=== PATIENT | female | born 1935 | race Caucasian/White ===

== ENCOUNTER → 2019-01-26 | Outpatient (CLI) | payer MEDICARE ==
[~2019-01-26] MED LIST: AMOX-355 PO; CALC-656 PO; CYAN10007 PO; DOCU100T7 PO; FLUT16SP22 NS; HYDR1TAB PO; LOSA50TA6 PO; MULT-608 PO; OMEG1CAP51 PO; PRD20T PO
--- NOTE | 2019-01-26 11:19 | Diagnostic Imaging Report ---
KNEE 3 VIEW RIGHT COMPARISON: None available. INDICATION: Acute right knee pain. No known injury. TECHNIQUE: Non-weight bearing AP, oblique, and lateral views of the right knee. FINDINGS: No fracture or traumatic malalignment. Minimal tricompartmental joint space narrowing and marginal ossified formation. No knee joint effusion. IMPRESSION: No acute osseous abnormality. Dictated by: Dictated on workstation # [id number]
== END ==
LOC: RAD FS 10:17
PROVIDERS: ATTEND Nurse Practitioner Family
DX: M25.561 Pain in right knee (principal)
CPT/HCPCS: 73562

== ENCOUNTER 2019-11-12 06:08 | Inpatient (IN) | payer MEDICARE ==
[2019-11-12] VITALS (16 sets, daily range): BP systolic 81–127; BP diastolic 39–81
[~2019-11-12] VITALS: Ht 165.1 cm; Wt 73.8 kg
[2019-11-12] MEDS ORDERED: HEParin 1000 UNIT/ML (10ML VIAL) FOR BOLUS ONE ×2 (06:26→06:44)
[2019-11-12] MEDS ORDERED: ONDANSETRON 4 MG/2 ML (SDV) Z0FRAN IVP ONE (06:30)
[2019-11-12] MEDS ORDERED: HEParin 1000 UNIT/ML (10ML VIAL) FOR BOLUS IV SCH (06:30)
--- NOTE | 2019-11-12 06:35 | NUR ---
IVF INFUSING AT TIME OF DEPARTURE TO [facility].
[2019-11-12 06:38] LABS: BASOPHILS % (AUTO) 1 % (0-10); EOSINOPHILS # (AUTO) 0.1 10^3/uL (0.0-0.3); EOSINOPHILS % (AUTO) 2 % (0-10); HEMATOCRIT 35 % (35-52); HEMOGLOBIN 11.4 G/DL (11.5-16.0); LYMPHOCYTES # (AUTO) 1.7 X 10^3 (1.0-4.0); LYMPHOCYTES % (AUTO) 29 % (12-44); MEAN CORPUSCULAR HEMOGLOBIN 31 PG (25-34); MEAN CORPUSCULAR HGB CONC 33 G/DL (32-36); MEAN CORPUSCULAR VOLUME 93 FL (80-99); MEAN PLATELET VOLUME 8.8 FL (7.4-10.4); MONOCYTES # (AUTO) 0.5 X 10^3 (0.0-1.0); MONOCYTES % (AUTO) 8 % (0-12); NEUTROPHILS # (AUTO) 3.7 X 10^3 (1.8-7.8); NEUTROPHILS % (AUTO) 61 % (42-75); PLATELET COUNT 220 10^3/uL (130-400); RED CELL DISTRIBUTION WIDTH 12.8 % (10.0-14.5)
--- NOTE | 2019-11-12 06:39 | Cardiology History & Physical ---
HPI-Cardiology Cardiology Consultation Date of Consultation 11/12/19 Date of Admission Time Seen by Provider: 06:36 Indication: chest pain HPI 84 years old lady with no significant past history started to have back pain for the past 2 days, had chest pain with her back pain this morning, called ambulance and noted to have ST elevation NC in the inferior wall, given aspirin and morphine, feeling better but still having active chest pain PMH-Cardiology Immunizations Up To Date Date of Influenza Vaccine: Jul 13, 2011 Reproductive System Hx Reproductive Disorders: No Other PMHx no significant past history Social History Patient Social History Employed/Student: retired Alcohol Use: Denies Use Smoking: Never smoker Recent Foreign Travel: No Contact w/other who traveled: No Family Hx Other noncontributory ROS-Cardiology Review of Systems General: No Chills, No Night Sweats, No Fatigue, No Malaise, No Appetite HEENT: No Head Aches, No Visual Changes, No Eye Pain, No Ear Pain, No Dysphasia, No Sinus Congestion, No Post Nasal Drip, No Sore Throat Pulmonary: No Dyspnea, No Cough, No Pleuritic Chest Pain Cardiovascular: Chest Pain; No: Palpitations, Orthopnea, Paroxysmal Noc. Dyspnea, Edema, Lt Headedness Gastrointestinal: No: Nausea, Vomiting, Abdominal Pain, Diarrhea, Constipation, Melena, Hematochezia Genitourinary: No Dysuria, No Frequency, No Incontinence, No Hematuria, No Retention Musculoskeletal: back pain; No: neck pain, shoulder pain, arm pain, hand pain, leg pain, foot pain Neurological: No: Weakness, Numbness, Incoordination, Change in speech, Confu mira, Seizures Home Medications & Allergies Allergies: Coded Allergies: No Known Drug Allergies (Unverified , 12/02/11) Home Medication List Reviewed: Yes Exam-Cardiology Exam General Appearance: Alert, Oriented X3, Cooperative, No Acute Distress HEENT: Atraumatic, PERRLA Respiratory: Clear to Auscultation, Normal Air Movement Cardiovascular: Regular Rate, Normal S1, Normal S2, No Murmurs Abdominal: Normal Bowel Sounds, Soft, No Tenderness, No Hepatosplenomegaly, No Masses Extremities: No Clubbing, No Cyanosis, No Edema, Normal Pulses, No Ten derness/Swelling Skin: No Rashes, No Breakdown, No Significant Lesion Neuro: Normal Gait, Normal Speech, Strength at 5/5 X4 Ext, Normal Tone, Sensation Intact Psych/Mental Status: Mental Status NL, Mood NL Results Labs Labs Laboratory Tests 11/12/19 06:30: A/P-Cardiology Admission Diagnosis acute ST elevation myocardial infarction Coronary artery disease Hypertension Admission Status: Inpatient Order (span 2 midnights) Reason for Inpatient Admission: AMI Assessment/Plan Acute ST elevation myocardial infarction in the inferior wall, chest pain is bet ter but still having ST elevation, planning to proceed with cardiac catheterization Coronary artery disease, planning for cardiac catheterization Hypertension, monitor blood pressure Hyperlipidemia I will start statin ZULLY CRANE MD Nov 12, 2019 06:39
--- NOTE | 2019-11-12 06:40 | Cardiac Procedure Note-CS/ASA ---
Pre-Procedure Note Pre-Op Procedure Note H&P Reviewed The H&P was reviewed, patient examined and no changes noted. Date H&P Reviewed: Nov 12, 2019 Time H&P Reviewed: 06:39 Conscious Sedation Pre-Proced Time 06:39 ASA Score 3 For ASA 3 and 4: Consider anesthesia and medical clearance. Also, for patients with a history of failed moderate sedation consider anesthesia. Airway Lungs Heart ASA score ASA 1: a normal healthy patient ASA 2: a patient with a mild systemic disease (mid diabetes, controlled hypertension, obesity x ASA 3: a patient with a severe systemic disease that limits activity (angina, COPD, prior Myocardial infarction) ASA 4: a patient with an incapacitating disease that is a constant threat to life (CHF, renal failure) ASA 5: a moribund patient not expected to survive 24 hrs. (ruptured aneurysm) ASA 6: a declared brain- patient whose organs are being harvested. For emergent operations, add the letter E after the classification Mallampati Classification Grade 3 Sedation Plan Analgesia, Amnesia, Plan communicated to team members, Discussed options with patient/fam, Discussed risks with patient/fam The patient is an appropriate candidate to undergo the planned procedure, sedation, and anesthesia. The patient immediately re-assessed prior to indication. ZULLY CRANE MD Nov 12, 2019 06:39
--- NOTE | 2019-11-12 06:42 | ED Chest Pain ---
General Stated Complaint: STEMI Source: patient Exam Limitations: no limitations History of Present Illness Date Seen by Provider: Nov 12, 2019 Time Seen by Provider: 06:19 Initial Comments Here with report of chest pain that initially started yesterday and Cleared overnight but noted again this morning at 4:30 when she woke up. She tried to go to the gym to see if that would help. She mentioned that she had the pain started as back pain and then to the chest centrally. Associated with nausea. At the gym, she noticed worsening pain. She has no significant medical problems and is not on any medicines except for supplements. EMS was summoned to the gym and brought her here. They were able to initiate STEMI activation from the field at about 0604 when they're able to get cell service. Music Manager team activated. They did give aspirin 324 mg by mouth as well as 2 mg of morphine IV and she is currently pain-free but nauseated. Timing/Duration: 24 hours, getting worse, intermittent Severity/Quality: moderate, severe Location: central, back Radiation: back Activities at Onset: none Prior CP/Workup: no prior chest pain, no prior cardiac workup ASA po MEDICAID SPECIALIST: Yes NTG SL MEDICAID SPECIALIST: No Associated Symptoms: No abdominal pain; back pain; No diaphoresis; fatigue; No fever/chills; nausea/vomiting; No shortness of breath; weakness Allergies and Home Medications Allergies Coded Allergies: No Known Drug Allergies (Unverified , 12/02/11) Home Medications Amoxicillin/Clavulanate K 1 Each Tablet, 1 EACH PO BID, (Reported) Calcium Carbonate/Vitamin D3 1 Each Tablet, 1 EACH PO BID, (Reported) Docusate Sodium 100 Mg Tablet, 100 MG PO BID, (Reported) Fluticasone Propionate 16 Gm Naspr, 16 GM NS DAILY, (Reported) Hydrocodone Bit/Acetaminophen 1 Each Tablet, 1-2 EACH PO Q4HR PRN, (Reported) Losartan Potassium 50 Mg Tablet, 50 MG PO BID, (Reported) Multivitamins 1 Tab Tablet, 1 TAB PO DAILY, (Reported) [place]-3 Fatty Acids/Fish Oil 1 Each Capsule, 1 EACH PO TID, (Reported) Prednisone 20 Mg Tab, 20 MG PO DAILY, (Reported) , Fri, Prednisone 20 Mg Tab, 40 MG PO DAILY, (Reported) Friday, Friday, Friday Patient Home Medication List Home Medication List Reviewed: Yes Review of Systems Review of Systems Constitutional: see HPI; No chills, No fever EENTM: No Symptoms Reported Respiratory: No Symptoms Reported Cardiovascular: Chest Pain; Denies Edema Gastrointestinal: No Symptoms Reported Genitourinary: No Symptoms Reported Musculoskeletal: no symptoms reported All Other Systems Reviewed Negative Unless Noted: Yes Past Nunqiwb-Hrzdhs-Wanpla Hx Past Med/Social Hx: Reviewed Nursing Past Med/Soc Hx Patient Social History Recreational Drug Use: No Smoking Status: Never a Smoker Recent Foreign Travel: No Contact w/Someone Who Travel: No Immunizations Up To Date Date of Influenza Vaccine: Jul 13, 2011 Past Medical History Surgeries: Yes (sinus) Respiratory: No Cardiac: No Neurological: No : No Reproductive Disorders: No Family Medical History Reviewed Nursing Family Hx No Pertinent Family Hx Physical Exam Vital Signs Capillary Refill : Height, Weight, BMI Height: '" Weight: lbs. oz. kg; BMI Method: General Appearance: No Apparent Distress, WD/WN HEENT: PERRL/EOMI, Pharynx Normal Neck: Non Tender, Supple Respiratory: Lungs Clear, Normal Breath Sounds Cardiovascular: Regular Rate, Rhythm, No Murmur Gastrointestinal: Non Tender, Soft Extremity: Normal Range of Motion, Non Tender Neurologic/Psychiatric: Alert, Oriented x3 Skin: Normal Color, Warm/Dry Progress/Results/Core Measures Results/Orders Lab Results Laboratory Tests Test 11/12/19 06:30 Range/Units My Orders Orders - BRYCE JAIN MD Cbc With Automated Diff (11/12/19 06:19) Magnesium (11/12/19 06:19) Chest 1 View, Ap/Pa Only (11/12/19 06:19) Ekg Tracing (11/12/19 06:19) Comprehensive Metabolic Panel (11/12/19 06:19) Myoglobin Serum (11/12/19 06:19) Protime With Inr (11/12/19 06:19) Partial Thromboplastin Time (11/12/19 06:19) O2 (11/12/19 06:19) Monitor-Rhythm Ecg Trace Only (11/12/19 06:19) Lipid Panel (11/13/19 06:00) Ed Iv/Invasive Line Start (11/12/19 06:19) Troponin I (11/12/19 06:19) Ondansetron Injection (Zofran Injectio (11/12/19 06:30) Heparin (Bolus Per Protocol) (Heparin (B (11/12/19 06:26) Progress Progress Note : Progress Note Seen and evaluated. IV and aspirin by EMS. Labs, chest x-ray and EKG ordered. I did activate the Music Manager team and did discuss the case with Dr. Wilson at 0605. EKG does indicate acute MS inferior wall. 0635: Dr. Wilson has seen the patient and Music Manager team is here. Patient is going to catheter lab. Heparin 5000 units IV ordered for Dr. Wilson request. This was given. Patient also received Zofran 4 mg IV. Chest x-ray not done prior to patient going to catheter lab. Initial ECG Impression Date: Nov 12, 2019 Initial ECG Impression Time: 06:21 Initial ECG Rate: 64 Initial ECG Rhythm: S.Tach Initial ECG Comparisson: Changed Comment Sinus tachycardia with ST elevation in leads 2, 3 and aVF with reciprocal changes in V1 and V2 as well as aVL. Consistent with inferior and posterior wall MS. Departure Communication (Admissions) Time/Spoke to Admitting Phy: 06:05 Impression Primary Impression: ST elevation MS (STEMI) Qualified Codes: I21.3 - ST elevation (STEMI) myocardial infarction of unspecified site Disposition: ADMITTED INPATIENT Condition: Critical Admissions Decision to Admit Reason: Admit from ER (General) Decision to Admit/Date: Nov 12, 2019 Time/Decision to Admit Time: 06:19 Departure-Patient Inst. Referrals: [facility] (PCP) Primary Care Physician EMERALD CONTRERAS APRN (Family) Primary Care Physician BRYCE JAIN MD Nov 12, 2019 06:42
[2019-11-12] MEDS ORDERED: fentaNYL INJECTION 100 MCG/2 ML AMP ONE (06:44)
[2019-11-12] MEDS ORDERED: NS (IVPB) 250 ML ONE (06:44)
[2019-11-12] MEDS ORDERED: HEParin (CATH LAB) 2,000 ML IV ONE (06:44)
[2019-11-12] MEDS ORDERED: niCARdipine 25 MG/10 ML (CARDENE) AMP IV ONE (06:44)
[2019-11-12] MEDS ORDERED: NITRO DRIP 25000 MCG/D5W 250 ML IV ONE (06:44)
[2019-11-12] MEDS ORDERED: MIDAZOLAM 5 MG/5 ML (VERSED) VIAL ONE (06:44)
[2019-11-12] MEDS ORDERED: LIDOCAINE 1% INJ 20 ML 20 ML VIAL ONE (06:44)
[2019-11-12] MEDS ORDERED: NS IV 1000 ML 1,000 ML ONE ×2 (06:44→07:37)
[2019-11-12] MEDS ORDERED: EPTIFIBATIDE BOLUS 20 ML IV ONE (06:45)
[2019-11-12] MEDS ORDERED: ATROPINE INJECTION 1 MG/10 ML SYR (ABBOTT) ONE (06:45)
[2019-11-12 06:51] LABS: PROTHROMBIN TIME PATIENT 14.1 SEC (12.2-14.7)
[2019-11-12] MEDS: NS IV 1000 ML 1,000 ML IV SCH ×2 (07:00→18:16)
[2019-11-12] MEDS ORDERED: DOPamine DRIP 250 ML IV ONE (07:02)
[2019-11-12 07:14] LABS: ALANINE AMINOTRANSFERASE 13 U/L (0-55); ALBUMIN 3.6 GM/DL (3.2-4.5); ALKALINE PHOSPHATASE 72 U/L (40-136); BILIRUBIN,TOTAL 0.2 MG/DL (0.1-1.0); BUN/CREATININE RATIO 20; CALCIUM 8.3 MG/DL (8.5-10.1); CARBON DIOXIDE 22 MMOL/L (21-32); CHLORIDE 109 MMOL/L (98-107); CREATININE SERUM 0.74 MG/DL (0.60-1.30); GFR ESTIMATED > 60; GLUCOSE 125 MG/DL (70-105); MAGNESIUM 1.7 MG/DL (1.6-2.4); POTASSIUM 3.7 MMOL/L (3.6-5.0); SODIUM 140 MMOL/L (135-145); TOTAL PROTEIN 6.4 GM/DL (6.4-8.2)
[2019-11-12] MEDS ORDERED: morphine INJ 10 MG/ML 1ML (SYR OR VIAL) ONE (07:24)
[2019-11-12] MEDS ORDERED: CLOPIDOGREL 300 MG (PLAVIX) TABLET PO ONE (07:25)
[2019-11-12] MEDS ORDERED: PATIENT MAY USE OWN MEDS, ALL PO SCH (07:45)
[2019-11-12] MEDS ORDERED: NS IV 1000 ML 1,000 ML IV SCH (08:00)
--- NOTE | 2019-11-12 10:14 | Cardiac Cath Report ---
Cardiac Cath Report Physician (s)/Cow Buyer (s) Physician ZULLY CRANE MD Pre-Procedure Diagnosis Pre-Procedure Diagnosis: acute myocardial infarction Post-Procedure Note Procedure Start Date: Nov 12, 2019 Name of Procedure: left heart catheterization Stent to the right coronary artery Left ventriculogram Aortic root angiogram Aortic arch angiogram Findings/Procedure Note PROCEDURE NOTE: 84-year-old lady admitted with acute ST elevation myocardial infarctions inferior wall, started to have chest pain this morning, has been having back pain for few days. Brought for emergency cardiac catheterization. After explaining the procedure to the patient, all pros and cons were explained, all questions were answered. The patient signed the consent and then she was placed on the cardiac catheterization laboratory. Groin was prepped SL fashion local anesthesia was used. Sheath placed in the right femoral artery, I used JL4 0.5 Taxus the left coronary system, angiogram was done then advanced FR guide to the right coronary artery that was totally occluded, patient received 5000 units of heparin in the emergency room, double bolus Integrilin and aspirin and Plavix. BMW wire was advanced then using 3 x 20 balloon predilated, had some establishment of flow, door to balloon time was 34 minutes, there was severe stenosis in the midright coronary artery that was resistant to multiple inflation, finally I was able to break it (under 20 tae pressure, proceeded with balloon to the mid and distal right coronary artery then stent deployment using Annie 3.5 x 23 followed by 3.5 x 12 Annie overlapping stents expanded to 4 mm using a noncompliant balloon, angiogram showed excellent results. Pigtail catheter advanced to the left ventricular cavity and left ventricular gram was done then aortic root angiogram was done and aortic arch angiogram was done. At the end of the procedure the sheath was removed. Closure device was used FINDINGS: Hemodynamics LV 101/23, end-diastolic pressure 23 Aorta 123/64 mean of 73 ANATOMY: Left Main has mild disease Left Anterior Descending has severe stenosis at the midportion, tortuous artery Left Circumflex has moderate disease Right Coronory Artery is large dominant artery, totally occluded with heavy thrombus, complex intervention with multiple balloons then deployment of 2 overlapping Annie stent 3.5 x 23 followed by 3.5 x 12 mm expanded to 4 mm with excellent results LV Gram showed mild hypokinesia at the inferior wall, ejection fraction 50 percent Aorta evaluation done with aortic root angiogram which showed dilated ascending aorta and aortic root measuring 3.6 cm. Aortic arch angiogram showed dilated aortic arch and descending thoracic aortic aneurysm measuring 4 cm, calcified right innominate, left subclavian and left carotid arteries. CONCLUSION: 1. Acute ST elevation myocardial infarction with occlusion of the right coronary artery, door to balloon time 34 minutes. 2. Balloon angioplasty and stenting to the right coronary artery using 2 overlapping stents Annie 3.5 x 23 and 3.5 x 12 mm expanded to 4 mm with good results 3. Severe stenosis in the mid LAD, will need intervention at a later point 4. Moderate disease in the circumflex artery 5. Normal left ventricle size with hypokinesia at the inferior wall and some ejection fraction 50 percent 6. Thoracic aortic aneurysm, ascending aorta measuring 3.6 cm and ascending aorta measuring 4 cm DISCUSSION AND RECOMMENDATION: Maximize medical therapy, possible intervention on the LAD in the future Anesthesia Type: Conscious Sedation Estimated blood loss (mL): 50 ml Contrast Amount: 199 ml Total Radiation Dose: 855 mGy Post-Procedure Diagnosis Post-operative diagnosis: Acute ST elevation myocardial infarction Coronary artery disease Hypertension Thoracic aortic aneurysm ZULLY CRANE MD Nov 12, 2019 10:14
[2019-11-12] MEDS ORDERED: MULT-436 PO (13:17)
[2019-11-12] MEDS ORDERED: ZINC50TA51 PO (13:17)
[2019-11-12] MEDS ORDERED: VITA400C60 PO (13:17)
[2019-11-12] MEDS ORDERED: OMG1KC PO (13:17)
[2019-11-12] MEDS ORDERED: LORA10TA76 PO (13:17)
[2019-11-12] MEDS ORDERED: DOCU100C37 PO (13:17)
--- NOTE | 2019-11-12 13:18 | NUR ---
PATIENT STATES SHE DOES NOT TAKE ANY PRESCRIPTION MEDICATION. SHE TAKES THE FOLLOWING OTC: ONE A DAY VITAMIN DAILY FISH OIL BID VITAMIN E DAILY CLARITIN (SOME EQUATE VERSION) DAILY ZINC DAILY STOOL SOFTENER BID SHE WISHES TO USE [facility] [facility] IN [place] FOR ANY NEW PRESCRIPTION NEEDS.
--- NOTE | 2019-11-12 13:26 | Consultation - Hospitalist ---
HPI History of Present Illness: HPI/Chief Complaint 84-year-old male with no known medical history who presented to the emergency department due to chest pain. She reports that her symptoms started roughly 1 week ago with back pain. This continued to worsen and became very severe yesterday. She kept thinking that this would get better when she went to work out this morning she was unable to exercise at her normal level. She decided to drive home instead and became very diaphoretic. She went home and was nauseous and felt as if she needed to have a bowel movement. After this she laid down on her bed and called her landlord who recommended calling 911. When EMS got there EKG was done which revealed a STEMI and she was brought to the emergency room and taken emergently to catheter lab. She had an RCA stent and has residual severe disease in LAD. She was also found to have ascending and descending aortic aneurysms. She was admitted to Dr. Wilson and I'm consultation for medical management. Source: patient Exam Limitations: no limitations Date Seen 11/12/19 Attending Physician Tiffanie Wilson MD [facility] Referring Physician Dr Wilson Date of Admission Home Medications & Allergies Home Medications Reviewed patient Home Medication Reconciliation performed by pharmacy medication reconciliations automotive maintenance technician and/or nursing. Patients Allergies have been reviewed. Allergies Allergies Coded Allergies No Known Drug Allergies (Unverified12/02/11) Past Yqpyrlb-Eiktlq-Isfdtp Hx Past Med/Social Hx: Reviewed Nursing Past Med/Soc Hx Patient Social History Employed/Student: retired Alcohol Use: Denies Use Recreational Drug Use: No Smoking Status: Never a Smoker Recent Foreign Travel: No Contact w/other who traveled: No Recent Infectious Disease Expo: No Immunizations Up To Date Date of Influenza Vaccine: Jul 13, 2011 Past Medical History : No Reproductive: No Family History Reviewed Nursing Family Hx No Pertinent Family Hx Review of Systems Constitutional: see HPI, diaphoresis EENTM: no symptoms reported Respiratory: no symptoms reported Cardiovascular: see HPI Gastrointestinal: see HPI Genitourinary: no symptoms reported Musculoskeletal: no symptoms reported Skin: no symptoms reported Psychiatric/Neurological: No Symptoms Reported Physical Exam Physical Exam Vital Signs Vital Signs - First Documented 11/12/19 11/12/19 06:20 06:50 Temp 35.7 Pulse 63 Resp 16 B/P (MAP) 181/83 (115) Pulse Ox 98 O2 Delivery Nasal Cannula O2 Flow Rate 2.00 FiO2 98 Capillary Refill : Less Than 3 Seconds Height, Weight, BMI Height: '" Weight: lbs. oz. kg; 24.10 BMI Method: General Appearance: No Apparent Distress, WD/WN HEENT: Pharynx Normal; No Scleral Icterus (L), No Scleral Icterus (R) Neck: Supple; No Thyromegaly Respiratory: Lungs Clear, No Accessory Muscle Use, No Respiratory Distress Cardiovascular: Regular Rate, Rhythm, No JVD, No Murmur Gastrointestinal: Normal Bowel Sounds, Non Tender, Soft Extremity: No Calf Tenderness, No Pedal Edema Neurologic/Psychiatric: Alert, Oriented x3, Normal Mood/Affect Skin: Normal Color, Warm/Dry Results Results/Procedures Labs Laboratory Tests 11/12/19 06:30 Patient resulted labs reviewed. 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
[2019-11-12] MEDS: meTOprolol TARTRATE 25 MG (LOPRESSOR) TABLET PO SCH ×2 (15:59→20:11)
[2019-11-12] MEDS: ASPIRIN E.C. 81 MG (ECOTRIN) TAB PO SCH (15:59)
[2019-11-12] MEDS: CLOPIDOGREL 75 MG (PLAVIX) TABLET PO SCH (15:59)
[2019-11-13] VITALS (23 sets, daily range): BP systolic 68–135; BP diastolic 41–87
[2019-11-13 03:40] LABS: HEMOGLOBIN 9.3 G/DL (11.5-16.0); MEAN PLATELET VOLUME 9.1 FL (7.4-10.4); RED CELL DISTRIBUTION WIDTH 12.8 % (10.0-14.5); WHITE BLOOD COUNT 5.9 10^3/uL (4.3-11.0)
[2019-11-13] MEDS: NS IV 1000 ML 1,000 ML IV SCH ×2 (03:42→14:22)
[2019-11-13 04:03] LABS: BUN/CREATININE RATIO 18; CALCIUM 7.8 MG/DL (8.5-10.1); CARBON DIOXIDE 19 MMOL/L (21-32); CHLORIDE 108 MMOL/L (98-107); CHOLESTEROL 134 MG/DL (< 200); CREATININE SERUM 0.73 MG/DL (0.60-1.30); GFR ESTIMATED > 60; GLUCOSE 93 MG/DL (70-105); HDL CHOLESTEROL 42 MG/DL (40-60); POTASSIUM 3.8 MMOL/L (3.6-5.0); SODIUM 135 MMOL/L (135-145); TRIGLYCERIDES 43 MG/DL (<150); VLDL CHOLESTEROL 9 MG/DL (5-40)
--- NOTE | 2019-11-13 07:54 | Cardiology Progress Note ---
Subjective Date Seen by Provider: Nov 13, 2019 Time Seen by Provider: 07:52 Subjective/Events-last exam Patient is laying down in bed, feeling well, no chest pain was reported. Review of Systems General: No Chills, No Night Sweats, No Fatigue, No Malaise, No Appetite, No Other HEENT: No Head Aches, No Visual Changes, No Eye Pain, No Ear Pain, No Dysphasia, No Sinus Congestion, No Post Nasal Drip, No Sore Throat, No Other Pulmonary: No Dyspnea, No Cough, No Pleuritic Chest Pain, No Other Cardiovascular: No: Chest Pain, Palpitations, Orthopnea, Paroxysmal Noc. Dyspnea, Edema, Lt Headedness, Other Objective-Cardiology Exam Last Set of Vital Signs Vital Signs 11/12/19 11/12/19 11/13/19 11/13/19 06:20 10:25 03:22 06:00 Temp 36.4 Pulse 52 Resp 14 B/P (MAP) 93/55 (68) Pulse Ox 97 O2 Delivery Room Air O2 Flow Rate 2.00 FiO2 98 Capillary Refill : Less Than 3 Seconds I&O Intake and Output 11/13/19 00:00 Intake Total 4330 ml Output Total 425 ml Balance 3905 ml Intake Oral 1330 ml IV Total 3000 ml Output Urine Total 425 ml # Voids 4 Daily Weight Change No General: Alert, Oriented X3, Cooperative, No Acute Distress HEENT: Atraumatic, PERRLA Lungs: Clear to Auscultation, Normal Air Movement Heart: Regular Rate, Normal S1, Normal S2, No Murmurs Abdomen: Normal Bowel Sounds, Soft, No Tenderness, No Hepatosplenomegaly, No Masses Extremities: No Clubbing, No Cyanosis, No Edema, Normal Pulses, No Tenderness/Swelling Skin: No Rashes, No Breakdown, No Significant Lesion Neuro: Normal Gait, Normal Speech, Strength at 5/5 X4 Ext, Normal Tone, Sensation Intact Psych/Mental Status: Mental Status NL, Mood NL Results Lab Laboratory Tests 11/13/19 03:23 A/P-Cardiology Admission Diagnosis acute ST elevation myocardial infarction Coronary artery disease Hypertension Assessment/Plan Acute ST elevation myocardial infarction in the inferior wall, status post emergency cardiac catheterization with 2 stents to the right coronary artery Coronary artery disease, cardiac catheterization was done on November 12, 2019 showing total occlusion of the right coronary artery with heavy thrombus, deployment of 2 overlapping stents Annie 3.5 x 23 and 3.5 x 12 expanded to 4 mm with excellent results. Has tortuous LAD with severe stenosis at the midp ortion, thoracic aortic aneurysm was noted in the ascending and descending aorta, possible abdominal aortic aneurysm. Planning to arrange for evaluation at a tertiary care center Hypertension, currently borderline hypotension, monitor blood pressure Hyperlipidemia, started on Lipitor 80 mg daily. Continue to monitor Clinical Quality Measures AMI/AHF: ASA po Prior to arrival: Yes DVT/VTE Risk/Contraindication: Risk Factor Score Per Nursin RFS Level Per Nursing on Admit: 4+=Very High ZULLY CRANE MD Nov 13, 2019 07:54
[2019-11-13] MEDS: ASPIRIN E.C. 81 MG (ECOTRIN) TAB PO SCH (08:40)
[2019-11-13] MEDS: CLOPIDOGREL 75 MG (PLAVIX) TABLET PO SCH (08:40)
[2019-11-13] MEDS: meTOprolol TARTRATE 25 MG (LOPRESSOR) TABLET PO SCH ×2 (08:40→20:41)
[2019-11-13] MEDS ORDERED: ACETAMINOPHEN 500 MG TAB (TYLENOL) ONE (09:55)
[2019-11-13] MEDS ORDERED: ACETAMINOPHEN 500 MG TAB (TYLENOL) PO PRN (10:00)
[2019-11-14] VITALS (24 sets, daily range): BP systolic 104–169; BP diastolic 52–141
[2019-11-14 03:36] LABS: BASOPHILS % (AUTO) 0 % (0-10); EOSINOPHILS # (AUTO) 0.2 10^3/uL (0.0-0.3); EOSINOPHILS % (AUTO) 4 % (0-10); HEMATOCRIT 28 % (35-52); HEMOGLOBIN 9.1 G/DL (11.5-16.0); LYMPHOCYTES # (AUTO) 2.2 X 10^3 (1.0-4.0); LYMPHOCYTES % (AUTO) 44 % (12-44); MEAN CORPUSCULAR HEMOGLOBIN 31 PG (25-34); MEAN CORPUSCULAR HGB CONC 32 G/DL (32-36); MEAN CORPUSCULAR VOLUME 95 FL (80-99); MEAN PLATELET VOLUME 9.2 FL (7.4-10.4); MONOCYTES # (AUTO) 0.5 X 10^3 (0.0-1.0); MONOCYTES % (AUTO) 10 % (0-12); NEUTROPHILS # (AUTO) 2.1 X 10^3 (1.8-7.8); NEUTROPHILS % (AUTO) 42 % (42-75); PLATELET COUNT 177 10^3/uL (130-400); RED CELL DISTRIBUTION WIDTH 12.8 % (10.0-14.5); WHITE BLOOD COUNT 4.9 10^3/uL (4.3-11.0)
[2019-11-14 04:16] LABS: BUN/CREATININE RATIO 11; CALCIUM 8.1 MG/DL (8.5-10.1); CARBON DIOXIDE 20 MMOL/L (21-32); CHLORIDE 111 MMOL/L (98-107); CREATININE SERUM 0.74 MG/DL (0.60-1.30); GFR ESTIMATED > 60; GLUCOSE 103 MG/DL (70-105); MAGNESIUM 1.7 MG/DL (1.6-2.4); PHOSPHORUS 2.3 MG/DL (2.3-4.7); POTASSIUM 3.7 MMOL/L (3.6-5.0); SODIUM 138 MMOL/L (135-145)
[2019-11-14] MEDS: MAGNESIUM 1 GM/100 ML IVPB 100 ML IV SCH ×3 (05:27→06:19)
[2019-11-14] MEDS: KCL 20 MEQ TAB (K-DUR) PO SCH (06:18)
[2019-11-14] MEDS: POTASSIUM CL 10MEQ/50ML IVPB 50 ML IV SCH (06:18)
--- NOTE | 2019-11-14 08:12 | Cardiology Progress Note ---
Subjective Date Seen by Provider: Nov 14, 2019 Time Seen by Provider: 08:11 Subjective/Events-last exam Patient is laying down in bed, feeling better. No new complaint Review of Systems General: No Chills, No Night Sweats, No Fatigue, No Malaise, No Appetite, No Other HEENT: No Head Aches, No Visual Changes, No Eye Pain, No Ear Pain, No Dysphasia, No Sinus Congestion, No Post Nasal Drip, No Sore Throat, No Other Pulmonary: No Dyspnea, No Cough, No Pleuritic Chest Pain, No Other Cardiovascular: No: Chest Pain, Palpitations, Orthopnea, Paroxysmal Noc. Dyspnea, Edema, Lt Headedness, Other Objective-Cardiology Exam Last Set of Vital Signs Vital Signs 11/12/19 11/12/19 11/14/19 11/14/19 06:20 10:25 04:16 06:00 Temp 37.0 Pulse 66 Resp 22 B/P (MAP) 128/82 (97) Pulse Ox 92 O2 Delivery Room Air O2 Flow Rate 2.00 FiO2 98 Capillary Refill : Less Than 3 Seconds I&O Intake and Output 11/14/19 00:00 Intake Total 4275 ml Output Total 2600 ml Balance 1675 ml Intake Oral 1775 ml IV Total 2500 ml Output Urine Total 2600 ml General: Alert, Oriented X3, Cooperative, No Acute Distress HEENT: Atraumatic, PERRLA Lungs: Clear to Auscultation, Normal Air Movement Heart: Regular Rate, Normal S1, Normal S2, No Murmurs Abdomen: Normal Bowel Sounds, Soft, No Tenderness, No Hepatosplenomegaly, No Masses Extremities: No Clubbing, No Cyanosis, No Edema, Normal Pulses, No Tenderness/Swelling Skin: No Rashes, No Breakdown, No Significant Lesion Neuro: Normal Gait, Normal Speech, Strength at 5/5 X4 Ext, Normal Tone, Sensation Intact Psych/Mental Status: Mental Status NL, Mood NL Results Lab Laboratory Tests 11/14/19 03:14 A/P-Cardiology Admission Diagnosis acute ST elevation myocardial infarction Coronary artery disease Hypertension Assessment/Plan Acute ST elevation myocardial infarction in the inferior wall, status post emergency cardiac catheterization with 2 stents to the right coronary artery Coronary artery disease, cardiac catheterization was done on November 12, 2019 showing total occlusion of the right coronary artery with heavy thrombus, deployment of 2 overlapping stents Annie 3.5 x 23 and 3.5 x 12 expanded to 4 mm with excellent results. Has tortuous LAD with severe stenosis at the midportion, thoracic aortic aneurysm was noted in the ascending and descending aorta, possible abdominal aortic aneurysm. Planning to arrange for evaluation at a tertiary care center Frequent PVCs, ventricular bigeminy and multiple episodes of nonsustained ventricular tachycardia, I am starting amiodarone drip, continue to monitor Hypertension, currently borderline hypotension, monitor blood pressure Hyperlipidemia, started on Lipitor 80 mg daily. Continue to monitor Clinical Quality Measures AMI/AHF: ASA po Prior to arrival: Yes DVT/VTE Risk/Contraindication: Risk Factor Score Per Nursin RFS Level Per Nursing on Admit: 4+=Very High ZULLY CRANE MD Nov 14, 2019 08:12
[2019-11-14] MEDS ORDERED: AMIODARONE FOR BOLUS 150 MG in D5W 100 ML IVPB 100 ML IV ONE (08:15)
[2019-11-14] MEDS: AMIODARONE INJECTION 450 MG in D5W IV SOLUTION (EXCEL) 250 ML IV SCH ×2 (09:09→17:37)
--- NOTE | 2019-11-14 09:21 | Progress Note - Hospitalist ---
Subjective HPI/CC On Admission Date Seen by Provider: Nov 14, 2019 Time Seen by Provider: 09:16 84-year-old male with no known medical history who presented to the emergency department due to chest pain. She reports that her symptoms started roughly 1 week ago with back pain. This continued to worsen and became very severe yesterday. She kept thinking that this would get better when she went to work out this morning she was unable to exercise at her normal level. She decided to drive home instead and became very diaphoretic. She went home and was nauseous and felt as if she needed to have a bowel movement. After this she laid down on her bed and called her landlord who recommended calling 911. When EMS got there EKG was done which revealed a STEMI and she was brought to the emergency room and taken emergently to catheter lab. She had an RCA stent and has residual severe disease in LAD. She was also found to have ascending and descending aortic aneurysms. She was admitted to Dr. Wilson and I'm consultation for medical management. Subjective/Events-last exam Pt reports feeling well. Only complaint is constipation. States this is chronic and she takes stool softeners at home for this. Objective Exam Vital Signs Vital Signs Date Time Temp Pulse Resp B/P (MAP) Pulse Ox O2 Delivery O2 Flow Rate FiO2 11/14/19 07:00 80 11/14/19 06:00 22 128/82 (97) 92 Room Air 11/14/19 04:16 37.0 11/12/19 10:25 2.00 11/12/19 06:20 98 Capillary Refill : Less Than 3 Seconds General Appearance: No Apparent Distress, WD/WN Respiratory: Lungs Clear, No Respiratory Distress Cardiovascular: Regular Rate, Rhythm, No Murmur Gastrointestinal: Normal Bowel Sounds, Soft Neurologic/Psychiatric: Alert, Oriented x3 Results/Procedures Lab Laboratory Tests 11/14/19 03:14 Patient resulted labs reviewed. Assessment/Plan Assessment and Plan Assess & Plan/Chief Complaint STEMI HTN s/p PCI on 11/12 Will need eventual treatment of LAD per Dr Wilson's note DAPT BP improved Lipitor Nonsustained V-tach On amiodarone gtt telemetry Mag 1.7- replaced this AM Constipation Will add bowel regimen Diagnosis/Problems Diagnosis/Problems (1) ST elevation [place] (STEMI) Status: Acute Qualifiers: Involved coronary artery: right coronary artery Qualified Codes: I21.11 - ST elevation (STEMI) myocardial infarction involving right coronary artery Clinical Quality Measures AMI/AHF: ASA po Prior to arrival: Yes DVT/VTE Risk/Contraindication: Risk Factor Score Per Nursin RFS Level Per Nursing on Admit: 4+=Very High POORNIMA ARREDONDO MD Nov 14, 2019 09:21
[2019-11-14] MEDS ORDERED: BISACODYL 5 MG (DULCOLAX) TABLET PO PRN (09:30)
[2019-11-14] MEDS: meTOprolol TARTRATE 25 MG (LOPRESSOR) TABLET PO SCH ×2 (10:06→22:22)
[2019-11-14] MEDS: ASPIRIN E.C. 81 MG (ECOTRIN) TAB PO SCH (10:07)
[2019-11-14] MEDS: CLOPIDOGREL 75 MG (PLAVIX) TABLET PO SCH (10:08)
--- NOTE | 2019-11-14 19:55 | NUR ---
This RN notified Dr. Wilson that patient is complaining of chest pain 03/22 that is radiating to her back. Stat EKG completed at this time and results sent to Dr. Wilson. Pt stated, "My pain is now a 3 out of 10 after I got up and walked in the room". Dr. Wilson ordered sublingual nitroglycerin, pt states her pain is relieved after one tablet. This RN will continue to monitor.
[2019-11-14] MEDS ORDERED: NITROGLYCERIN 0.4 MG SL TABS BTL 25'S SL PRN (20:00)
[2019-11-14] MEDS: DOCUSATE SODIUM 100 MG (COLACE) CAP PO SCH (20:30)
[2019-11-15] VITALS (11 sets, daily range): BP systolic 93–159; BP diastolic 51–109
[2019-11-15 03:55] LABS: BASOPHILS % (AUTO) 0 % (0-10); EOSINOPHILS # (AUTO) 0.2 10^3/uL (0.0-0.3); EOSINOPHILS % (AUTO) 3 % (0-10); HEMATOCRIT 30 % (35-52); HEMOGLOBIN 9.7 G/DL (11.5-16.0); LYMPHOCYTES # (AUTO) 1.8 X 10^3 (1.0-4.0); LYMPHOCYTES % (AUTO) 35 % (12-44); MEAN CORPUSCULAR HEMOGLOBIN 31 PG (25-34); MEAN CORPUSCULAR HGB CONC 33 G/DL (32-36); MEAN CORPUSCULAR VOLUME 94 FL (80-99); MEAN PLATELET VOLUME 9.6 FL (7.4-10.4); MONOCYTES # (AUTO) 0.5 X 10^3 (0.0-1.0); MONOCYTES % (AUTO) 10 % (0-12); NEUTROPHILS # (AUTO) 2.6 X 10^3 (1.8-7.8); NEUTROPHILS % (AUTO) 51 % (42-75); PLATELET COUNT 185 10^3/uL (130-400); RED CELL DISTRIBUTION WIDTH 12.8 % (10.0-14.5)
[2019-11-15 04:14] LABS: BUN/CREATININE RATIO 10; CALCIUM 8.2 MG/DL (8.5-10.1); CARBON DIOXIDE 23 MMOL/L (21-32); CHLORIDE 109 MMOL/L (98-107); CREATININE SERUM 0.69 MG/DL (0.60-1.30); GFR ESTIMATED > 60; GLUCOSE 91 MG/DL (70-105); MAGNESIUM 1.8 MG/DL (1.6-2.4); PHOSPHORUS 2.4 MG/DL (2.3-4.7); POTASSIUM 3.7 MMOL/L (3.6-5.0); SODIUM 140 MMOL/L (135-145)
[2019-11-15] MEDS: POTASSIUM CL 10MEQ/50ML IVPB 50 ML IV SCH (05:00)
[2019-11-15] MEDS: KCL 20 MEQ TAB (K-DUR) PO SCH (05:02)
[2019-11-15] MEDS: MAGNESIUM 1 GM/100 ML IVPB 100 ML IV SCH (05:02)
[2019-11-15] MEDS: DOCUSATE SODIUM 100 MG (COLACE) CAP PO SCH (08:28)
[2019-11-15] MEDS: ASPIRIN E.C. 81 MG (ECOTRIN) TAB PO SCH (08:28)
[2019-11-15] MEDS: meTOprolol TARTRATE 25 MG (LOPRESSOR) TABLET PO SCH (08:29)
[2019-11-15] MEDS: CLOPIDOGREL 75 MG (PLAVIX) TABLET PO SCH (08:29)
--- NOTE | 2019-11-15 09:05 | Cardiology Progress Note ---
Subjective Date Seen by Provider: Nov 15, 2019 Time Seen by Provider: 09:03 Subjective/Events-last exam Patient is in bed, feeling better. No new complaint Head and episode of chest pain yesterday and responded to nitroglycerin Review of Systems General: No Chills, No Night Sweats, No Fatigue, No Malaise, No Appetite, No Other HEENT: No Head Aches, No Visual Changes, No Eye Pain, No Ear Pain, No Dysphasia, No Sinus Congestion, No Post Nasal Drip, No Sore Throat, No Other Pulmonary: No Dyspnea, No Cough, No Pleuritic Chest Pain, No Other Cardiovascular: Chest Pain; No: Palpitations, Orthopnea, Paroxysmal Noc. Dyspnea, Edema, Lt Headedness, Other Objective-Cardiology Exam Last Set of Vital Signs Vital Signs 11/12/19 11/12/19 11/15/19 11/15/19 11/15/19 06:20 10:25 06:00 07:00 08:00 Pulse 69 Resp 20 B/P (MAP) 141/78 (99) Pulse Ox 93 O2 Delivery Room Air O2 Flow Rate 2.00 FiO2 98 Capillary Refill : Less Than 3 Seconds I&O Intake and Output 11/15/19 00:00 Intake Total 2420 ml Output Total 4700 ml Balance -2280 ml Intake Oral 2220 ml IV Total 200 ml Output Urine Total 4700 ml General: Alert, Oriented X3, Cooperative, No Acute Distress HEENT: Atraumatic, PERRLA Neck: Supple, No JVD Lungs: Clear to Auscultation, Normal Air Movement Heart: Regular Rate, Normal S1, Normal S2, No Murmurs Abdomen: Normal Bowel Sounds, Soft, No Tenderness, No Hepatosplenomegaly, No Masses Extremities: No Clubbing, No Cyanosis, No Edema, Normal Pulses, No Tenderness/Swelling Skin: No Rashes, No Breakdown, No Significant Lesion Neuro: Normal Gait, Normal Speech, Strength at 5/5 X4 Ext, Normal Tone, Sensation Intact Psych/Mental Status: Mental Status NL, Mood NL Results Lab Laboratory Tests 11/15/19 03:30 A/P-Cardiology Admission Diagnosis acute ST elevation myocardial infarction Coronary artery disease Hypertension Assessment/Plan Acute ST elevation myocardial infarction in the inferior wall, status post emergency cardiac catheterization with 2 stents to the right coronary artery Coronary artery disease, cardiac catheterization was done on November 12, 2019 showing total occlusion of the right coronary artery with heavy thrombus, deployment of 2 overlapping stents Annie 3.5 x 23 and 3.5 x 12 expanded to 4 mm with excellent results. Has tortuous LAD with severe stenosis at the midportion, thoracic aortic aneurysm was noted in the ascending and descending aorta, possible abdominal aortic aneurysm. I will evaluate CT angiogram of the thoracic and abdominal aorta Frequent PVCs, ventricular bigeminy and multiple episodes of nonsustained ventricular tachycardia, better after receiving amiodarone drip, I will start oral amiodarone and consult Dr. Rey Congestive heart failure, acute left ventricular systolic dysfunction, ischemic cardiomyopathy, started on beta blockers, I'll add low-dose LUÍS inhibitor and evaluate tolerance and response Hypertension, currently borderline hypotension, monitor blood pressure Hyperlipidemia, started on Lipitor 80 mg daily. Continue to monitor Clinical Quality Measures AMI/AHF: ASA po Prior to arrival: Yes DVT/VTE Risk/Contraindication: Risk Factor Score Per Nursin RFS Level Per Nursing on Admit: 4+=Very High ZULLY CRANE MD Nov 15, 2019 09:05
[2019-11-15] MEDS ORDERED: LOSARTAN 25 MG (COZAAR) TAB PO SCH (09:15)
[2019-11-15] MEDS ORDERED: AMIODARONE 200 MG (CORDARONE) TAB PO SCH (09:15)
[2019-11-15] MEDS ORDERED: IOHEXOL 350 MG/ML 100 ML (OMNIPAQUE 350) VIAL IV ONE (13:00)
[2019-11-15] MEDS ORDERED: HOLD METFORMIN - RECEIVED CONTRAST 20 ML VIAL IV SCH (13:00)
[2019-11-15] MEDS ORDERED: NS 100 ML (IVPB) BAG IV ONE (13:00)
--- NOTE | 2019-11-15 13:25 | Diagnostic Imaging Report ---
EXAMINATION: CT angiography of the chest and abdomen. TECHNIQUE: After intravenous administration of contrast, thin section axial CT angiography of the abdomen and chest were obtained. 3D MIP reformats were provided. All CT scans use one or more of the following dose optimizing techniques: automated exposure control, MA and/or KvP adjustment based on a patient size and exam type, or iterative reconstruction. HISTORY: Aortic aneurysm COMPARISON: None available. FINDINGS: The sinuses of Valsalva measure 3.4 x 3.5 x 3.5 cm from commissure to cusp. The sinotubular junction is effaced. The max ascending aorta is 4.4 x 4.2 cm. The aortic arch measures 4.0 x 4.0 cm. The descending thoracic aorta measures 3.7 x 3.5 cm. The descending aorta at the diaphragmatic hiatus measures 3.7 x 3.2 cm. The abdominal aorta measures 2.4 x 2.1 cm. A stent is present in the right coronary artery. There is mild peripheral septal line thickening which may represent fibrosis or pulmonary edema. There are small bilateral pleural effusions. No pneumothorax. No suspicious nodules. Heart size is normal. No pericardial effusion. There is no axillary or supraclavicular lymphadenopathy. There is no mediastinal lymphadenopathy. The liver is normal without focal lesion. There is no biliary ductal dilation. Gallbladder is normal. Pancreas is normal. Spleen is normal. Adrenal glands are normal. The kidneys are normal. There is no hydronephrosis. Visualized bowel is normal in caliber without obstruction or inflammation. No free fluid or air. No abdominal lymphadenopathy. There are no suspicious osseus lesions. IMPRESSION: 1. Ascending aortic aneurysm with another aneurysm involving the distal arch and proximal descending thoracic aorta. Measurements are provided above. 2. Small bilateral pleural effusions and mild pulmonary edema versus fibrosis. Dictated by: Dictated on workstation # [id number]
[2019-11-15] MEDS ORDERED: ATOR80TA76 PO (14:16)
[2019-11-15] MEDS ORDERED: ASPI-983 PO (14:16)
[2019-11-15] MEDS ORDERED: LOSA25TA41 PO (14:16)
[2019-11-15] MEDS ORDERED: AMIO200T4 PO (14:16)
[2019-11-15] MEDS ORDERED: METO-333 PO (14:16)
[2019-11-15] MEDS ORDERED: CLOP75TA28 PO (14:16)
--- NOTE | 2019-11-15 15:00 | Progress Note - Hospitalist ---
Subjective HPI/CC On Admission Date Seen by Provider: Nov 15, 2019 Time Seen by Provider: 08:50 84-year-old male with no known medical history who presented to the emergency department due to chest pain. She reports that her symptoms started roughly 1 week ago with back pain. This continued to worsen and became very severe yesterday. She kept thinking that this would get better when she went to work out this morning she was unable to exercise at her normal level. She decided to drive home instead and became very diaphoretic. She went home and was nauseous and felt as if she needed to have a bowel movement. After this she laid down on her bed and called her landlord who recommended calling 911. When EMS got there EKG was done which revealed a STEMI and she was brought to the emergency room and taken emergently to catheter lab. She had an RCA stent and has residual severe disease in LAD. She was also found to have ascending and descending aortic aneurysms. She was admitted to Dr. Wilson and I'm consultation for medical management. Subjective/Events-last exam She denies any complaints or concerns today. She had some chest pain yesterday but not at this time. She denies any shortness of breath. She denies any fevers or chills. She denies any abdominal pain, nausea, or vomiting. She has not yet had a bowel movement. Objective Exam Vital Signs Vital Signs Date Time Temp Pulse Resp B/P (MAP) Pulse Ox O2 Delivery O2 Flow Rate FiO2 11/15/19 14:00 60 19 147/78 (101) 92 Room Air 11/15/19 12:30 37.0 11/12/19 10:25 2.00 11/12/19 06:20 98 Capillary Refill : Less Than 3 Seconds General Appearance: No Apparent Distress, WD/WN HEENT: PERRL/EOMI, Pharynx Normal Neck: Normal Inspection, Supple Respiratory: Lungs Clear, Normal Breath Sounds, No Respiratory Distress Cardiovascular: Regular Rate, Rhythm, No Edema, No Murmur Gastrointestinal: Normal Bowel Sounds, Non Tender, Soft Extremity: Normal Inspection, Non Tender, No Pedal Edema Neurologic/Psychiatric: Alert, Oriented x3, No Motor/Sensory Deficits, Normal Mood/Affect Skin: Normal Color, Warm/Dry Results/Procedures Lab Laboratory Tests 11/15/19 03:30 Patient resulted labs reviewed. Imaging: Reviewed Imaging Report Assessment/Plan Assessment and Plan Assess & Plan/Chief Complaint STEMI Aortic aneurysm HTN s/p PCI on 11/12 Need staged PCI to the LAD Continue DAPT and Lipitor CT angiogram ordered to evaluate aorta Nonsustained V-tach Continue telemetry Cardiology managing continue to monitor electrolytes and replace as needed Constipation Continue bowel regimen Diagnosis/Problems Diagnosis/Problems (1) ST elevation [place] (STEMI) Status: Acute Qualifiers: Involved coronary artery: right coronary artery Qualified Codes: I21.11 - ST elevation (STEMI) myocardial infarction involving right coronary artery (2) Aortic aneurysm Status: Acute Clinical Quality Measures AMI/AHF: ASA po Prior to arrival: Yes DVT/VTE Risk/Contraindication: Risk Factor Score Per Nursin RFS Level Per Nursing on Admit: 4+=Very High RUIZ DOBSON MD Nov 15, 2019 15:00
--- NOTE | 2019-11-15 16:45 | Cardiology Discharge Summary ---
Discharge Summary Hospital Course Problems Reviewed?: Yes Hospital Course Date of Admission: Nov 12, 2019 at 06:35 Admission Diagnosis : Family Physician/Provider: Alyse Tran Aprn Date of Discharge: 11/15/19 Discharge Diagnosis: [ST elevation myocardial infarction Coronary artery disease Thoracic aortic aneurysm Hypertension Hyperlipidemia ] Hospital Course: [ Acute ST elevation myocardial infarction in the inferior wall, status post emergency cardiac catheterization with 2 stents to the right coronary artery Coronary artery disease, cardiac catheterization was done on November 12, 2019 showing total occlusion of the right coronary artery with heavy thrombus, deployment of 2 overlapping stents Annie 3.5 x 23 and 3.5 x 12 expanded to 4 mm with excellent results. Has tortuous LAD with severe stenosis at the midportion, thoracic aortic aneurysm was noted, patient had an episode of chest pain last night, discussed the management plan recommended intervention on the LAD to be done at a tertiary care center, I contacted Dr. Villa who accepted the patient patient will be transferred by private vehicle. Thoracic aortic aneurysm, CT angiogram of the thoracic and abdominal aorta showed largest portion of the aneurysm in the ascending aorta measuring 4.2 cm. Patient will see a thoracic surgeon in [place]. Frequent PVCs, ventricular bigeminy and multiple episodes of nonsustained ventricular tachycardia, better after receiving amiodarone drip, I will start oral amiodarone and consult Dr. Rey Congestive heart failure, acute left ventricular systolic dysfunction, ischemic cardiomyopathy, started on beta blockers, I'll add low-dose LUÍS inhibitor and evaluate tolerance and response Hypertension, currently borderline hypotension, monitor blood pressure Hyperlipidemia, started on Lipitor 80 mg daily. Continue to monitor] Labs and Pending Lab Test: Laboratory Tests 11/15/19 03:30: White Blood Count 5.0, Red Blood Count 3.18L, Hemoglobin 9.7L, Hematocrit 30L, Mean Corpuscular Volume 94, Mean Corpuscular Hemoglobin 31, Mean Corpuscular Hemoglobin Concent 33, Red Cell Distribution Width 12.8, Platelet Count 185, Mean Platelet Volume 9.6, Neutrophils (%) (Auto) 51, Lymphocytes (%) (Auto) 35, Monocytes (%) (Auto) 10, Eosinophils (%) (Auto) 3, Basophils (%) (Auto) 0, Neutrophils # (Auto) 2.6, Lymphocytes # (Auto) 1.8, Monocytes # (Auto) 0.5, Eosinophils # (Auto) 0.2, Basophils # (Auto) 0.0, Sodium Level 140, Potassium Level 3.7, Chloride Level 109H, Carbon Dioxide Level 23, Anion Gap 8, Blood Urea Nitrogen 7, Creatinine 0.69, Estimat Glomerular Filtration Rate > 60, BUN/Creatinine Ratio 10, Glucose Level 91, Calcium Level 8.2L, Phosphorus Level 2.4, Magnesium Level 1.8, Troponin I 20.939*H Microbiology 11/12/19 MRSA Screen - Final, Complete MRSA not isolated Home Meds Active Aspirin EC (Aspirin) 81 Mg Tablet.dr 81 Mg PO DAILY Losartan Potassium 25 Mg Tablet 25 Mg PO DAILY Metoprolol Tartrate 25 Mg Tablet 12.5 Mg PO BID Atorvastatin Calcium 80 Mg Tablet 80 Mg PO HS Clopidogrel (Clopidogrel Bisulfate) 75 Mg Tablet 75 Mg PO DAILY Amiodarone HCl 200 Mg Tablet 400 Mg PO BID Take 2 tablets twice a day for one week then Take one tablet twice daily Reported Claritin (Loratadine) 10 Mg Tablet 10 Mg PO DAILY Vitamin E (Vitamin E Acetate) 400 Unit Capsule 400 Unit PO DAILY Docusate Sodium 100 Mg Capsule 100 Mg PO BID One Daily Complete (Multivitamin with Minerals) 1 Each Tablet 1 Tab PO DAILY Fish Oil 1,000 mg Capsule (Tiffin 3 Polyunsat Fatty Acids) 1,000 Mg Cap 1,000 Mg PO BID Assessment/Pt DC Instructions Patient will be transferred to [facility] by private vehicle Discharge Physical Examination Allergies: Coded Allergies: No Known Drug Allergies (Unverified , 12/02/11) General Appearance: No Apparent Distress, WD/WN HEENT: PERRL/EOMI, TMs Normal, Pharynx Normal Respiratory: Chest Non Tender, No Respiratory Distress Cardiovascular: Regular Rate, Rhythm, No Gallop, No Murmur Gastrointestinal: No Pulsatile Mass Clinical Quality Measures Admission Status Admission Status: Inpatient Order (span 2 midnights) Reason for Inpatient Admission: Acute myocardial infarction AMI/AHF: ASA po Prior to arrival: Yes DVT/VTE Risk/Contraindication: Risk Factor Score Per Nursin RFS Level Per Nursing on Admit: 4+=Very High ZULLY CRANE MD Nov 15, 2019 16:45
== END 2019-11-15 15:20 | disposition short-term general hospital (02) | DRG 246 ==
LOC: EDUNIT# 06:08 → ER 06:09 → CATH 06:34 → ICU 06:35
PROVIDERS: ADMIT Internal Medicine Cardiovascular Disease; ATTEND Internal Medicine Cardiovascular Disease
PROC: 027035Z Dilation of Coronary Artery, One Artery with Two Drug-eluting Intraluminal Devices, Percutaneous Approach (ICD-10-PCS; principal; 2019-11-12)
PROC: 4A023N7 Measurement of Cardiac Sampling and Pressure, Left Heart, Percutaneous Approach (ICD-10-PCS; 2019-11-12)
PROC: B2111ZZ Fluoroscopy of Multiple Coronary Arteries using Low Osmolar Contrast (ICD-10-PCS; 2019-11-12)
PROC: B2151ZZ Fluoroscopy of Left Heart using Low Osmolar Contrast (ICD-10-PCS; 2019-11-12)
PROC: B3101ZZ Fluoroscopy of Thoracic Aorta using Low Osmolar Contrast (ICD-10-PCS; 2019-11-12)
DX: I21.11 ST elevation (STEMI) myocardial infarction involving right coronary artery (principal); I25.10 Atherosclerotic heart disease of native coronary artery without angina pectoris; I11.0 Hypertensive heart disease with heart failure; I50.21 Acute systolic (congestive) heart failure; I25.5 Ischemic cardiomyopathy; I71.2 Thoracic aortic aneurysm, without rupture; I47.2 Ventricular tachycardia; I49.3 Ventricular premature depolarization; E78.5 Hyperlipidemia, unspecified; K59.09 Other constipation
CPT/HCPCS: 36221; 36415; 71275; 74175; 80048; 80053; 83735; 83874; 84100; 84484; 85025; 85610; 85730; 87081; 93005; 93041; 93306; 93458; 93567; 96374; 96375

== ENCOUNTER 2019-12-27 17:09 | Emergency (ER) | payer MEDICARE ==
[~2019-12-27] VITALS: Ht 157 cm; Wt 70.7 kg
[~2019-12-27 17:09] MED LIST changes: +AMIO200T4 PO; +ASPI-983 PO; +ATOR80TA76 PO; +CLOP75TA28 PO; +DOCU100C37 PO; +LORA10TA76 PO; +LOSA25TA41 PO; +METO-333 PO; +MULT-436 PO; +OMG1KC PO; +VITA400C60 PO; +ZINC50TA51 PO
--- NOTE | 2019-12-27 17:33 | ED Chest Pain ---
General Stated Complaint: BACK PAIN History of Present Illness Date Seen by Provider: Dec 27, 2019 Time Seen by Provider: 17:29 Initial Comments This patient is a 84-year-old female presents to the emergency department complaining of middle back pain. Patient has a history of a heart attack and has had 3 cardiac stents. Patient most recently had mild heart attack with stent placement November 12, 2019. Patient does take multiple medications including amiodarone and metoprolol. Patient states the pain is aching in the middle of her shoulder blades and has been like this most the day. 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 Patient states on pain in her back seems to be correlated with a heart rate in the 40s with heart rate comes up to the mid 50s the pain goes away. With the medical evaluation treatment as needed. Timing/Duration: 4-6 hours Severity/Quality: moderate Location: back Radiation: no radiation Activities at Onset: activity Prior CP/Workup: cardiac cath, echocardiography, heart attack ASA po CREDIT RISK OFFICER: No NTG SL CREDIT RISK OFFICER: No Associated Symptoms: No denies symptoms, No abdominal pain, No back pain, No diaphoresis, No dizziness, No edema, No fatigue, No fever/chills, No headache, No heartburn, No nausea/vomiting, No rash, No shortness of breath, No swelling/lump in chest, No syncope, No weakness Allergies and Home Medications Allergies Coded Allergies: No Known Drug Allergies (Unverified , 12/02/11) Home Medications Amiodarone HCl 200 Mg Tablet, 400 MG PO BID Take 2 tablets twice a day for one week then Take one tablet twice daily Prescribed by: ZULLY CRANE on 11/15/191415 Aspirin 81 Mg Tablet.dr, 81 MG PO DAILY Prescribed by: ZULLY CRANE on 11/15/191415 Atorvastatin Calcium 80 Mg Tablet, 80 MG PO HS Prescribed by: ZULLY CRANE on 11/15/191415 Clopidogrel Bisulfate 75 Mg Tablet, 75 MG PO DAILY Prescribed by: ZULLY CRANE on 11/15/191415 Docusate Sodium 100 Mg Capsule, 100 MG PO BID, (Reported) Loratadine 10 Mg Tablet, 10 MG PO DAILY, (Reported) Losartan Potassium 25 Mg Tablet, 25 MG PO DAILY Prescribed by: ZULLY CRANE on 2/3/20 1416 Metoprolol Tartrate 25 Mg Tablet, 12.5 MG PO BID Prescribed by: ZULLY CRANE on 11/15/19 1416 Multivitamin with Minerals 1 Each Tablet, 1 TAB PO DAILY, (Reported) [place] 3 Polyunsat Fatty Acids 1,000 Mg Cap, 1,000 MG PO BID, (Reported) Vitamin E Acetate 400 Unit Capsule, 400 UNIT PO DAILY, (Reported) Patient Home Medication List Home Medication List Reviewed: Yes Review of Systems Review of Systems Constitutional: no symptoms reported; No see HPI, No chills, No diaphoresis, No dizziness, No fever, No malaise, No weakness, No weight gain, No weight loss, No other EENTM: No No Symptoms Reported, No See HPI, No Blurred Vision, No Double Vision, No Eye Pain, No Eye Tearing, No Ear Drainage, No Ear Pain, No Mouth Pain, No Mouth Swelling, No Nose Congestion, No Nose Pain, No Throat Pain, No Throat Swelling, No Other Respiratory: No Symptoms Reported; Denies See HPI, Denies Cough, Denies Orthopnea, Denies Shortness of Air, Denies SOA With Exertion, Denies SOA at Rest, Denies Stridor, Denies Wheezing, Denies Other Cardiovascular: No Symptoms Reported; Denies See HPI, Denies Chest Pain, Denies Edema, Denies Irregular Heart Rate, Denies Lightheadedness, Denies Palpitations, Denies Syncope, Denies Other Gastrointestinal: No Symptoms Reported; Denies See HPI, Denies Abdomen Distended, Denies Abdominal Pain, Denies Blood Streaked Stools, Denies Constipated, Denies Diarrhea, Denies Difficulty Swallowing, Denies Nausea, Denies Poor Appetite, Denies Poor Fluid Intake, Denies Rectal Bleeding, Denies Vomiting, Denies Other Genitourinary: Denies No Symptoms Reported, Denies See HPI, Denies Burning, Denies Discharge, Denies Drainage, Denies Frequency, Denies Flank Pain, Denies Hematuria, Denies Incontinence, Denies Pain, Denies Urgency, Denies Other Musculoskeletal: No no symptoms reported, No see HPI; back pain; No gout, No joint pain, No joint swelling, No muscle pain, No muscle stiffness, No muscle cramps, No muscle twitching, No muscle weakness, No neck pain, No other Skin: no symptoms reported; No see HPI, No change in color, No change in hair/nails, No dryness, No hx of skin cancer, No lesions, No lumps, No pruritus, No rash, No other Past Lfcdubr-Qoniie-Fcyxfu Hx Patient Social History Recent Foreign Travel: No Contact w/Someone Who Travel: No Immunizations Up To Date Date of Influenza Vaccine: Jul 13, 2011 Past Medical History Surgeries: Yes (sinus) Respiratory: No Cardiac: No Neurological: No Reproductive Disorders: No Family Medical History No Pertinent Family Hx Physical Exam Vital Signs Vital Signs - First Documented 12/27/19 17:19 Temp 36.4 Pulse 47 Resp 15 B/P (MAP) 172/75 (107) Pulse Ox 96 Capillary Refill : Height, Weight, BMI Height: '" Weight: lbs. oz. kg; 24.10 BMI Method: General Appearance: No Apparent Distress, WD/WN HEENT: PERRL/EOMI, TMs Normal, Normal ENT Inspection, Pharynx Normal Neck: Full Range of Motion, Normal Inspection, Non Tender Respiratory: Chest Non Tender, Lungs Clear, Normal Breath Sounds, No Accessory Muscle Use, No Respiratory Distress Cardiovascular: No Edema, No Gallop, No JVD, No Murmur, Normal Peripheral Pulses, Bradycardia Gastrointestinal: Normal Bowel Sounds, No Organomegaly, No Pulsatile Mass, Non Tender Extremity: Normal Capillary Refill, Normal Inspection, Normal Range of Motion, Non Tender, No Calf Tenderness, No Pedal Edema Neurologic/Psychiatric: Alert, Oriented x3, No Motor/Sensory Deficits, Normal Mood/Affect Progress/Results/Core Measures Results/Orders Lab Results Laboratory Tests Test 12/27/19 17:34 Range/Units White Blood Count 6.0 4.3-11.0 10^3/uL Red Blood Count 3.70 L 4.35-5.85 10^6/uL Hemoglobin 11.5 11.5-16.0 G/DL Hematocrit 36 35-52 % Mean Corpuscular Volume 97 80-99 FL Mean Corpuscular Hemoglobin 31 25-34 PG Mean Corpuscular Hemoglobin Concent 32 32-36 G/DL Red Cell Distribution Width 14.0 10.0-14.5 % Platelet Count 270 130-400 10^3/uL Mean Platelet Volume 9.1 7.4-10.4 FL Neutrophils (%) (Auto) 51 42-75 % Lymphocytes (%) (Auto) 32 12-44 % Monocytes (%) (Auto) 9 0-12 % Eosinophils (%) (Auto) 6 0-10 % Basophils (%) (Auto) 1 0-10 % Neutrophils # (Auto) 3.1 1.8-7.8 X 10^3 Lymphocytes # (Auto) 1.9 1.0-4.0 X 10^3 Monocytes # (Auto) 0.6 0.0-1.0 X 10^3 Eosinophils # (Auto) 0.4 H 0.0-0.3 10^3/uL Basophils # (Auto) 0.1 0.0-0.1 10^3/uL Prothrombin Time 13.6 12.2-14.7 SEC INR Comment 1.0 0.8-1.4 Activated Partial Thromboplast Time 37 H 24-35 SEC Sodium Level 139 135-145 MMOL/L Potassium Level 4.1 3.6-5.0 MMOL/L Chloride Level 101 98-107 MMOL/L Carbon Dioxide Level 27 21-32 MMOL/L Anion Gap 11 5-14 MMOL/L Blood Urea Nitrogen 24 H 7-18 MG/DL Creatinine 1.26 0.60-1.30 MG/DL Estimat Glomerular Filtration Rate 40 BUN/Creatinine Ratio 19 Glucose Level 88 70-105 MG/DL Calcium Level 9.3 8.5-10.1 MG/DL Corrected Calcium 9.4 8.5-10.1 MG/DL Magnesium Level 2.0 1.6-2.4 MG/DL Total Bilirubin 0.2 0.1-1.0 MG/DL Aspartate Amino Transf (AST/SGOT) 27 5-34 U/L Alanine Aminotransferase (ALT/SGPT) 20 0-55 U/L Alkaline Phosphatase 107 40-136 U/L Myoglobin 33.1 10.0-92.0 NG/ML Troponin I < 0.30 <0.30 NG/ML Pro-B-Type Natriuretic Peptide 2065.0 H <75.0 PG/ML Total Protein 7.2 6.4-8.2 GM/DL Albumin 3.9 3.2-4.5 GM/DL My Orders Orders - DAQUAN COTTON MD Cbc With Automated Diff (12/27/19 17:26) Magnesium (12/27/19 17:26) Chest 1 View Ap/Pa Only (12/27/19 17:26) Ekg Tracing (12/27/19 17:26) Comprehensive Metabolic Panel (12/27/19 17:26) Myoglobin Serum (12/27/19 17:26) Protime With Inr (12/27/19 17:26) Partial Thromboplastin Time (12/27/19 17:26) O2 (12/27/19 17:26) Monitor-Rhythm Ecg Trace Only (12/27/19 17:26) Ed Iv/Invasive Line Start (12/27/19 17:26) Troponin I Fs (12/27/19 17:26) Probnp Fs (12/27/19 17:26) Aspirin Tablet (Aspirin Tablet) (12/27/19 17:45) Medications Given in ED Current Medications Medications Dose Ordered Sig/Ronda Route Start Time Stop Time Status Last Admin Dose Admin Aspirin 325 mg ONCE ONCE PO 12/27/19 17:45 12/27/19 17:46 DC 12/27/19 17:37 325 MG Vital Signs/I&O 12/27/19 17:19 Temp 36.4 Pulse 47 Resp 15 B/P (MAP) 172/75 (107) Pulse Ox 96 Progress Progress Note : Time: 18:28 Progress Note Patient is pain-free at this time. Heart rate still hovers around 50 bpm. It appears that the chest wall pain and back pain is more related to a low cardiac output. Related to her metoprolol. After discussing with the patient patient states she was advised by cardiology to hold her metoprolol for heart rate was below 60. Patient states she took a half of her metoprolol today. I discussed the patient stop her metoprolol and follow up with her PCP or primer supervisor for further evaluation and treatment. Patient states understanding patient is pain- free at this time will be discharged home per her request. Initial ECG Impression Date: Dec 27, 2019 Initial ECG Impression Time: 17:22 Initial ECG Rate: 49 Initial ECG Rhythm: S.Brant Initial ECG Intervals: Normal Initial ECG Impression: Nonspecific Changes, Sinus Bradycardia Initial ECG Comparisson: No Previous ECG Available Departure Impression Primary Impression: Chest pain Additional Impressions: Bradycardia Medication side effect Disposition: 01 HOME, SELF-CARE Condition: Stable Departure-Patient Inst. Decision time for Depature: 18:30 Referrals: [facility] (PCP) Primary Care Physician EMERALD CONTRERAS APRN (Family) Primary Care Physician Patient Instructions: Bradycardia (DC) Add. Discharge Instructions: Continue with all home medications however with your metoprolol hold if heart rate is less than 60. Follow up with her primary care physician or primer supervisor in the next 2-3 days for further evaluation. DAQUAN COTTON MD Dec 27, 2019 17:33
[2019-12-27] MEDS ORDERED: ASPIRIN 325 MG (5 GR) TABLET PO ONE (17:45)
[2019-12-27 17:57] LABS: PROTHROMBIN TIME PATIENT 13.6 SEC (12.2-14.7)
[2019-12-27 17:59] LABS: BASOPHILS # (AUTO) 0.1 10^3/uL (0.0-0.1); BASOPHILS % (AUTO) 1 % (0-10); EOSINOPHILS # (AUTO) 0.4 10^3/uL (0.0-0.3); EOSINOPHILS % (AUTO) 6 % (0-10); HEMATOCRIT 36 % (35-52); HEMOGLOBIN 11.5 G/DL (11.5-16.0); LYMPHOCYTES # (AUTO) 1.9 X 10^3 (1.0-4.0); LYMPHOCYTES % (AUTO) 32 % (12-44); MEAN CORPUSCULAR HEMOGLOBIN 31 PG (25-34); MEAN CORPUSCULAR HGB CONC 32 G/DL (32-36); MEAN CORPUSCULAR VOLUME 97 FL (80-99); MEAN PLATELET VOLUME 9.1 FL (7.4-10.4); MONOCYTES # (AUTO) 0.6 X 10^3 (0.0-1.0); MONOCYTES % (AUTO) 9 % (0-12); NEUTROPHILS # (AUTO) 3.1 X 10^3 (1.8-7.8); NEUTROPHILS % (AUTO) 51 % (42-75); PLATELET COUNT 270 10^3/uL (130-400)
[2019-12-27 18:16] LABS: ALBUMIN 3.9 GM/DL (3.2-4.5); BILIRUBIN,TOTAL 0.2 MG/DL (0.1-1.0); CALCIUM 9.3 MG/DL (8.5-10.1); CREATININE SERUM 1.26 MG/DL (0.60-1.30); POTASSIUM 4.1 MMOL/L (3.6-5.0); TOTAL PROTEIN 7.2 GM/DL (6.4-8.2)
--- NOTE | 2019-12-27 18:21 | Diagnostic Imaging Report ---
INDICATION: Chest pain. AP view of the chest is obtained with comparison made to study of 12/02/2011. FINDINGS: Overall heart size and pulmonary vascularity are within normal limits. There are prominent interstitial markings in both lungs. 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 This was likely present on the previous study as well. No pneumothorax or consolidation is identified. Overall, no adverse change is identified. IMPRESSION: Possible mild chronic interstitial lung disease without other acute abnormality or adverse change detected. Dictated by: Dictated on workstation # [id number]
[2019-12-27 18:48] VITALS: BP 122/97
--- OUTSIDE RECORDS SUMMARY | 2019-12-28 00:59 | XMS REPORT | Continuity of Care Document ---
Author Organization Unknown Address Unknown Phone Unavailable Allergies Active Description Code Type Severity Reaction Onset Reported/Identified Relationship to Patient Clinical Status Yes No Known Drug Allergies [id number] Drug Allergy Unknown N/A 12/02/2011 Medications There is no data. Problems Date Dx Coded Attending Type Code Diagnosis Diagnosed By 01/26/2019 EMERALD CONTRERAS SUPERVISOR BLASTING Ot M25.561 PAIN IN RIGHT KNEE 01/28/2019 EMERALD CONTRERAS SUPERVISOR BLASTING Ot M25.561 PAIN IN RIGHT KNEE 01/28/2019 EMERALD CONTRERAS SUPERVISOR BLASTING Ot M25.561 PAIN IN RIGHT KNEE 01/28/2019 EMERALD CONTRERAS SUPERVISOR BLASTING Ot M25.561 PAIN IN RIGHT KNEE 11/12/2019 EMERALD CONTRERAS SUPERVISOR BLASTING Ot M25.561 PAIN IN RIGHT KNEE 11/12/2019 EMERALD CONTRERAS SUPERVISOR BLASTING Ot M25.561 PAIN IN RIGHT KNEE 11/15/2019 EMERALD CONTRERAS SUPERVISOR BLASTING Ot M25.561 PAIN IN RIGHT KNEE 11/15/2019 ZULLY CRANE MD Ot E78. 5 HYPERLIPIDEMIA, UNSPECIFIED 11/15/2019 ZULLY CRANE MD Ot I11. 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 2 VENTRICULAR TACHYCARDIA 11/15/2019 ZULLY CRANE MD, Ot I49. 3 VENTRICULAR PREMATURE DEPOLARIZATION 11/15/2019 ZULLY CRANE MD Ot I50. 21 ACUTE SYSTOLIC (CONGESTIVE) HEART FAILUR 11/15/2019 ZULLY CRANE MD Ot I71. 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 09 OTHER CONSTIPATION Procedures Code Description Performed By Per formed On [id number] DI LATION OF 1 COR ART WITH 2 DRUG-ELUT, 11/12/2019 [id number] ME ASURE OF CARDIAC SAMPL PRESSURE, L H 11/12/2019 [id number] FL UOROSCOPY OF MULT COR ART USING L OSM 11/12/2019 [id number] FL UOROSCOPY OF LEFT HEART USING LOW OSMO 11/12/2019 [id number] FL UOROSCOPY OF THORACIC AORTA USING LOW 11/12/2019 Results Test Result Range LIPID PANEL - 10/18/19 07:25 CHOLESTEROL, TOTAL 222 mg/dL <200 HDL CHOLESTEROL 73 mg/dL >50 TRIGLYCERIDES 77 mg/dL <150 LDL-CHOLESTEROL 132 mg/dL (calc) NRG CHOL/HDLC RATIO 3.0 (calc) <5.0 NON HDL CHOLESTEROL 149 mg/dL (calc) <13 0 CMP - 10/18/19 07:25 GLUCOSE 91 mg/dL 65-99 UREA NITROGEN (BUN) 16 mg/dL 7-25 CREATININE 0.91 mg/dL 0.60-0.88 eGFR NON-AFR. IRISH 58 mL/min/1.73m2 > OR = 60 eGFR 67 mL/min/1.73m2 > OR = 60 BUN/CREATININE RATIO 18 (calc) 6-22 SODIUM 141 mmol/L 135-146 POTASSIUM 4.3 mmol/L 3.5-5.3 CHLORIDE 105 mmol/L 98-110 CARBON DIOXIDE 27 mmol/L 20-32 CALCIUM 9.1 mg/dL 8.6-10.4 PROTEIN, TOTAL 6.6 g/dL 6.1-8.1 ALBUMIN 3.8 g/dL 3.6-5.1 GLOBULIN 2.8 g/dL (calc) 1.9-3.7 ALBUMIN/GLOBULIN RATIO 1.4 (calc) 1.0-2. 5 BILIRUBIN, TOTAL 0.5 mg/dL 0.2-1.2 ALKALINE PHOSPHATASE 82 U/L 33-130 AST 20 U/L 10-35 ALT 10 U/L 6-29 Complete blood count (CBC) with automate d white blood cell (WBC) differential - 11/12/19 06:30 Blood leukocytes automated count (number/volume) 6.0 10*3/uL 4.3-11.0 Blood erythrocytes automated count (number/volume) 3.72 10*6/uL 4.35-5.85 Venous blood hemoglobin measurement (mass/volume) 11.4 g/dL 11.5-16.0 Blood hematocrit (volume fraction) 35 % 35-52 Automated erythrocyte mean corpuscular volume 93 [ foz_us] 80-99 Automated erythrocyte mean corpuscular h emoglobin (mass per erythrocyte) 31 pg 25-34 Automated erythrocyte mean corpuscular h emoglobin concentration measurement (mass/volume) 33 g/dL 32-36 Automated erythrocyte distribution width ratio 12. 8 % 10.0- 14.5 Automated blood platelet count (count/volume) 220 10*3/uL 130-400 Automated blood platelet mean volume measurement 8.8 [foz_us] 7.4-10.4 Automated blood neutrophils/100 leukocytes 61 % 42-75 Automated blood lymphocytes/100 leukocytes 29 % 12-44 Blood monocytes/100 leukocytes 8 % 0-12 Automated blood eosinophils/100 leukocytes 2 % 0-10 Automated blood basophils/100 leukocytes 1 % 0-10 Blood neutrophils automated count (number/volume) 3.7 10*3 1.8-7.8 Blood lymphocytes automated count (number/volume) 1.7 10*3 1.0-4.0 Blood monocytes automated count (number/volume) 0. 5 10*3 0.0-1.0 Automated eosinophil count 0.1 10*3/uL 0 .0-0.3 Automated blood basophil count (count/volume) 0.0 10*3/uL 0.0-0.1 Comprehensive metabolic panel - 11/12/19 06:30 Serum or plasma sodium measurement (moles/volume) 140 mmol/L 135-145 Serum or plasma potassium measurement (moles/volume) 3.7 mmol/L 3.6-5.0 Serum or plasma chloride measurement (moles/volume) 109 mmol/L 98-107 Carbon dioxide 22 mmol/L 21-32 Serum or plasma anion gap determination (moles/volume) 9 mmol/L 5-14 Serum or plasma urea nitrogen measurement (mass/volume ) 15 mg/dL 7-18 Serum or plasma creatinine measurement (mass/volume) 0.74 mg/dL 0.60-1.30 Serum or plasma urea nitrogen/creatinine mass ratio 20 NRG Serum or plasma creatinine measurement w ith calculation of estimated glomerular filtration rate > NRG Serum or plasma glucose measurement (mass/volume) 125 mg/dL 70-105 Serum or plasma calcium measurement (mass/volume) 8.3 mg/dL 8.5-10.1 Serum or plasma total bilirubin measurement (mass/volu me) 0.2 mg/dL 0.1-1.0 Serum or plasma alkaline phosphatase scout surement (enzymatic activity/volume) 72 U/L 40-136 Serum or plasma aspartate aminotransfera se measurement (enzymatic activity/volume) 22 U/L 5-34 Serum or plasma alanine aminotransferase measurement (enzymatic activity/volume) 13 U/L 0-55 Serum or plasma protein measurement (mass/volume) 6.4 g/dL 6.4-8.2 Serum or plasma albumin measurement (mass/volume) 3.6 g/dL 3.2-4.5 CALCIUM CORRECTED 8.6 mg/dL 8.5-10.1 Magnesium - 11/12/19 06:30 Magnesium 1.7 mg/dL 1.6-2.4 PT panel in platelet poor plasma by coag ulation assay - 11/12/19 06:30 Prothrombin time (PT) in platelet poor plasma by coagu lation assay 14.1 s 12.2-14.7 INR in platelet poor plasma or blood by coagulation as say 1.0 0.8-1.4 Activated partial thromboplastin time (a PTT) in platelet poor plasma bycoagulation assay - 11/12/19 06:30 Activated partial thromboplastin time (a PTT) in platelet poor plasma bycoagulation assay 33 s 24-35 Serum or plasma troponin i.cardiac measu rement (mass/volume) - 11/12/19 06:30 Serum or plasma troponin i.cardiac measurement (mass/v olume) < ng/mL <0.028 Myoglobin, serum - 11/12/19 06:30 Myoglobin, serum 145.2 ng/mL 10.0-92.0 Methicillin resistant Staphylococcus aur eus (MRSA) screening culture - 11/12/19 08:15 Methicillin resistant Staphylococcus aureus (MRSA) scr eening culture NEG NRG Automated blood complete blood count (he mogram) panel - 11/13/19 03:23 Blood leukocytes automated count (number/volume) 5.9 10*3/uL 4.3-11.0 Blood erythrocytes automated count (number/volume) 3.04 10*6/uL 4.35-5.85 Venous blood hemoglobin measurement (mass/volume) 9.3 g/dL 11.5-16.0 Blood hematocrit (volume fraction) 29 % 35-52 Automated erythrocyte mean corpuscular volume 95 [ foz_us] 80-99 Automated erythrocyte mean corpuscular h emoglobin (mass per erythrocyte) 31 pg 25-34 Automated erythrocyte mean corpuscular h emoglobin concentration measurement (mass/volume) 32 g/dL 32-36 Automated erythrocyte distribution width ratio 12. 8 % 10.0- 14.5 Automated blood platelet count (count/volume) 198 10*3/uL 130-400 Automated blood platelet mean volume measurement 9.1 [foz_us] 7.4-10.4 Whole blood basic metabolic panel - 11/01 03:23 Serum or plasma sodium measurement (moles/volume) 135 mmol/L 135-145 Serum or plasma potassium measurement (moles/volume) 3.8 mmol/L 3.6-5.0 Serum or plasma chloride measurement (moles/volume) 108 mmol/L 98-107 Carbon dioxide 19 mmol/L 21-32 Serum or plasma anion gap determination (moles/volume) 8 mmol/L 5-14 Serum or plasma urea nitrogen measurement (mass/volume ) 13 mg/dL 7-18 Serum or plasma creatinine measurement (mass/volume) 0.73 mg/dL 0.60-1.30 Serum or plasma urea nitrogen/creatinine mass ratio 18 NRG Serum or plasma creatinine measurement w ith calculation of estimated glomerular filtration rate > NRG Serum or plasma glucose measurement (mass/volume) 93 mg/dL 70-105 Serum or plasma calcium measurement (mass/volume) 7.8 mg/dL 8.5-10.1 Lipid 1996 panel - 11/13/19 03:23 Serum or plasma triglyceride measurement (mass/volume) 43 mg/dL <150 Serum or plasma cholesterol measurement (mass/volume) 134 mg/dL < 200 Serum or plasma cholesterol in HDL measurement (mass/v olume) 42 mg/dL 40-60 Cholesterol in LDL [mass/volume] in serum or plasma by direct assay 83 mg/dL 1-129 Serum or plasma cholesterol in VLDL measurement (mass/ volume) 9 mg/dL 5-40 Serum or plasma troponin i.cardiac measu rement (mass/volume) - 11/13/19 03:23 Serum or plasma troponin i.cardiac measurement (mass/v olume) 75.622 ng/mL <0.028 Complete blood count (CBC) with automate d white blood cell (WBC) differential - 11/14/19 03:14 Blood leukocytes automated count (number/volume) 4.9 10*3/uL 4.3-11.0 Blood erythrocytes automated count (number/volume) 2.97 10*6/uL 4.35-5.85 Venous blood hemoglobin measurement (mass/volume) 9.1 g/dL 11.5-16.0 Blood hematocrit (volume fraction) 28 % 35-52 Automated erythrocyte mean corpuscular volume 95 [ foz_us] 80-99 Automated erythrocyte mean corpuscular h emoglobin (mass per erythrocyte) 31 pg 25-34 Automated erythrocyte mean corpuscular h emoglobin concentration measurement (mass/volume) 32 g/dL 32-36 Automated erythrocyte distribution width ratio 12. 8 % 10.0- 14.5 Automated blood platelet count (count/volume) 177 10*3/uL 130-400 Automated blood platelet mean volume measurement 9.2 [foz_us] 7.4-10.4 Automated blood neutrophils/100 leukocytes 42 % 42-75 Automated blood lymphocytes/100 leukocytes 44 % 12-44 Blood monocytes/100 leukocytes 10 % 0-12 Automated blood eosinophils/100 leukocytes 4 % 0-10 Automated blood basophils/100 leukocytes 0 % 0-10 Blood neutrophils automated count (number/volume) 2.1 10*3 1.8-7.8 Blood lymphocytes automated count (number/volume) 2.2 10*3 1.0-4.0 Blood monocytes automated count (number/volume) 0. 5 10*3 0.0-1.0 Automated eosinophil count 0.2 10*3/uL 0 .0-0.3 Automated blood basophil count (count/volume) 0.0 10*3/uL 0.0-0.1 Whole blood basic metabolic panel - 12/02 03:14 Serum or plasma sodium measurement (moles/volume) 138 mmol/L 135-145 Serum or plasma potassium measurement (moles/volume) 3.7 mmol/L 3.6-5.0 Serum or plasma chloride measurement (moles/volume) 111 mmol/L 98-107 Carbon dioxide 20 mmol/L 21-32 Serum or plasma anion gap determination (moles/volume) 7 mmol/L 5-14 Serum or plasma urea nitrogen measurement (mass/volume ) 8 mg/dL 7-18 Serum or plasma creatinine measurement (mass/volume) 0.74 mg/dL 0.60-1.30 Serum or plasma urea nitrogen/creatinine mass ratio 11 NRG Serum or plasma creatinine measurement w ith calculation of estimated glomerular filtration rate > NRG Serum or plasma glucose measurement (mass/volume) 103 mg/dL 70-105 Serum or plasma calcium measurement (mass/volume) 8.1 mg/dL 8.5-10.1 Serum or plasma phosphate measurement (m ass/volume) - 11/14/19 03:14 Serum or plasma phosphate measurement (mass/volume) 2.3 mg/dL 2.3-4.7 Magnesium - 11/14/19 03:14 Magnesium 1.7 mg/dL 1.6-2.4 Complete blood count (CBC) with automate d white blood cell (WBC) differential - 11/15/19 03:30 Blood leukocytes automated count (number/volume) 5.0 10*3/uL 4.3-11.0 Blood erythrocytes automated count (number/volume) 3.18 10*6/uL 4.35-5.85 Venous blood hemoglobin measurement (mass/volume) 9.7 g/dL 11.5-16.0 Blood hematocrit (volume fraction) 30 % 35-52 Automated erythrocyte mean corpuscular volume 94 [ foz_us] 80-99 Automated erythrocyte mean corpuscular h emoglobin (mass per erythrocyte) 31 pg 25-34 Automated erythrocyte mean corpuscular h emoglobin concentration measurement (mass/volume) 33 g/dL 32-36 Automated erythrocyte distribution width ratio 12. 8 % 10.0- 14.5 Automated blood platelet count (count/volume) 185 10*3/uL 130-400 Automated blood platelet mean volume measurement 9.6 [foz_us] 7.4-10.4 Automated blood neutrophils/100 leukocytes 51 % 42-75 Automated blood lymphocytes/100 leukocytes 35 % 12-44 Blood monocytes/100 leukocytes 10 % 0-12 Automated blood eosinophils/100 leukocytes 3 % 0-10 Automated blood basophils/100 leukocytes 0 % 0-10 Blood neutrophils automated count (number/volume) 2.6 10*3 1.8-7.8 Blood lymphocytes automated count (number/volume) 1.8 10*3 1.0-4.0 Blood monocytes automated count (number/volume) 0. 5 10*3 0.0-1.0 Automated eosinophil count 0.2 10*3/uL 0 .0-0.3 Automated blood basophil count (count/volume) 0.0 10*3/uL 0.0-0.1 Whole blood basic metabolic panel - 12/30 03:30 Serum or plasma sodium measurement (moles/volume) 140 mmol/L 135-145 Serum or plasma potassium measurement (moles/volume) 3.7 mmol/L 3.6-5.0 Serum or plasma chloride measurement (moles/volume) 109 mmol/L 98-107 Carbon dioxide 23 mmol/L 21-32 Serum or plasma anion gap determination (moles/volume) 8 mmol/L 5-14 Serum or plasma urea nitrogen measurement (mass/volume ) 7 mg/dL 7-18 Serum or plasma creatinine measurement (mass/volume) 0.69 mg/dL 0.60-1.30 Serum or plasma urea nitrogen/creatinine mass ratio 10 NRG Serum or plasma creatinine measurement w ith calculation of estimated glomerular filtration rate > NRG Serum or plasma glucose measurement (mass/volume) 91 mg/dL 70-105 Serum or plasma calcium measurement (mass/volume) 8.2 mg/dL 8.5-10.1 Serum or plasma phosphate measurement (m ass/volume) - 11/15/19 03:30 Serum or plasma phosphate measurement (mass/volume) 2.4 mg/dL 2.3-4.7 Magnesium - 11/15/19 03:30 Magnesium 1.8 mg/dL 1.6-2.4 PT panel in platelet poor plasma by coag ulation assay - 12/27/19 17:34 Prothrombin time (PT) in platelet poor plasma by coagu lation assay 13.6 s 12.2-14.7 INR in platelet poor plasma or blood by coagulation as say 1.0 0.8-1.4 Activated partial thromboplastin time (a PTT) in platelet poor plasma bycoagulation assay - 12/27/19 17:34 Activated partial thromboplastin time (a PTT) in platelet poor plasma bycoagulation assay 37 s 24-35 Complete blood count (CBC) with automate d white blood cell (WBC) differential - 12/27/19 17:34 Blood leukocytes automated count (number/volume) 6.0 10*3/uL 4.3-11.0 Blood erythrocytes automated count (number/volume) 3.70 10*6/uL 4.35-5.85 Venous blood hemoglobin measurement (mass/volume) 11.5 g/dL 11.5-16.0 Blood hematocrit (volume fraction) 36 % 35-52 Automated erythrocyte mean corpuscular volume 97 [ foz_us] 80-99 Automated erythrocyte mean corpuscular h emoglobin (mass per erythrocyte) 31 pg 25-34 Automated erythrocyte mean corpuscular h emoglobin concentration measurement (mass/volume) 32 g/dL 32-36 Automated erythrocyte distribution width ratio 14. 0 % 10.0- 14.5 Automated blood platelet count (count/volume) 270 10*3/uL 130-400 Automated blood platelet mean volume measurement 9.1 [foz_us] 7.4-10.4 Automated blood neutrophils/100 leukocytes 51 % 42-75 Automated blood lymphocytes/100 leukocytes 32 % 12-44 Blood monocytes/100 leukocytes 9 % 0-12 Automated blood eosinophils/100 leukocytes 6 % 0-10 Automated blood basophils/100 leukocytes 1 % 0-10 Blood neutrophils automated count (number/volume) 3.1 10*3 1.8-7.8 Blood lymphocytes automated count (number/volume) 1.9 10*3 1.0-4.0 Blood monocytes automated count (number/volume) 0. 6 10*3 0.0-1.0 Automated eosinophil count 0.4 10*3/uL 0 .0-0.3 Automated blood basophil count (count/volume) 0.1 10*3/uL 0.0-0.1 TROPONIN I FS - 12/27/19 17:34 TROPONIN I FS < 0.30 <0.30 PROBNP FS - 12/27/19 17:34 PROBNP FS 2065.0 pg/mL <75.0 Comprehensive metabolic panel - 12/27/19 17:34 Serum or plasma sodium measurement (moles/volume) 139 mmol/L 135-145 Serum or plasma potassium measurement (moles/volume) 4.1 mmol/L 3.6-5.0 Serum or plasma chloride measurement (moles/volume) 101 mmol/L 98-107 Carbon dioxide 27 mmol/L 21-32 Serum or plasma anion gap determination (moles/volume) 11 mmol/L 5-14 Serum or plasma urea nitrogen measurement (mass/volume ) 24 mg/dL 7-18 Serum or plasma creatinine measurement (mass/volume) 1.26 mg/dL 0.60-1.30 Serum or plasma urea nitrogen/creatinine mass ratio 19 NRG Serum or plasma creatinine measurement w ith calculation of estimated glomerular filtration rate 40 NRG Serum or plasma glucose measurement (mass/volume) 88 mg/dL 70-105 Serum or plasma calcium measurement (mass/volume) 9.3 mg/dL 8.5-10.1 Serum or plasma total bilirubin measurement (mass/volu me) 0.2 mg/dL 0.1-1.0 Serum or plasma alkaline phosphatase scout surement (enzymatic activity/volume) 107 U/L 40-136 Serum or plasma aspartate aminotransfera se measurement (enzymatic activity/volume) 27 U/L 5-34 Serum or plasma alanine aminotransferase measurement (enzymatic activity/volume) 20 U/L 0-55 Serum or plasma protein measurement (mass/volume) 7.2 g/dL 6.4-8.2 Serum or plasma albumin measurement (mass/volume) 3.9 g/dL 3.2-4.5 CALCIUM CORRECTED 9.4 mg/dL 8.5-10.1 Magnesium - 12/27/19 17:34 Magnesium 2.0 mg/dL 1.6-2.4 Myoglobin, serum - 12/27/19 17:34 Myoglobin, serum 33.1 ng/mL 10.0-92.0 Encounters ACCT No. Visit Date/Time Discharge Status Pt. Type Provider Facility Loc./Unit Complaint [id number] 10/18/2019 07:00:00 10/18/2019 23:59: 59 CLS Outpatient [facility] [id number] 10/18/2019 07:00:00 Document Registration [id number] 12/27/2019 17:10:00 020 18:48:00 DIS Emergency YURY MCCLURE, DAQUAN Sandoval [facility] ER FS BACK PAIN [id number] 11/12/2019 06:34:00 020 15:20:00 DIS Inpatient ROSA MARIA MCCLURE, ZULLY Avelar [facility] ICU STEMI [id number] 01/26/2019 10:17:00 019 23:59:59 CLS Outpatient EMERALD CONTRERAS APRN [facility] RAD FS M25.561
== END 2019-12-27 18:48 | disposition home or self-care (01) ==
LOC: EDUNIT# 17:09 → ER FS 17:10
DX: R07.9 Chest pain, unspecified (principal); R00.1 Bradycardia, unspecified; T50.905A Adverse effect of unspecified drugs, medicaments and biological substances, initial encounter; I25.2 Old myocardial infarction; Z95.5 Presence of coronary angioplasty implant and graft; Z79.82 Long term (current) use of aspirin; Z79.02 Long term (current) use of antithrombotics/antiplatelets
CPT/HCPCS: 36415; 71045; 80053; 83735; 83874; 83880; 84484; 85025; 85610; 85730; 93005; 93041

== ENCOUNTER 2019-12-30 10:08 | Emergency (ER) | payer MEDICARE ==
[~2019-12-30] VITALS: Ht 157.4 cm; Wt 66.1 kg
--- NOTE | 2019-12-30 10:32 | ED Chest Pain ---
General Chief Complaint: Chest Pain Stated Complaint: CHEST PAIN Source: patient Exam Limitations: no limitations History of Present Illness Date Seen by Provider: Dec 30, 2019 Time Seen by Provider: 10:20 Initial Comments Patient presents to the ER via private vehicle with complaint of intermittent chest pain over the past week. Chest pain occurring daily, primarily her right chest and upper back and shoulder. Pain is migratory with no exacerbating or remitting factors. No associated diaphoresis, abdominal pain, nausea or vomiting. Denies cough, fever or chills. Recent history of present illness, patient had an acute inferior [place] the end of October with a right coronary blockage and had 2 stents placed at via [facility]. Patient was started on multiple medications including: Amiodarone, Plavix, losartan, atorvastatin and metoprolol. On arrival patient states her chest pain has improved and nearly resolved. Noted heart rate in the 50s on the monitor. Allergies and Home Medications Allergies Coded Allergies: No Known Drug Allergies (Unverified , 12/02/11) Home Medications Amiodarone HCl 200 Mg Tablet, 400 MG PO BID Take 2 tablets twice a day for one week then Take one tablet twice daily Prescribed by: ZULLY WILSON on 11/15/191415 Aspirin 81 Mg Tablet.dr, 81 MG PO DAILY Prescribed by: ZULLY WILSON on 11/15/19 141 Atorvastatin Calcium 80 Mg Tablet, 80 MG PO HS Prescribed by: ZULLY WILSON on 11/15/19 141 Clopidogrel Bisulfate 75 Mg Tablet, 75 MG PO DAILY Prescribed by: ZULLY WILSON on 11/15/19 141 Docusate Sodium 100 Mg Capsule, 100 MG PO BID, (Reported) Loratadine 10 Mg Tablet, 10 MG PO DAILY, (Reported) Losartan Potassium 25 Mg Tablet, 25 MG PO DAILY Prescribed by: ZULLY WILSON on 11/15/19 141 Metoprolol Tartrate 25 Mg Tablet, 12.5 MG PO BID Prescribed by: ZULLY WILSON on 11/15/19 141 Multivitamin with Minerals 1 Each Tablet, 1 TAB PO DAILY, (Reported) Sapello 3 Polyunsat Fatty Acids 1,000 Mg Cap, 1,000 MG PO BID, (Reported) Vitamin E Acetate 400 Unit Capsule, 400 UNIT PO DAILY, (Reported) Patient Home Medication List Home Medication List Reviewed: Yes Review of Systems Review of Systems Constitutional: no symptoms reported, see HPI; No fever, No malaise, No weakness Respiratory: Denies Cough, Denies Shortness of Air Cardiovascular: See HPI, Chest Pain; Denies Edema, Denies Irregular Heart Rate, Denies Lightheadedness, Denies Palpitations, Denies Syncope Gastrointestinal: Denies Abdominal Pain, Denies Nausea, Denies Poor Appetite, Denies Vomiting Musculoskeletal: back pain; No joint pain, No muscle pain, No muscle stiffness Skin: No lesions, No rash Hematologic/Lymphatic: Denies Easy Bleeding, Denies Easy Bruising Past Bosvcye-Tsltjk-Kbetvd Hx Past Med/Social Hx: Reviewed Nursing Past Med/Soc Hx Patient Social History 2nd Hand Smoke Exposure: No Recent Foreign Travel: No Contact w/Someone Who Travel: No Immunizations Up To Date Date of Influenza Vaccine: Jul 13, 2011 Past Medical History Surgeries: Yes (sinus) Coronary Stent Respiratory: No Cardiac: Yes Heart Attack Neurological: No Reproductive Disorders: No Genitourinary: No Gastrointestinal: No Musculoskeletal: Yes (ARTHRITIS) Endocrine: No HEENT: No Cancer: No Psychosocial: No Integumentary: No Blood Disorders: No Family Medical History No Pertinent Family Hx Physical Exam Vital Signs Vital Signs - First Documented Capillary Refill : Less Than 3 Seconds Height, Weight, BMI Height: '" Weight: lbs. oz. kg; 28.00 BMI Method: General Appearance: No Apparent Distress, WD/WN HEENT: PERRL/EOMI, Normal ENT Inspection Neck: Full Range of Motion, Non Tender, Supple Respiratory: Lungs Clear, Normal Breath Sounds Cardiovascular: No Edema, No Gallop, No JVD, Bradycardia Gastrointestinal: Non Tender, Soft; No Distended, No Guarding Extremity: Normal Capillary Refill, Normal Inspection, Normal Range of Motion, Non Tender Neurologic/Psychiatric: Alert, Oriented x3, No Motor/Sensory Deficits Skin: Normal Color, Warm/Dry Progress/Results/Core Measures Results/Orders Lab Results Laboratory Tests Test 12/30/19 10:15 Range/Units White Blood Count 5.6 4.3-11.0 10^3/uL Red Blood Count 4.02 L 4.35-5.85 10^6/uL Hemoglobin 12.3 11.5-16.0 G/DL Hematocrit 38 35-52 % Mean Corpuscular Volume 96 80-99 FL Mean Corpuscular Hemoglobin 31 25-34 PG Mean Corpuscular Hemoglobin Concent 32 32-36 G/DL Red Cell Distribution Width 13.8 10.0-14.5 % Platelet Count 272 130-400 10^3/uL Mean Platelet Volume 9.0 7.4-10.4 FL Neutrophils (%) (Auto) 52 42-75 % Lymphocytes (%) (Auto) 35 12-44 % Monocytes (%) (Auto) 10 0-12 % Eosinophils (%) (Auto) 3 0-10 % Basophils (%) (Auto) 1 0-10 % Neutrophils # (Auto) 2.9 1.8-7.8 X 10^3 Lymphocytes # (Auto) 1.9 1.0-4.0 X 10^3 Monocytes # (Auto) 0.5 0.0-1.0 X 10^3 Eosinophils # (Auto) 0.2 0.0-0.3 10^3/uL Basophils # (Auto) 0.1 0.0-0.1 10^3/uL Sodium Level 139 135-145 MMOL/L Potassium Level 4.3 3.6-5.0 MMOL/L Chloride Level 100 98-107 MMOL/L Carbon Dioxide Level 27 21-32 MMOL/L Anion Gap 12 5-14 MMOL/L Blood Urea Nitrogen 16 7-18 MG/DL Creatinine 0.96 0.60-1.30 MG/DL Estimat Glomerular Filtration Rate 55 BUN/Creatinine Ratio 17 Glucose Level 98 70-105 MG/DL Calcium Level 9.1 8.5-10.1 MG/DL Corrected Calcium 9.1 8.5-10.1 MG/DL Total Bilirubin 0.4 0.1-1.0 MG/DL Aspartate Amino Transf (AST/SGOT) 29 5-34 U/L Alanine Aminotransferase (ALT/SGPT) 19 0-55 U/L Alkaline Phosphatase 99 40-136 U/L Troponin I < 0.30 <0.30 NG/ML Total Protein 7.4 6.4-8.2 GM/DL Albumin 4.0 3.2-4.5 GM/DL My Orders Orders - ROVENSTREINALDO REID DO Ed Iv/Invasive Line Start (12/30/19 10:18) Chest 1 View Ap/Pa Only (12/30/19 10:18) Ekg Tracing (12/30/19 10:18) Cbc With Automated Diff (12/30/19 10:18) Comprehensive Metabolic Panel (12/30/19 10:18) Troponin I Fs (12/30/19 10:18) Vital Signs/I&O 12/30/19 12/30/19 12/30/19 10:08 10:08 11:22 Temp 36.2 36.3 Pulse 55 50 Resp 15 14 B/P (MAP) 175/62 (99) 134/105 Pulse Ox 95 96 O2 Delivery Room Air Room Air Room Air Initial ECG Impression Time: 10:20 Initial ECG Rate: 55 Initial ECG Rhythm: S.Brant Initial ECG Intervals: Normal Initial ECG Impression: Sinus Bradycardia Departure Communication (Admissions) Time/Spoke to Consulting Phy: 11:[address] Wilson, discussed HPI and eval in ER today w no significant abnl. He advised pt to f/u w him in the Clinic. Pt has not been taking her Metoprolol because she was told not to take it if her HR is lower than 60 (for about a week). Today her HR was 66, so she took a 12.5mg Metoprolol. Pt has been active, walking and doing normal activity of daily living without difficulty. Her CP is unrelated to activity. Impression Primary Impression: Chest pain Qualified Codes: R07.9 - Chest pain, unspecified Additional Impression: Bradycardia Disposition: 01 HOME, SELF-CARE Condition: Stable Departure-Patient Inst. Decision time for Depature: 11:10 Referrals: [facility]/ (PCP) Primary Care Physician EMERALD CONTRERAS APRN (Family) Primary Care Physician Patient Instructions: Bradycardia (DC), Chest Pain (DC) Add. Discharge Instructions: Call Dr Wilson's office today to schedule a follow-up appointment. All discharge instructions reviewed with patient and/or family. Voiced understanding. RIENALDO HO DO Dec 30, 2019 10:32
--- NOTE | 2019-12-30 10:35 | Diagnostic Imaging Report ---
INDICATION: Chest pain. AP view of the chest is obtained with comparison made study of 12/27/2019 FINDINGS: Overall heart size is within normal limits. There may be aortic ectasia, however this is unchanged. No pneumothorax or consolidation is identified. IMPRESSION: No acute abnormality or significant change is detected. Dictated by: Dictated on workstation # [id number]
[2019-12-30 10:39] LABS: HEMATOCRIT 38 % (35-52); HEMOGLOBIN 12.3 G/DL (11.5-16.0); MEAN CORPUSCULAR HEMOGLOBIN 31 PG (25-34); MEAN CORPUSCULAR HGB CONC 32 G/DL (32-36); MEAN CORPUSCULAR VOLUME 96 FL (80-99); PLATELET COUNT 272 10^3/uL (130-400); RED CELL DISTRIBUTION WIDTH 13.8 % (10.0-14.5); WHITE BLOOD COUNT 5.6 10^3/uL (4.3-11.0)
--- OUTSIDE RECORDS SUMMARY | 2019-12-30 10:39 | XMS REPORT | Continuity of Care Document ---
Author Organization Unknown Address Unknown Phone Unavailable Allergies Active Description Code Type Severity Reaction Onset Reported/Identified Relationship to Patient Clinical Status Yes No Known Drug Allergies [id number] Drug Allergy Unknown N/A 12/02/2011 Medications There is no data. Problems Date Dx Coded Attending Type Code Diagnosis Diagnosed By 01/26/2019 EMERALD CONTRERAS BAG SORTER Ot M25.561 PAIN IN RIGHT KNEE 01/28/2019 EMERALD CONTRERAS BAG SORTER Ot M25.561 PAIN IN RIGHT KNEE 01/28/2019 EMERALD CONTRERAS BAG SORTER Ot M25.561 PAIN IN RIGHT KNEE 01/28/2019 EMERALD CONTRERAS BAG SORTER Ot M25.561 PAIN IN RIGHT KNEE 11/12/2019 EMERALD CONTRERAS BAG SORTER Ot M25.561 PAIN IN RIGHT KNEE 11/12/2019 EMERALD CONTRERAS BAG SORTER Ot M25.561 PAIN IN RIGHT KNEE 11/15/2019 EMERALD CONTRERAS BAG SORTER Ot M25.561 PAIN IN RIGHT KNEE 11/15/2019 ZULLY CRANE MD Ot E78. 5 HYPERLIPIDEMIA, UNSPECIFIED 11/15/2019 ZULLY CRANE MD Ot I11. 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 10 ATHSCL HEART DISEASE OF [place] CORONARY 11/15/2019 ZULLY CRANE MD Ot I25.119 ATHSCL HEART DISEASE OF [place] COR ART W 11/15/2019 ZULLY CRANE MD, [...] Code Description Performed By Per formed On 557165F DI LATION OF 1 COR ART WITH 2 DRUG-ELUT, 11/12/2019 [id number] ME ASURE OF CARDIAC SAMPL PRESSURE, L H 11/12/2019 [id number] [place] UOROSCOPY OF MULT COR ART USING L OSM 11/12/2019 [id number] [place] UOROSCOPY OF LEFT HEART USING LOW OSMO 11/12/2019 [id number] [place] UOROSCOPY OF THORACIC AORTA USING LOW [...] 7-25 CREATININE 0.91 mg/dL 0.60-0.88 eGFR NON-AFR. FAROESE 58 mL/min/1.73m2 > OR = 60 eGFR [...] Status Pt. Type Provider Facility Loc./Unit Complaint [id number] 10/18/2019 07:00:00 10/18/2019 23:59: 59 CLS Outpatient [facility] [id number] 10/18/2019 07:00:00 Document Registration [id number] 12/27/2019 17:10:00 020 18:48:00 DIS Emergency YURY MCCLURE, DAQUAN Sandoval [facility] ER FS BACK PAIN [id number] 11/12/2019 06:34:00 020 15:20:00 DIS Inpatient ROSA MARIA MCCLURE, ZULLY Avelar [facility] ICU STEMI [id number] 01/26/2019 10:17:00 019 23:59:59 CLS Outpatient EMERALD CONTRERAS APRN [facility] RAD FS M25.561
[2019-12-30 10:40] LABS: BASOPHILS # (AUTO) 0.1 10^3/uL (0.0-0.1); BASOPHILS % (AUTO) 1 % (0-10); EOSINOPHILS # (AUTO) 0.2 10^3/uL (0.0-0.3); EOSINOPHILS % (AUTO) 3 % (0-10); LYMPHOCYTES # (AUTO) 1.9 X 10^3 (1.0-4.0); LYMPHOCYTES % (AUTO) 35 % (12-44); MONOCYTES # (AUTO) 0.5 X 10^3 (0.0-1.0); MONOCYTES % (AUTO) 10 % (0-12); NEUTROPHILS # (AUTO) 2.9 X 10^3 (1.8-7.8); NEUTROPHILS % (AUTO) 52 % (42-75)
[2019-12-30 10:54] LABS: ALANINE AMINOTRANSFERASE 19 U/L (0-55); ALKALINE PHOSPHATASE 99 U/L (40-136); BILIRUBIN,TOTAL 0.4 MG/DL (0.1-1.0); BUN/CREATININE RATIO 17; CALCIUM 9.1 MG/DL (8.5-10.1); CARBON DIOXIDE 27 MMOL/L (21-32); CHLORIDE 100 MMOL/L (98-107); CREATININE SERUM 0.96 MG/DL (0.60-1.30); GFR ESTIMATED 55; GLUCOSE 98 MG/DL (70-105); POTASSIUM 4.3 MMOL/L (3.6-5.0); SODIUM 139 MMOL/L (135-145); TOTAL PROTEIN 7.4 GM/DL (6.4-8.2)
[2019-12-30 11:22] VITALS: BP 134/105
== END 2019-12-30 11:22 | disposition home or self-care (01) ==
LOC: EDUNIT# 10:08 → ER FS 10:11
DX: R07.89 Other chest pain (principal); R00.1 Bradycardia, unspecified; I25.2 Old myocardial infarction; Z95.5 Presence of coronary angioplasty implant and graft; Z79.02 Long term (current) use of antithrombotics/antiplatelets; Z79.82 Long term (current) use of aspirin
CPT/HCPCS: 36415; 71045; 80053; 84484; 85025

== ENCOUNTER → 2020-05-16 | Outpatient (CLI) | payer MEDICARE ==
--- NOTE | 2020-05-16 09:54 | Diagnostic Imaging Report ---
INDICATION: History of left wrist fracture. COMPARISON: No films for comparison. EXAMINATION: Left wrist, 3 views. FINDINGS: A fiberglass cast is in place. A distal radial shaft fracture through the metaphysis is present. The alignment is good. There does appear to be some developing callus. The radiocarpal joint is in good alignment with moderate degenerative change. The carpal bones show no dislocation. IMPRESSION: Healing nondisplaced fracture of the distal left radius. This does not appear to involve the articulating surface. Dictated by: Dictated on workstation # [id number]
== END ==
LOC: RAD FS 08:51
PROVIDERS: ATTEND Nurse Practitioner
DX: S52.532D Colles' fracture of left radius, subsequent encounter for closed fracture with routine healing (principal)
CPT/HCPCS: 73110

== ENCOUNTER → 2020-05-30 | Outpatient (CLI) | payer MEDICARE ==
--- NOTE | 2020-05-30 10:38 | Diagnostic Imaging Report ---
INDICATION: Left wrist pain. TECHNIQUE/COMPARISON: AP and lateral views of the left wrist were obtained and compared to 05/16/2020. FINDINGS: The overlying cast has been removed. There is no change in the alignment of the partially healed fracture of the distal radius with underlying sclerotic changes. There is underlying degenerative change of the radiocarpal joint, radioulnar joint, and 1st carpometacarpal joint. IMPRESSION: Stable alignment of the distal radial fracture with underlying sclerosis. Stable degenerative findings of the wrist. Dictated by: Dictated on workstation # [id number]
== END ==
LOC: RAD FS 09:27
PROVIDERS: ATTEND Nurse Practitioner
DX: S52.532D Colles' fracture of left radius, subsequent encounter for closed fracture with routine healing (principal)
CPT/HCPCS: 73100

== ENCOUNTER → 2020-06-20 | Outpatient (CLI) | payer MEDICARE ==
[~2020-06-20] MED LIST changes: +ASPI-1238 PO; -ASPI-983 PO
--- NOTE | 2020-06-20 10:12 | Diagnostic Imaging Report ---
CLINICAL INDICATION: Followup for fracture of the left wrist. EXAM: X-ray of the left wrist, 2 views. COMPARISON: X-ray of the left wrist dated 05/30/2020. FINDINGS: There is slight progression of sclerosis involving the distal radial metaphyseal fracture which is otherwise in stable alignment and position. There is stable 4 mm of positive ulnar variance and slight dorsal angulation of the radius fracture region. Stable severe degenerative changes with spurring and joint space narrowing of the 1st CMC joint and triscaphe region. The remainder of this exam shows no significant interval change compared to the prior study of comparison. IMPRESSION: Slight progression of sclerosis with stable positioning of the distal radial metaphyseal fracture. There is stable positive ulnar variance. Dictated by: Dictated on workstation # [id number]
== END ==
LOC: RAD FS 09:24
PROVIDERS: ATTEND Nurse Practitioner
DX: S52.532D Colles' fracture of left radius, subsequent encounter for closed fracture with routine healing (principal); M25.832 Other specified joint disorders, left wrist; X58.XXXD Exposure to other specified factors, subsequent encounter
CPT/HCPCS: 73100

== ENCOUNTER → 2020-07-04 | Outpatient (CLI) | payer MEDICARE ==
--- NOTE | 2020-07-04 12:58 | Diagnostic Imaging Report ---
INDICATION: Left knee pain. COMPARISON: None available. TECHNIQUE: Three views of the left knee were obtained. FINDINGS: Joint space is preserved. No osteophyte formation is noted. No fracture or concerning focal osseous lesion. No knee joint effusion or mineralized intra-articular bodies. IMPRESSION: Normal left knee radiographs. Dictated by: Dictated on workstation # [id number]
== END ==
LOC: RAD FS 10:18
PROVIDERS: ATTEND Nurse Practitioner
DX: M70.42 Prepatellar bursitis, left knee (principal)
CPT/HCPCS: 73562

== ENCOUNTER → 2020-11-08 | Outpatient (CLI) | payer MEDICARE ==
[~2020-11-08] MED LIST changes: -AMIO200T4 PO; +AMIO200T6 PO; +CATHETER FLUSH 10 ML SYR IV PRN; +HOLD METFORMIN - RECEIVED CONTRAST 20 ML VIAL IV SCH; +IOHEXOL 350 MG/ML 150 ML (OMNIPAQUE 350) VIAL IV ONE; +NS 100 ML (IVPB) BAG IV ONE
--- NOTE | 2020-11-08 10:33 | Diagnostic Imaging Report ---
EXAMINATION: CT angiography of the chest. TECHNIQUE: Contrast enhanced thin section helical images were obtained through the chest with intravenous contrast timed for the optimal opacification of the arterial structures per CTA protocol. Post-processing, reconstructions and interpretation of angiographic images of the vessels was performed. 3D MIP reconstructions were performed and reviewed. All CT scans use one or more of the following dose optimizing techniques: automated exposure control, MA and/or KvP adjustment based on a patient size and exam type, or iterative reconstruction. HISTORY: Aortic aneurysm. COMPARISON: 11/15/2019. FINDINGS: Examination timing is for opacification of the pulmonary arteries. No pulmonary embolism is seen. There is an ascending aortic aneurysm. The ascending aorta measures 4.4 x 4.2 cm, unchanged. The distal large measures 4.0 x 4.0 cm, unchanged. Coronary artery stents are present. There is unchanged septal line thickening peripherally. No pleural effusion. No pneumothorax. No suspicious nodules. There is no axillary or supraclavicular lymphadenopathy. There is no mediastinal lymphadenopathy. Heart size is normal. There are mild coronary artery calcifications. No pericardial effusion. Limited views of the upper abdomen are unremarkable. There are no suspicious osseous lesions. IMPRESSION: 1. No pulmonary embolism. Stable aortic aneurysm involving the ascending aorta, arch and descending thoracic aorta. Dictated by: Dictated on workstation # [id number]
== END ==
LOC: RAD FS 07:59
PROVIDERS: ATTEND Internal Medicine Cardiovascular Disease
DX: I71.2 Thoracic aortic aneurysm, without rupture (principal)
CPT/HCPCS: 36415; 71275; 82565; 84520

== ENCOUNTER → 2020-11-13 | Outpatient (CLI) | payer MEDICARE ==
[~2020-11-13] MED LIST changes: +IOHEXOL 350 MG/ML 100 ML (OMNIPAQUE 350) VIAL IV ONE; -IOHEXOL 350 MG/ML 150 ML (OMNIPAQUE 350) VIAL IV ONE
--- NOTE | 2020-11-13 17:52 | Diagnostic Imaging Report ---
PROCEDURE: CT angiography of the head and CT angiography of the neck with and without contrast. TECHNIQUE: Contiguous noncontrast images were obtained from the skull base through the vertex. After intravenous contrast administration, helical CT angiography of the neck was performed. Source data was reformatted into 3D MIP projections. Delayed post contrast acquisition was also obtained. Auto Exposure Controls were utilized during the CT exam to meet ALARA standards for radiation dose reduction. INDICATION: Generalized weakness. Stroke like symptoms. COMPARISON: CTA chest on 11/08/2020. FINDINGS: CTA Neck: The visualized portions of the aortic arch demonstrate stable aneurysmal dilation. There is conventional branching pattern of the great vessels of the aorta. The brachiocephalic artery is normal in course and caliber. The right and left common carotid origins are unremarkable. The origin of the left subclavian artery is patent. The common carotid arteries and internal carotid arteries demonstrate a tortuous course. There is calcified atherosclerotic plaque in the bilateral carotid bulbs and proximal internal carotid arteries without flow-limiting stenosis. No evidence of dissection in the carotid systems. The external carotid arteries are patent and unremarkable. The right vertebral artery is dominant. The origin of the right vertebral artery is seen and is unremarkable. The origin of the left vertebral artery is seen and is unremarkable. There is no focal stenosis seen within the neck. There is no dissection. The vertebral arteries are well visualized to up to the level of the basilar artery. The osseous structures of the cervical spine are unremarkable. Nodule in the left lobe of the thyroid measures 0.8 cm. Included views through the lung apices demonstrate no focal consolidation. CTA brain: Atherosclerotic plaque is seen in the bob of the bilateral terminal internal carotid arteries without significant stenosis. No stenosis is seen in the bilateral anterior, middle, and posterior cerebral arteries. origin of the left [employer]CH[employer]ICIAN is noted. No evidence of aneurysm the elem of [place]. In the posterior circulation, both of the vertebral arteries demonstrate normal opacification. The vertebral arteries are codominant. Both the right and left PICA arteries are identified. The basilar artery is normal in course and caliber. The terminal branch vessels including the superior cerebellar arteries unremarkable. CT head: No large acute territorial ischemia, mass, or hemorrhage. No midline shift or mass effect. Decreased attenuation is seen in the periventricular and subcortical white matter. The ventricles and cortical sulci are prominent. The basilar cisterns are patent and unremarkable. The calvarium is intact. Mild mucosal thickening is seen in the paranasal sinuses. The mastoid air cells are clear. IMPRESSION: 1. No stenosis or aneurysm in the elem of [place]. 2. No stenosis or dissection the bilateral carotid and vertebral arteries. 3. No large acute territorial ischemia, mass, or hemorrhage. No midline shift. If symptoms persist, consider MRI of the brain to further evaluate. 4. 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 5. Stable aneurysmal dilation of the included aorta compared to the exam 4 days ago. Dictated by: Dictated on workstation # [id number]
== END ==
LOC: RAD FS 15:43
PROVIDERS: ATTEND Nurse Practitioner Family
DX: G31.9 Degenerative disease of nervous system, unspecified (principal); I71.9 Aortic aneurysm of unspecified site, without rupture; R00.1 Bradycardia, unspecified; Z87.898 Personal history of other specified conditions
CPT/HCPCS: 70496; 70498

== ENCOUNTER → 2020-12-26 | Outpatient (CLI) | payer MEDICARE ==
[~2020-12-26] MED LIST changes: -CATHETER FLUSH 10 ML SYR IV PRN; -HOLD METFORMIN - RECEIVED CONTRAST 20 ML VIAL IV SCH; -IOHEXOL 350 MG/ML 100 ML (OMNIPAQUE 350) VIAL IV ONE; -NS 100 ML (IVPB) BAG IV ONE
--- NOTE | 2020-12-26 11:21 | Diagnostic Imaging Report ---
PROCEDURE: CT sinuses without contrast TECHNIQUE: Multiple contiguous axial images were obtained through the sinuses without the use of intravenous contrast. Coronal and sagittal reformations were then performed. Auto Exposure Controls were utilized during the CT exam to meet ALARA standards for radiation dose reduction. INDICATION: Sinusitis. There are no prior CT sinus examinations available for comparison. FINDINGS: The CTA head and neck exam performed on 11/13/2020 did note postsurgical changes involving both maxillary antra consistent with a prior bilateral maxillary antrostomy procedure. There also appear to be mucosal thickening of the ethmoid sinuses and the right sphenoid sinus. The sinuses are otherwise generally clear. On this exam, the postsurgical changes involving the maxillary antra are again evident and no different. The maxillary sinuses are generally clear. There is still mucosal thickening of the ethmoid and right sphenoid sinus. The frontal sinuses are generally clear. The nasal septum is slightly deviated to the right. The bone windows show no evidence for fracture or for destructive lesion. The orbits are symmetrical and within normal limits. The intracranial contents where visualized are unremarkable for an acute abnormality. IMPRESSION: 1. There is persistent mild mucosal thickening of the ethmoid and right sphenoid sinuses. The sinuses are otherwise generally clear. 2. The postsurgical changes involving the maxillary antra seen previously appears stable. Dictated by: Dictated on workstation # [id number]
== END ==
LOC: RAD FS 10:08
PROVIDERS: ATTEND Plastic Surgery Plastic Surgery Within the Head and Neck
DX: J32.9 Chronic sinusitis, unspecified (principal); J31.0 Chronic rhinitis
CPT/HCPCS: 70486

== ENCOUNTER 2021-05-29 18:52 | Emergency (ER) | payer MEDICARE ==
--- NOTE | 2021-05-29 19:07 | ED General ---
General Stated Complaint: NAUSEA Source of Information: Patient Exam Limitations: No Limitations History of Present Illness Date Seen by Provider: May 29, 2021 Time Seen by Provider: 19:07 Initial Comments Patient is a 86-year-old female with a history of CAD NSTEMI who presents with nausea generalized weakness and chills. Symptom onset today. Patient was evaluated in this emergency department 2 days ago and diagnosed with urinary tract infection. Patient was taken 3 doses of Bactrim and increased fluid intake. Denies fever, vomiting, sweats, flank pain. Denies urinary frequency urgency or dysuria. Denies headache chest pain palpitations, shortness of breath. No other acute symptoms or complaints. Timing/Duration: 1-3 Hours Severity: Mild Modifying Factors: improves with Other Associated Systoms: Fever/Chills, Nausea/Vomiting, Weakness Allergies and Home Medications Allergies Coded Allergies: No Known Drug Allergies (Unverified , 12/02/11) Home Medications Amiodarone HCl 200 Mg Tablet, 400 MG PO BID Take 2 tablets twice a day for one week then Take one tablet twice daily Prescribed by: ZULLY CRANE on 11/15/191415 Aspirin 81 Mg Tablet.dr, 81 MG PO DAILY Prescribed by: ZULLY CRANE on 11/15/19 141 Atorvastatin Calcium 80 Mg Tablet, 80 MG PO HS Prescribed by: ZULLY CRANE on 11/15/191415 Clopidogrel Bisulfate 75 Mg Tablet, 75 MG PO DAILY Prescribed by: ZULLY CRANE on 11/15/191415 Docusate Sodium 100 Mg Capsule, 100 MG PO BID, (Reported) Loratadine 10 Mg Tablet, 10 MG PO DAILY, (Reported) Losartan Potassium 25 Mg Tablet, 25 MG PO DAILY Prescribed by: ZULLY CRANE on 11/15/19 141 Metoprolol Tartrate 25 Mg Tablet, 12.5 MG PO BID Prescribed by: ZULLY CRANE on 11/15/19 141 Multivitamin with Minerals 1 Each Tablet, 1 TAB PO DAILY, (Reported) [place] 3 Polyunsat Fatty Acids 1,000 Mg Cap, 1,000 MG PO BID, (Reported) Vitamin E Acetate 400 Unit Capsule, 400 UNIT PO DAILY, (Reported) Patient Home Medication List Home Medication List Reviewed: Yes Review of Systems Review of Systems Constitutional: see HPI EENTM: see HPI Respiratory: see HPI Gastrointestinal: see HPI Genitourinary: see HPI Musculoskeletal: see HPI Skin: see HPI Psychiatric/Neurological: Anxiety Hematologic/Lymphatic: See HPI Immunological/Allergic: see HPI Past Kmshgbs-Cqaxdr-Kuzjao Hx Patient Social History Tobacco Use?: Yes Seasonal Allergies Seasonal Allergies: No Past Medical History Surgeries: Yes (sinus) Coronary Stent Respiratory: No Cardiac: Yes Heart Attack Neurological: No Reproductive Disorders: No Genitourinary: No Gastrointestinal: No Musculoskeletal: Yes (ARTHRITIS) Endocrine: No HEENT: No Cancer: No Psychosocial: No Integumentary: No Blood Disorders: No Family Medical History No Pertinent Family Hx Physical Exam Vital Signs Vital Signs - First Documented 05/29/21 18:57 Temp 36.2 Pulse 68 Resp 18 B/P (MAP) 177/94 (121) Pulse Ox 96 O2 Delivery Room Air Capillary Refill : Height, Weight, BMI Height: '" Weight: lbs. oz. kg; 26.00 BMI Method: General Appearance: No Apparent Distress, WD/WN, Anxious Eyes: Bilateral Eye Normal Inspection, Bilateral Eye PERRL, Bilateral Eye EOMI HEENT: PERRL/EOMI, Normal ENT Inspection, Pharynx Normal Neck: Non Tender, Supple Respiratory: Lungs Clear Cardiovascular: Regular Rate, Rhythm Gastrointestinal: Non Tender, Soft Extremity: Non Tender, No Calf Tenderness Skin: Normal Color Focused Exam Sepsis Stage: Ruled Out Progress/Results/Core Measures Suspected Sepsis SIRS Temperature: Pulse: Respiratory Rate: Laboratory Tests 05/29/21 19:05: White Blood Count 5.8 Blood Pressure / Mean: Laboratory Tests 05/29/21 19:05: Creatinine 1.03, Platelet Count 309, Total Bilirubin 0.3 Results/Orders Lab Results Laboratory Tests Test 05/29/21 19:05 05/29/21 19:20 Range/Units White Blood Count 5.8 4.3-11.0 10^3/uL Red Blood Count 3.77 L 4.35-5.85 10^6/uL Hemoglobin 11.9 11.5-16.0 G/DL Hematocrit 34 L 35-52 % Mean Corpuscular Volume 91 80-99 FL Mean Corpuscular Hemoglobin 32 25-34 PG Mean Corpuscular Hemoglobin Concent 35 32-36 G/DL Red Cell Distribution Width 12.0 10.0-14.5 % Platelet Count 309 130-400 10^3/uL Mean Platelet Volume 8.1 7.4-10.4 FL Sodium Level 121 *L 135-145 MMOL/L Potassium Level 4.3 3.6-5.0 MMOL/L Chloride Level 87 L 98-107 MMOL/L Carbon Dioxide Level 22 21-32 MMOL/L Anion Gap 12 5-14 MMOL/L Blood Urea Nitrogen 10 7-18 MG/DL Creatinine 1.03 0.60-1.30 MG/DL Estimat Glomerular Filtration Rate 51 BUN/Creatinine Ratio 10 Glucose Level 110 H 70-105 MG/DL Calcium Level 9.0 8.5-10.1 MG/DL Corrected Calcium 9.1 8.5-10.1 MG/DL Total Bilirubin 0.3 0.1-1.0 MG/DL Aspartate Amino Transf (AST/SGOT) 20 5-34 U/L Alanine Aminotransferase (ALT/SGPT) 9 0-55 U/L Alkaline Phosphatase 97 40-136 U/L Troponin I 0.30 <0.30 NG/ML Total Protein 6.6 6.4-8.2 GM/DL Albumin 3.9 3.2-4.5 GM/DL My Orders Orders - RACHNA KEITH DO Cbc No Diff (05/29/21 19:00) Comprehensive Metabolic Panel (05/29/21 19:00) Urinalysis (05/29/21 19:00) Ondansetron Injection (Zofran Injectio (05/29/21 19:15) Troponin I Fs (05/29/21 19:08) Ekg Tracing (05/29/21 19:12) Ed Iv/Invasive Line Start (05/29/21 19:12) Medications Given in ED Current Medications Medications Dose Ordered Sig/Ronda Route Start Time Stop Time Status Last Admin Dose Admin Ondansetron HCl 4 mg ONCE ONCE IVP 05/29/21 19:15 05/29/21 19:16 DC 05/29/21 19:10 4 MG Vital Signs/I&O 05/29/21 18:57 Temp 36.2 Pulse 68 Resp 18 B/P (MAP) 177/94 (121) Pulse Ox 96 O2 Delivery Room Air Capillary Refill : Departure Communication (Admissions) Patient with symptomatic hyponatremia generalized weakness. IV fluids given. Dr. Dia accepts to [facility]. Impression Primary Impression: Generalized weakness Additional Impressions: Nausea Hyponatremia Disposition: SHT-TRM HOSP Condition: Stable Transfer Transfer Reason: Exceeds level of care Time Spoke to Accepting Phy: 20:25 Departure-Patient Inst. Referrals: SELF,JERRY MCCULRE (PCP/Family) Primary Care Physician RACHNA KEITH DO May 29, 2021 19:07
[2021-05-29 19:15] LABS: HEMATOCRIT 34 % (35-52); HEMOGLOBIN 11.9 G/DL (11.5-16.0); MEAN CORPUSCULAR HEMOGLOBIN 32 PG (25-34); MEAN CORPUSCULAR HGB CONC 35 G/DL (32-36); MEAN CORPUSCULAR VOLUME 91 FL (80-99); MEAN PLATELET VOLUME 8.1 FL (7.4-10.4); PLATELET COUNT 309 10^3/uL (130-400); WHITE BLOOD COUNT 5.8 10^3/uL (4.3-11.0)
[2021-05-29] MEDS ORDERED: ONDANSETRON 4 MG/2 ML (SDV) Z0FRAN IVP ONE (19:15)
[2021-05-29 19:43] LABS: ALBUMIN 3.9 GM/DL (3.2-4.5); BILIRUBIN,TOTAL 0.3 MG/DL (0.1-1.0); CREATININE SERUM 1.03 MG/DL (0.60-1.30); POTASSIUM 4.3 MMOL/L (3.6-5.0); TOTAL PROTEIN 6.6 GM/DL (6.4-8.2)
[2021-05-29 20:30] LABS: CLARITY,URINE CLEAR; COLOR,URINE YELLOW; GLUCOSE, URINE (UA) NEGATIVE (NEGATIVE); KETONES,URINE TRACE (NEGATIVE); PH,URINE 6.5 (5-9); PROTEIN,URINE NEGATIVE (NEGATIVE)
[2021-05-29 20:31] LABS: BACTERIA,URINE NEGATIVE /HPF; BILIRUBIN,URINE NEGATIVE (NEGATIVE); LEUKOCYTE ESTERASE ,URINE NEGATIVE (NEGATIVE); NITRITE,URINE NEGATIVE (NEGATIVE); RBC,URINE 0-2 /HPF; SQUAMOUS EPITHELIAL CELL,UR 0-2 /HPF; WBC,URINE 0-2 /HPF
[2021-05-29] MEDS ORDERED: NS IV 1000 ML 1,000 ML IV SCH (21:00)
[2021-05-29 21:16] VITALS: BP 153/70
== END 2021-05-29 21:19 | disposition short-term general hospital (02) ==
LOC: EDUNIT# 18:52 → ER FS 18:53
DX: R53.1 Weakness (principal); R11.2 Nausea with vomiting, unspecified; E87.1 Hypo-osmolality and hyponatremia; I25.2 Old myocardial infarction; I25.10 Atherosclerotic heart disease of native coronary artery without angina pectoris; Z79.82 Long term (current) use of aspirin; Z79.01 Long term (current) use of anticoagulants; Z79.899 Other long term (current) drug therapy
CPT/HCPCS: 36415; 80053; 81000; 84484; 85027; 93005

== ENCOUNTER → 2022-03-14 | Outpatient (CLI) | payer MEDICARE ==
[~2022-03-14] MED LIST changes: -AMIO200T6 PO; +AMIO200T65 PO
--- NOTE | 2022-03-14 12:47 | Diagnostic Imaging Report ---
PROCEDURE: US carotid duplex, bilateral. TECHNIQUE: Multiple real-time grayscale images were obtained over the carotid arteries in various projections, bilaterally. Additional spectral analysis and color Doppler duplex images were also obtained. INDICATION: Atherosclerosis. COMPARISON: CT dated 11/13/2020 FINDINGS: Mild scattered vascular calcifications identified within the bilateral carotid arterial systems. Peak systolic velocities throughout the bilateral carotid arterial systems are within normal limits. Additionally, the bilateral internal carotid artery to common carotid artery ratios are within normal limits. Antegrade flow within the bilateral vertebral arteries. An irregular heartbeat was noted on this examination. A 1.2 cm complex cystic nodule is noted within the left thyroid gland. Antegrade flow within bilateral vertebral arteries. IMPRESSION: No evidence of hemodynamically significant stenosis. Antegrade flow within bilateral vertebral arteries. 1.2 cm complex cystic nodule within the left thyroid lobe. Recommend a dedicated ultrasound of thyroid gland if this is not previously been evaluated. Cardiac arrhythmia incidentally noted. Parameters based on the consensus panel Bell-Scale and Doppler ultrasound criteria published August 2003, Radiology, Volume 229. DOPPLER (peak systolic velocity M/S Right Left CCA .59 1.14 ICA Proximal .94 .90 ICA Mid .86 .62 ICA Distal .74 .61 RATIO 1.57 .49 ECA .54 .55 VERT .67 .29 Dictated by: Dictated on workstation # [id number]
== END ==
LOC: RAD FS 10:30
PROVIDERS: ATTEND Internal Medicine Cardiovascular Disease
DX: I65.23 Occlusion and stenosis of bilateral carotid arteries (principal); E04.1 Nontoxic single thyroid nodule; I49.9 Cardiac arrhythmia, unspecified
CPT/HCPCS: 93306; 93880

== ENCOUNTER 2022-09-16 20:14 | Observation (INO) | payer MEDICARE ==
[~2022-09-16] VITALS: Ht 154.9 cm; Wt 69.8 kg
--- NOTE | 2022-09-16 20:22 | ED General ---
General Stated Complaint: L LEG PAIN/REDNESS History of Present Illness Date Seen by Provider: Sep 16, 2022 Time Seen by Provider: 20:20 Initial Comments 87-year-old female who is on Plavix and aspirin, is here with complaints of left leg bruising and swelling which has been increasing since she had a fall last week. Patient had seen her PCP last week and is supposed to see her again tomorrow, but her leg has been worsening and so she has come to the ER. Denies fever, dizziness, shortness of breath, chest pain. Allergies and Home Medications Allergies Coded Allergies: No Known Drug Allergies (Unverified , 12/02/11) Patient Home Medication List Home Medication List Reviewed: Yes Amiodarone HCl (Amiodarone HCl) 200 Mg Tablet, 400 MG PO BID Prescribed by: ZULLY CRANE on 11/15/19 141 Aspirin (Aspirin EC) 81 Mg Tablet.dr, 81 MG PO DAILY Prescribed by: ZULLY CRANE on 11/15/19 141 Atorvastatin Calcium (Atorvastatin Calcium) 80 Mg Tablet, 80 MG PO HS Prescribed by: ZULLY CRANE on 11/15/19 141 Clopidogrel Bisulfate (Clopidogrel) 75 Mg Tablet, 75 MG PO DAILY Prescribed by: ZULLY CRANE on 11/15/19 141 Docusate Sodium (Docusate Sodium) 100 Mg Capsule, 100 MG PO BID, (Reported) Entered as Reported by: EMERALD FIGUEREDO on 11/12/19 131 Loratadine (Claritin) 10 Mg Tablet, 10 MG PO DAILY, (Reported) Entered as Reported by: EMERALD FIGUEREDO on 11/12/19 131 Losartan Potassium (Losartan Potassium) 25 Mg Tablet, 25 MG PO DAILY Prescribed by: ZULLY CRANE on 11/15/19 141 Metoprolol Tartrate (Metoprolol Tartrate) 25 Mg Tablet, 12.5 MG PO BID Prescribed by: ZULLY CRANE on 11/15/19 141 Multivitamin with Minerals (One Daily Complete) 1 Each Tablet, 1 TAB PO DAILY, (Reported) Entered as Reported by: EMERALD FIGUEREDO on 11/12/19 131 [place] 3 Polyunsat Fatty Acids (Fish Oil 1,000 mg Capsule) 1,000 Mg Cap, 1,000 MG PO BID, (Reported) Entered as Reported by: EMERALD FIGUEREDO on 11/12/197 Vitamin E Acetate (Vitamin E) 400 Unit Capsule, 400 UNIT PO DAILY, (Reported) Entered as Reported by: EMERALD FIGUEREDO on 11/12/197 Review of Systems Review of Systems Constitutional: no symptoms reported EENTM: no symptoms reported Respiratory: no symptoms reported Cardiovascular: no symptoms reported Gastrointestinal: no symptoms reported Genitourinary: no symptoms reported Musculoskeletal: joint swelling Skin: no symptoms reported Psychiatric/Neurological: No Symptoms Reported Hematologic/Lymphatic: No Symptoms Reported Immunological/Allergic: no symptoms reported Past Yiixjfj-Llahmo-Yvpbfr Hx Seasonal Allergies Seasonal Allergies: No Past Medical History Surgeries: Yes (sinus) Coronary Stent Respiratory: No Cardiac: Yes Heart Attack Neurological: No Reproductive Disorders: No Genitourinary: No Gastrointestinal: No Musculoskeletal: Yes (ARTHRITIS) Endocrine: No HEENT: No Cancer: No Psychosocial: No Integumentary: No Blood Disorders: No Family Medical History No Pertinent Family Hx Physical Exam Vital Signs Vital Signs - First Documented 09/16/22 09/16/22 20:17 22:59 Temp 37.2 Pulse 66 Resp 18 B/P (MAP) 125/82 (96) Pulse Ox 97 O2 Delivery Room Air Capillary Refill : Height, Weight, BMI Height: '" Weight: lbs. oz. kg; 26.00 BMI Method: General Appearance: No Apparent Distress, WD/WN HEENT: PERRL/EOMI Neck: Full Range of Motion, Normal Inspection Respiratory: Lungs Clear, Normal Breath Sounds Cardiovascular: Regular Rate, Rhythm Gastrointestinal: Non Tender, Soft Extremity: Normal Range of Motion, Calf Tenderness, Pedal Edema (Nonpitting edema of her left leg with swelling extending from lower part of thigh to her foot, with extensive hematoma formation, ecchymosis, mild tenderness, not warm to touch.) Neurologic/Psychiatric: Alert, Oriented x3, Normal Mood/Affect Skin: Ecchymosis (of left ), Other (Extensive ecchymosis of left leg , N/V bundle intact) Progress/Results/Core Measures Suspected Sepsis SIRS Temperature: Pulse: Respiratory Rate: Laboratory Tests 09/16/22 20:47: White Blood Count 7.2 Blood Pressure / Mean: Laboratory Tests 09/16/22 20:47: Creatinine 0.81, INR Comment 1.0, Platelet Count 275, Total Bilirubin 0.7 Results/Orders Lab Results Laboratory Tests Test 09/16/22 20:47 Range/Units White Blood Count 7.2 4.3-11.0 10^3/uL Red Blood Count 3.26 L 3.80-5.11 10^6/uL Hemoglobin 10.6 L 11.5-16.0 g/dL Hematocrit 31 L 35-52 % Mean Corpuscular Volume 94 80-99 fL Mean Corpuscular Hemoglobin 33 25-34 pg Mean Corpuscular Hemoglobin Concent 35 32-36 g/dL Red Cell Distribution Width 12.9 10.0-14.5 % Platelet Count 275 130-400 10^3/uL Mean Platelet Volume 8.6 L 9.0-12.2 fL Immature Granulocyte % (Auto) 0 % Neutrophils (%) (Auto) 60 42-75 % Lymphocytes (%) (Auto) 26 12-44 % Monocytes (%) (Auto) 11 0-12 % Eosinophils (%) (Auto) 2 0-10 % Basophils (%) (Auto) 1 0-10 % Neutrophils # (Auto) 4.4 1.8-7.8 10^3/uL Lymphocytes # (Auto) 1.9 1.0-4.0 10^3/uL Monocytes # (Auto) 0.8 0.0-1.0 10^3/uL Eosinophils # (Auto) 0.1 0.0-0.3 10^3/uL Basophils # (Auto) 0.0 0.0-0.1 10^3/uL Immature Granulocyte # (Auto) 0.0 0.0-0.1 10^3/uL Prothrombin Time 13.3 12.2-14.7 SEC INR Comment 1.0 0.8-1.4 Activated Partial Thromboplast Time 38 H 24-35 SEC D-Dimer 1.43 H 0.00-0.49 UG/ML Sodium Level 132 L 135-145 MMOL/L Potassium Level 4.1 3.6-5.0 MMOL/L Chloride Level 95 L 98-107 MMOL/L Carbon Dioxide Level 27 21-32 MMOL/L Anion Gap 10 5-14 MMOL/L Blood Urea Nitrogen 16 7-18 MG/DL Creatinine 0.81 0.60-1.30 MG/DL Estimat Glomerular Filtration Rate 70 BUN/Creatinine Ratio 20 Glucose Level 104 70-105 MG/DL Calcium Level 9.2 8.5-10.1 MG/DL Corrected Calcium 9.5 8.5-10.1 MG/DL Magnesium Level 1.7 1.6-2.4 MG/DL Total Bilirubin 0.7 0.1-1.0 MG/DL Aspartate Amino Transf (AST/SGOT) 25 5-34 U/L Alanine Aminotransferase (ALT/SGPT) 13 0-55 U/L Alkaline Phosphatase 99 40-136 U/L C-Reactive Protein 5.59 H <0.50 MG/DL Total Protein 6.9 6.4-8.2 GM/DL Albumin 3.6 3.2-4.5 GM/DL My Orders Orders - ENID BRODERICK MD Femur 2 View Left (09/16/22 20:41) Tibia Fibula 2 View Left (09/16/22 20:41) Cbc With Automated Diff (09/16/22 20:42) Comprehensive Metabolic Panel (09/16/22 20:42) Fibrin Degradation Products (09/16/22 20:42) Magnesium (09/16/22 20:42) Protime With Inr (09/16/22 20:42) Partial Thromboplastin Time (09/16/22 20:42) Ed Iv/Invasive Line Start (09/16/22 20:49) Crp Fs (09/16/22 20:54) Cefazolin Injection (Ancef Injection) (09/16/22 22:00) Cefazolin Injection (Ancef Injection) (09/16/22 21:56) Ns (Ivpb) (Sodium Chloride 0.9% Ivpb Bag (09/16/22 21:56) Ed Admission (Communication) (09/16/22 22:43) Medications Given in ED Current Medications Medications Dose Ordered Sig/Ronda Route Start Time Stop Time Status Last Admin Dose Admin Cefazolin Sodium 1000 mg/Sodium Chloride 50 ml @ 100 mls/hr ONCE ONCE IV 09/16/22 22:00 09/16/22 22:29 DC 09/16/22 21:59 100 MLS/HR Vital Signs/I&O 09/16/22 09/16/22 20:17 22:59 Temp 37.2 Pulse 66 60 Resp 18 16 B/P (MAP) 125/82 (96) 150/92 Pulse Ox 97 99 O2 Delivery Room Air 09/17/22 00:00 Intake Total 50 ml Balance 50 ml Capillary Refill : Progress Note : Progress Note 1. LEFT LOWER EXTREMITY CELLULITIS: - XR LEFT FEMUR / FIB-TIB: no fracture - Labs: WBC normal, CRP 5.59 - Cefazolin 1gm iv STAT -Will admit patient to observation for IV antibiotics and for DVT rule out. Discussed with hospitalist and accepted for admission. 2. ELEVATED D-DIMER: - D-dimer is 1.43 -Patient will need a Doppler ultrasound of her lower left extremity. No ultrasound available at [place] at this time. -Patient appears to have a hematoma and extravasation of blood into the soft tissues of the lower extremity with extensive ecchymosis. Due to the uncertainty of bleeding, will hold on the plan for Lovenox for this patient until an ultrasound is done. Departure Impression Primary Impression: Cellulitis of left lower extremity Additional Impression: Elevated d-dimer Disposition: 30 STILL A PATIENT Condition: Stable Transfer Method of Transfer: EMS Departure-Patient Inst. Referrals: SELF,JERRY MCCLURE (PCP/Family) Primary Care Physician ENID BRODERICK MD Sep 16, 2022 20:22
[2022-09-16 20:53] LABS: BASOPHILS % (AUTO) 1 % (0-10); EOSINOPHILS # (AUTO) 0.1 10^3/uL (0.0-0.3); EOSINOPHILS % (AUTO) 2 % (0-10); HEMATOCRIT 31 % (35-52); HEMOGLOBIN 10.6 g/dL (11.5-16.0); LYMPHOCYTES # (AUTO) 1.9 10^3/uL (1.0-4.0); LYMPHOCYTES % (AUTO) 26 % (12-44); MEAN CORPUSCULAR HEMOGLOBIN 33 pg (25-34); MEAN CORPUSCULAR HGB CONC 35 g/dL (32-36); MEAN CORPUSCULAR VOLUME 94 fL (80-99); MEAN PLATELET VOLUME 8.6 fL (9.0-12.2); MONOCYTES # (AUTO) 0.8 10^3/uL (0.0-1.0); MONOCYTES % (AUTO) 11 % (0-12); NEUTROPHILS # (AUTO) 4.4 10^3/uL (1.8-7.8); NEUTROPHILS % (AUTO) 60 % (42-75); PLATELET COUNT 275 10^3/uL (130-400); WHITE BLOOD COUNT 7.2 10^3/uL (4.3-11.0)
[2022-09-16 21:12] LABS: BILIRUBIN,TOTAL 0.7 MG/DL (0.1-1.0); CALCIUM 9.2 MG/DL (8.5-10.1); CREATININE SERUM 0.81 MG/DL (0.60-1.30); MAGNESIUM 1.7 MG/DL (1.6-2.4); POTASSIUM 4.1 MMOL/L (3.6-5.0); TOTAL PROTEIN 6.9 GM/DL (6.4-8.2)
[2022-09-16 21:13] LABS: ALBUMIN 3.6 GM/DL (3.2-4.5); PROTHROMBIN TIME PATIENT 13.3 SEC (12.2-14.7)
[2022-09-16 21:14] LABS: FIBRIN DEGRADATION PRODUCTS 1.43 UG/ML (0.00-0.49)
--- NOTE | 2022-09-16 21:28 | Diagnostic Imaging Report ---
INDICATION: Fall, swelling COMPARISON: None available. TECHNIQUE: 2 radiographs of the left tibia and fibula dated 09/16/2022 FINDINGS: No acute fracture or dislocation. No destructive osseous process. Joint space narrowing is noted, particularly involving the lateral compartment of the knee. Significant soft tissue swelling and subcutaneous fat stranding is noted lateral to the mid to distal fibula. Serpiginous densities are noted within the subcutaneous tissues medially. No suspicious radiopaque foreign body. Tiny calcaneal enthesophytes. IMPRESSION: No acute osseous abnormality with soft tissue swelling/contusion/hematoma lateral to the mid to distal fibula. Varicose veins suggested. Scattered degenerative changes. Dictated by: Dictated on workstation # [id number]
--- NOTE | 2022-09-16 21:28 | Diagnostic Imaging Report ---
INDICATION: Fall, pain, swelling COMPARISON: None available TECHNIQUE: 4 radiographs of the left femur dated 09/16/2022 FINDINGS: No acute fracture or dislocation. No destructive osseous process. Moderate left hip joint space narrowing with moderate osteophyte formation. No left knee joint effusion. No suspicious radiopaque foreign body. No collapse of the left femoral head. IMPRESSION: No acute osseous abnormality with moderate degenerative changes of the left hip. Dictated by: Dictated on workstation # [id number]
[2022-09-16] MEDS ORDERED: ceFAZolin INJECTION 1,000 MG ONE (21:56)
[2022-09-16] MEDS ORDERED: NS (IVPB) 50 ML ONE (21:56)
[2022-09-16] MEDS ORDERED: ceFAZolin INJECTION 1,000 MG in NS (IVPB) 50 ML IV ONE (22:00)
[2022-09-17] VITALS (8 sets, daily range): BP systolic 124–191; BP diastolic 60–85
[2022-09-17] MEDS: CATHETER FLUSH 10 ML SYR IVP SCH ×3 (05:26→22:11)
[2022-09-17] MEDS: ceFAZolin INJECTION 1,000 MG VIAL IV SCH ×3 (05:26→22:10)
[2022-09-17 05:56] LABS: BASOPHILS % (AUTO) 0 % (0-10); EOSINOPHILS # (AUTO) 0.2 10^3/uL (0.0-0.3); EOSINOPHILS % (AUTO) 2 % (0-10); HEMATOCRIT 32 % (35-52); HEMOGLOBIN 10.5 g/dL (11.5-16.0); LYMPHOCYTES # (AUTO) 2.2 10^3/uL (1.0-4.0); LYMPHOCYTES % (AUTO) 31 % (12-44); MEAN CORPUSCULAR HEMOGLOBIN 32 pg (25-34); MEAN CORPUSCULAR HGB CONC 33 g/dL (32-36); MEAN CORPUSCULAR VOLUME 96 fL (80-99); MEAN PLATELET VOLUME 8.7 fL (9.0-12.2); MONOCYTES # (AUTO) 0.8 10^3/uL (0.0-1.0); MONOCYTES % (AUTO) 11 % (0-12); NEUTROPHILS # (AUTO) 3.9 10^3/uL (1.8-7.8); NEUTROPHILS % (AUTO) 54 % (42-75); PLATELET COUNT 284 10^3/uL (130-400); WHITE BLOOD COUNT 7.1 10^3/uL (4.3-11.0)
[2022-09-17 06:09] LABS: POTASSIUM 3.8 MMOL/L (3.6-5.0)
[2022-09-17 06:15] LABS: CREATININE SERUM 0.78 MG/DL (0.60-1.30)
[2022-09-17] MEDS: ACETAMINOPHEN 325 MG TABLET PO PRN ×2 (06:51→23:12)
[2022-09-17] MEDS ORDERED: ENOXAPARIN 80 MG/0.8 ML (LOVENOX) SYR SQ SCH (09:00)
--- NOTE | 2022-09-17 10:48 | Diagnostic Imaging Report ---
PROCEDURE: US left lower extremity venous. TECHNIQUE: Multiple Real-time grayscale images were obtained over the left lower extremity in various projections. Additional duplex Doppler and color Doppler images were also obtained. INDICATION: Left lower leg cellulitis, edema. COMPARISON: None. FINDINGS: The left common femoral vein, femoral vein, deep femoral vein, and popliteal vein are normal in appearance. These vessels show normal compressibility, color flow, and Doppler augmentation. The visualized deep calf veins demonstrate no distinct intraluminal thrombus. IMPRESSION: No sonographic evidence of deep venous thrombosis in the left lower extremity. Preliminary findings were reported to the patient's nurse by the machine heel builder following the examination. Dictated by: Dictated on workstation # [id number]
[2022-09-17] MEDS ORDERED: DOCU100C37 PO (11:10)
[2022-09-17] MEDS ORDERED: FURO20TA4 PO (11:10)
[2022-09-17] MEDS ORDERED: ASPI-1238 PO (11:10)
[2022-09-17] MEDS ORDERED: RED600CA2 PO (11:10)
[2022-09-17] MEDS ORDERED: POTA-177 PO (11:10)
[2022-09-17] MEDS ORDERED: MULT-1054 PO (11:10)
--- NOTE | 2022-09-17 11:11 | History & Physical ---
HPI History of Present Illness: A week ago fell, slipped on frosty steps, and hit her left lower leg. She felt okay after and went to the store and got her groceries, she did then start to have pain and went to the doctor's office. They did no suspect fracture, just hematoma, and she has been taking pain medication up until yesterday and icing. Yesterday around 4:30 pm she started having redness around the lower estrella. She initially had severe swelling all the way above knee, it has now been just below knee. She had a large blister over the estrella, and was keeping wrapped which did help the pain as well. Blister started about 3 days after the injury. She has no known history of a fib. She did have a heart attack in 2019 and knew she had a heart murmur. She last saw Cardiology about 6 months ago. She has been on lasix she says for a couple of years, unsure exactly why, denies being told she had heart failure. She was on metoprolol and losartan, those were stopped around 3 months ago due to low BP. Source: patient Date seen by provider: Sep 17, 2022 Time Seen by Provider: 11:07 Attending Physician Aaron Aguilar MD PCP Admitting Physician: Verna Downs MD Attending Physician: Verna Downs MD Consult Date of Admission Sep 16, 2022 at 23:59 Home Medications Home Medications Reviewed patient Home Medication Reconciliation performed by pharmacy medication reconciliations csr technician and/or nursing. Patients Allergies have been reviewed. Allergies Coded Allergies: No Known Drug Allergies (Unverified , 12/02/11) ICV-Zvvppo-Svpyeh Hx Patient Social History Smoking Status: Former Smoker 2nd Hand Smoke Exposure: No Recent Hopitalizations: No Alcohol Use?: No Tobacco type used: Cigarettes Have you traveled recently?: No Immunizations Up To Date Influenza Vaccine Up-to-Date: Yes; Up-to-Date Past Medical History PMHx: CAD with stenting SurgHx: Coronary artery stents x 3 Lumbar vertebral surgery Sinus surgery Family Medical History Significant Family History: No Pertinent Family Hx Review of Systems ([facility]) Constitutional: chills (earlier in the week), diaphoresis (earlier in the week); No fever Respiratory: No cough, No short of breath Cardiovascular: No chest pain, No palpitations Gastrointestinal: No abdominal pain; constipation (resolved yesterday); No diarrhea, No nausea, No vomiting Genitourinary: No dysuria Musculoskeletal: back pain, joint pain Skin: see HPI Psychiatric/Neurological: Denies Anxiety, Denies Depressed Reviewed Test Results Reviewed Test Results Lab Laboratory Tests Test 09/16/22 20:47 09/17/22 05:47 Range/Units White Blood Count 7.2 7.1 4.3-11.0 10^3/uL Red Blood Count 3.26 L 3.32 L 3.80-5.11 10^6/uL Hemoglobin 10.6 L 10.5 L 11.5-16.0 g/dL Hematocrit 31 L 32 L 35-52 % Mean Corpuscular Volume 94 96 80-99 fL Mean Corpuscular Hemoglobin 33 32 25-34 pg Mean Corpuscular Hemoglobin Concent 35 33 32-36 g/dL Red Cell Distribution Width 12.9 13.0 10.0-14.5 % Platelet Count 275 284 130-400 10^3/uL Mean Platelet Volume 8.6 L 8.7 L 9.0-12.2 fL Immature Granulocyte % (Auto) 0 0 % Neutrophils (%) (Auto) 60 54 42-75 % Lymphocytes (%) (Auto) 26 31 12-44 % Monocytes (%) (Auto) 11 11 0-12 % Eosinophils (%) (Auto) 2 2 0-10 % Basophils (%) (Auto) 1 0 0-10 % Neutrophils # (Auto) 4.4 3.9 1.8-7.8 10^3/uL Lymphocytes # (Auto) 1.9 2.2 1.0-4.0 10^3/uL Monocytes # (Auto) 0.8 0.8 0.0-1.0 10^3/uL Eosinophils # (Auto) 0.1 0.2 0.0-0.3 10^3/uL Basophils # (Auto) 0.0 0.0 0.0-0.1 10^3/uL Immature Granulocyte # (Auto) 0.0 0.0 0.0-0.1 10^3/uL Prothrombin Time 13.3 12.2-14.7 SEC INR Comment 1.0 0.8-1.4 Activated Partial Thromboplast Time 38 H 24-35 SEC D-Dimer 1.43 H 0.00-0.49 UG/ML Sodium Level 132 L 135 135-145 MMOL/L Potassium Level 4.1 3.8 3.6-5.0 MMOL/L Chloride Level 95 L 99 98-107 MMOL/L Carbon Dioxide Level 27 26 21-32 MMOL/L Anion Gap 10 10 5-14 MMOL/L Blood Urea Nitrogen 16 13 7-18 MG/DL Creatinine 0.81 0.78 0.60-1.30 MG/DL Estimat Glomerular Filtration Rate 70 73 BUN/Creatinine Ratio 20 17 Glucose Level 104 87 70-105 MG/DL Calcium Level 9.2 9.0 8.5-10.1 MG/DL Corrected Calcium 9.5 8.5-10.1 MG/DL Magnesium Level 1.7 1.6-2.4 MG/DL Total Bilirubin 0.7 0.1-1.0 MG/DL Aspartate Amino Transf (AST/SGOT) 25 5-34 U/L Alanine Aminotransferase (ALT/SGPT) 13 0-55 U/L Alkaline Phosphatase 99 40-136 U/L C-Reactive Protein 5.59 H <0.50 MG/DL Total Protein 6.9 6.4-8.2 GM/DL Albumin 3.6 3.2-4.5 GM/DL Radiology Left tib/fib and femur x-rays with no fractures Doppler US negative for DVT Physical Exam-([facility]) Physical Exam Vital Signs VS - Last 72 Hours, by Label 09/16/22 09/16/22 09/17/22 09/17/22 20:17 22:59 00:01 00:30 Temp 37.2 36.5 Pulse 66 60 60 Resp 18 16 18 B/P (MAP) 125/82 (96) 150/92 140/63 (88) Pulse Ox 97 99 96 O2 Delivery Room Air Room Air Room Air 09/17/22 09/17/22 09/17/22 09/17/22 01:11 01:25 01:50 03:51 Temp 36.4 Pulse 57 116 60 60 Resp 18 B/P (MAP) 140/67 (91) Pulse Ox 96 95 O2 Delivery Room Air FiO2 21 09/17/22 09/17/22 09/17/22 09/17/22 07:17 08:00 08:00 11:41 Temp 36.8 37.1 Pulse 56 58 58 Resp 18 18 B/P (MAP) 145/65 (91) 191/85 (120) Pulse Ox 95 95 96 O2 Delivery Room Air Room Air Room Air 09/17/22 09/17/22 09/17/22 12:47 13:23 16:20 Temp 36.8 Pulse 67 57 60 Resp 18 B/P (MAP) 136/63 (87) Pulse Ox 98 O2 Delivery Room Air Capillary Refill : Less Than 3 Seconds General Appearance: WD/WN, no apparent distress Respiratory: lungs clear, normal breath sounds Cardiovascular: regular rate, rhythm, no murmur, bradycardia Peripheral Pulses: 2+ Dorsalis Pedis (R), 2+ Left Dors-Pedis (L) Gastrointestinal: normal bowel sounds, non tender, soft Extremities: pedal edema (trace pedal edema right leg, see skin for left leg findings) Neurologic/Psychiatric: alert, normal mood/affect, oriented x 3 Skin: other (large area of erythema over left estrella from ankle to just below knee, ecchymosis posterior calf and thigh, markedly swollen left calf compared to right, large dark bullous area over erythema with small section most distal about 4 cm in diameter that is black and possibly necrotic, some blood drops expressed with light pressure) Assessment/Plan Assessment/Plan Admission Status: Observation (1) Cellulitis of left lower extremity Status: Acute Assessment & Plan: Cefazolin started in ER, pt reports improvement. Markedly large hematoma with dark area concerning for possible need for debridement, Surgery consulted. (2) Hematoma Status: Acute Assessment & Plan: Secondary to injury, now infected, see above. (3) Atrial fibrillation Status: Acute Assessment & Plan: Patient does not recall history of a fib, has had CAD with stenting and was on amiodarone in the past but she isn't sure why. Cardiology consulted, appreciate recommendations. Hesitant to start anticoagulation given marked hematoma with large ecchymosis and some bleeding with light touch. Qualifiers: Qualified Codes: I48.0 - Paroxysmal atrial fibrillation (4) Coronary artery disease Qualifiers: Qualified Codes: I25.10 - Atherosclerotic heart disease of [place] coronary artery without angina pectoris (5) Hyponatremia Status: Acute Assessment & Plan: Improving, suspect due to poor intake with nausea and poor appetite due to infection. (6) Elevated d-dimer Status: Acute Assessment & Plan: Venous doppler negative. VERNA DOWNS MD Sep 17, 2022 11:11
[2022-09-17] MEDS ORDERED: LOSARTAN 50 MG (COZAAR) TAB PO NR (13:00)
--- NOTE | 2022-09-17 14:11 | Consultation - Surgery ---
History of Present Illness History of Present Illness Patient Consulted On(flakito/time) 09/17/22 14:02 Time Seen by Provider: 11:51 History of Present Illness Surgery asked to consult regarding LLE swelling. HPI per ED: 87-year-old female who is on Plavix and aspirin, is here with comp laints of left leg bruising and swelling which has been increasing since she had a fall last week. Patient had seen her PCP last week and is supposed to see her again tomorrow, but her leg has been worsening and so she has come to the ER. Denies fever, dizziness, shortness of breath, chest pain. When I saw pt this afternoon, she was in her bed in 430. Laying down and appears comfortable. She is an 87yo female who fell down her wooden steps, striking her left estrella. This occurred about a week ago at her brother's, but there was montaño on the stairs. Denies hitting her head and no LOC. She is on blood thinners. She had some pain the day of and noted a large hematoma; started developing "redness" around the hematoma on Friday. She is not sure how she fell, stated she was walking down the steps; however, the wound is on the front of the leg. She describes the pain as 10 out of 10 when it happened; today it is a zero "if I don't move". Worse if it is touched and with some movement. She was wrapping it at home and using ice, which helped. Allergies and Home Medications Allergies Coded Allergies: No Known Drug Allergies (Unverified , 12/02/11) Patient Home Medication List Home Medication List Reviewed: Yes Aspirin (Aspirin EC) 81 Mg Tablet.dr, 81 MG PO HS, (Reported) Entered as Reported by: AUGIE HILL on 09/17/22 1110 Last Action: Reviewed Docusate Sodium (Docusate Sodium) 100 Mg Capsule, 200 MG PO DAILY, (Reported) Entered as Reported by: EMERALD FIGUEREDO on 11/12/19 1317 Last Action: Reviewed Docusate Sodium (Docusate Sodium) 100 Mg Capsule, 300 MG PO HS, (Reported) Entered as Reported by: AUGIE HILL on 09/17/22 1110 Last Action: Reviewed Furosemide (Furosemide) 20 Mg Tablet, 20 MG PO HS, (Reported) Entered as Reported by: AUGIE HILL on 09/17/221109 Last Action: Reviewed Multivitamin with Minerals (One Daily Complete) 1 Each Tablet, 1 EA PO DAILY, (Reported) Entered as Reported by: EMERALD FIGUEREDO on 11/12/191316 Last Action: Reviewed Multivitamin with Minerals (Hair, Skin & Nails) 1 Each Tablet, 1 EACH PO DAILY, (Reported) Entered as Reported by: AUGIE HILL on 09/17/221109 Last Action: Reviewed Potassium Chloride (Potassium Chloride) 10 Meq Tab.er.prt, 10 MEQ PO HS, (Reported) Entered as Reported by: AUGIE HILL on 09/17/221109 Last Action: Reviewed Red Yeast Rice (Red Yeast Rice) 600 Mg Capsule, 600 MG PO BID, (Reported) Entered as Reported by: AUGIE HILL on 09/17/221109 Last Action: Reviewed Discontinued Medications Amiodarone HCl (Amiodarone HCl) 200 Mg Tablet, 400 MG PO BID Discontinued Reason: No Longer Taking Prescribed by: ZULLY CRANE on 11/15/191415 Last Action: Discontinued Aspirin (Aspirin EC) 81 Mg Tablet.dr, 81 MG PO DAILY Discontinued Reason: No Longer Taking Prescribed by: ZULLY CRANE on 11/15/191415 Last Action: Discontinued Atorvastatin Calcium (Atorvastatin Calcium) 80 Mg Tablet, 80 MG PO HS Discontinued Reason: No Longer Taking Prescribed by: ZULLY CRANE on 11/15/191415 Last Action: Discontinued Clopidogrel Bisulfate (Clopidogrel) 75 Mg Tablet, 75 MG PO DAILY Discontinued Reason: No Longer Taking Prescribed by: ZULLY CRANE on 11/15/191415 Last Action: Discontinued Loratadine (Claritin) 10 Mg Tablet, 10 MG PO DAILY, (Reported) Discontinued Reason: No Longer Taking Entered as Reported by: EMERALD FIGUEREDO on 11/12/191316 Last Action: Discontinued Losartan Potassium (Losartan Potassium) 25 Mg Tablet, 25 MG PO DAILY Discontinued Reason: No Longer Taking Prescribed by: ZULLY CRANE on 11/15/191415 Last Action: Discontinued Metoprolol Tartrate (Metoprolol Tartrate) 25 Mg Tablet, 12.5 MG PO BID Discontinued Reason: No Longer Taking Prescribed by: ZULLY CRANE on 11/15/191415 Last Action: Discontinued [place] 3 Polyunsat Fatty Acids (Fish Oil 1,000 mg Capsule) 1,000 Mg Cap, 1,000 MG PO BID, (Reported) Discontinued Reason: No Longer Taking Entered as Reported by: EMERALD FIGUEREDO on 11/12/191316 Last Action: Discontinued Vitamin E Acetate (Vitamin E) 400 Unit Capsule, 400 UNIT PO DAILY, (Reported) Discontinued Reason: No Longer Taking Entered as Reported by: EMERALD FIGUEREDO on 11/12/191316 Last Action: Discontinued Past Krjrrch-Tjvawc-Tgtmnw Hx Patient Social History Smoking Status: Former Smoker 2nd Hand Smoke Exposure: No Recent Hopitalizations: No Alcohol Use?: No Have you traveled recently?: No Immunizations Up To Date Date of Influenza Vaccine: Jul 11, 2022 Seasonal Allergies Seasonal Allergies: No Surgeries History of Surgeries: Yes (sinus) Surgeries: Coronary Stent Respiratory History of Respiratory Disorde: No Cardiovascular History of Cardiac Disorders: Yes Cardiac Disorders: Aneurysm (thoracic), Coronary Artery Disease, Heart Attack Neurological History of Neurological Disord: No Reproductive System Hx Reproductive Disorders: No Genitourinary History of Genitourinary Disor: No Gastrointestinal History of Gastrointestinal Di: No Musculoskeletal History of Musculoskeletal Dis: Yes Musculoskeletal Disorders: Arthritis Endocrine History of Endocrine Disorders: No HEENT History of HEENT Disorders: No Cancer History of Cancer: No Psychosocial History of Psychiatric Problem: No Integumentary History of Skin or Integumenta: No Blood Transfusions History of Blood Disorders: No Family Medical History Significant Family History: Heart Disease (mother), Cancer (Bone - father), Diabetes (sister) Review of Systems-General Constitutional: No dizziness, No malaise, No weakness EENTM: other ("sinus issues"); No blurred vision, No mouth swelling, No epistaxis Respiratory: No cough, No dyspnea on exertion, No short of breath Cardiovascular: No chest pain; Hx of Intervention Gastrointestinal: No abdominal pain, No nausea, No vomiting Genitourinary: No dysuria, No frequency, No hematuria Musculoskeletal: joint pain, joint swelling, muscle stiffness Skin: change in color; No change in hair/nails; other (hematoma) Psychiatric/Neurological: Denies Anxiety, Denies Depressed, Denies Seizure Physical Exam-General Problems Physical Exam Vital Signs Vital Signs - First Documented 09/16/22 09/16/22 09/17/22 20:17 22:59 01:50 Temp 37.2 Pulse 66 Resp 18 B/P (MAP) 125/82 (96) Pulse Ox 97 O2 Delivery Room Air FiO2 21 Capillary Refill : Less Than 3 Seconds General Appearance: WD/WN, no apparent distress Eyes: Bilateral Eye PERRL, Bilateral Eye EOMI HEENT: pharynx normal; No scleral icterus (R), No scleral icterus (L) Neck: non-tender, supple Respiratory: lungs clear, normal breath sounds, no respiratory distress, no accessory muscle use Cardiovascular: regular rate, rhythm, systolic murmur Gastrointestinal: non tender, soft Back: no CVA tenderness, no vertebral tenderness Extremities: no calf tenderness, normal capillary refill, other (Left leg below knee there is a scab measuring 16.5 x 5.5 cm, with fluctuance underneath and surrounding erythema. Diffuse ecchymosis from top of foot, all around leg and going up behind knee to upper leg, but not on the thigh) Neurologic/Psychiatric: alert, oriented x 3 Skin: normal color, warm/dry Lymphatic: no adenopathy (neck, axilla or groin) Data Review Labs Laboratory Tests 09/16/22 20:47: White Blood Count 7.2, Red Blood Count 3.26L, Hemoglobin 10.6L, Hematocrit 31L, Mean Corpuscular Volume 94, Mean Corpuscular Hemoglobin 33, Mean Corpuscular Hemoglobin Concent 35, Red Cell Distribution Width 12.9, Platelet Count 275, Mean Platelet Volume 8.6L, Immature Granulocyte % (Auto) 0, Neutrophils (%) (Auto) 60, Lymphocytes (%) (Auto) 26, Monocytes (%) (Auto) 11, Eosinophils (%) (Auto) 2, Basophils (%) (Auto) 1, Neutrophils # (Auto) 4.4, Lymphocytes # (Auto) 1.9, Monocytes # (Auto) 0.8, Eosinophils # (Auto) 0.1, Basophils # (Auto) 0.0, Immature Granulocyte # (Auto) 0.0, Prothrombin Time 13.3, INR Comment 1.0, Activ ated Partial Thromboplast Time 38H, D-Dimer 1.43H, Sodium Level 132L, Potassium Level 4.1, Chloride Level 95L, Carbon Dioxide Level 27, Anion Gap 10, Blood Urea Nitrogen 16, Creatinine 0.81, Estimat Glomerular Filtration Rate 70, BUN/Creatinine Ratio 20, Glucose Level 104, Calcium Level 9.2, Corrected Calcium 9.5, Magnesium Level 1.7, Total Bilirubin 0.7, Aspartate Amino Transf (AST/SGOT) 25, Alanine Aminotransferase (ALT/SGPT) 13, Alkaline Phosphatase 99, C-Reactive Protein 5.59H, Total Protein 6.9, Albumin 3.6 09/17/22 05:47: White Blood Count 7.1, Red Blood Count 3.32L, Hemoglobin 10.5L, Hematocrit 32L, Mean Corpuscular Volume 96, Mean Corpuscular Hemoglobin 32, Mean Corpuscular Hemoglobin Concent 33, Red Cell Distribution Width 13.0, Platelet Count 284, Mean Platelet Volume 8.7L, Immature Granulocyte % (Auto) 0, Neutrophils (%) (Auto) 54, Lymphocytes (%) (Auto) 31, Monocytes (%) (Auto) 11, Eosinophils (%) (Auto) 2, Basophils (%) (Auto) 0, Neutrophils # (Auto) 3.9, Lymphocytes # (Auto) 2.2, Monocytes # (Auto) 0.8, Eosinophils # (Auto) 0.2, Basophils # (Auto) 0.0, Immature Granulocyte # (Auto) 0.0, Sodium Level 135, Potassium Level 3.8, Chloride Level 99, Carbon Dioxide Level 26, Anion Gap 10, Blood Urea Nitrogen 13, Creatinine 0.78, Estimat Glomerular Filtration Rate 73, BUN/Creatinine Ratio 17, Glucose Level 87, Calcium Level 9.0 Radiology Date of Exam:09/17/22 US VENOUS LOWER EXT LT PROCEDURE: US left lower extremity venous. TECHNIQUE: Multiple Real-time grayscale images were obtained over the left lower extremity in various projections. Additional duplex Doppler and color Doppler images were also obtained. INDICATION: Left lower leg cellulitis, edema. COMPARISON: None. FINDINGS: The left common femoral vein, femoral vein, deep femoral vein, and popliteal vein are normal in appearance. These vessels show normal compressibility, color flow, and Doppler augmentation. The visualized deep calf veins demonstrate no distinct intraluminal thrombus. IMPRESSION: No sonographic evidence of deep venous thrombosis in the left lower extremity. Preliminary findings were reported to the patient's nurse by the regulator assembler following the examination. Dictated by: Dictated on workstation # [id number] Dict: 09/17/22 1045 Trans: 09/17/22 1128 [id number] Interpreted by: DAVIS ASHER MD Electronically signed by: DAVIS ASHER MD 09/17/22 1128 Assessment/Plan Assessment/Plan Assessment/Plan LLE Hematoma Fluctuance under area in LLE Ischemic tissue vs Scab Large ecchymosis over LLE Plan is have wound care see pt, she is getting pain meds, IV fluids and on a diet. May need to remove the lower portion of scab to release fluid, to make sure there is no abscess. However, releasing this pressure may also allow the bleeding to start again. ZENON HARVEY DO Sep 17, 2022 14:10
--- NOTE | 2022-09-17 15:50 | Consultation-Cardiology ---
HPI-Cardiology Cardiology Consultation Date of Consultation 09/17/22 Date of Admission Time Seen by Provider: 14:54 Indication: Paroxysmal atrial fibrillation HPI 87 years old lady with history of hypertension, sustained a fall which resulted in large hematoma on her left leg, patient reported worsening symptoms with significant erythema. Eschar tissue on an open wound with significant pain. She was admitted for worsening symptoms and cellulitis. During her hospital stay she was noted to have episode of paroxysmal atrial tachycardia, On my evaluation patient was laying comfortably in bed, still having pain in her leg. No chest pain was reported. Patient was seen by Dr. Mccauley in [place] and transferring back to my practice in [place]. Home Medications & Allergies Allergies: Coded Allergies: No Known Drug Allergies (Unverified , 12/02/11) Home Medication List Reviewed: Yes [facility]H-Vgyrqz-Petxyj Hx Patient Social History Marital Status: Smoking Status: Former Smoker 2nd Hand Smoke Exposure: No Recent Hopitalizations: No Have you traveled recently?: No Alcohol Use?: No Immunizations Up To Date Date of Influenza Vaccine: Jul 11, 2022 Past Medical History Discussed below Family Medical History Significant Family History: No Pertinent Family Hx Review of Systems-General Review of Systems Constitutional: see HPI; No dizziness, No malaise, No weakness EENTM: No blurred vision, No mouth swelling, No epistaxis Respiratory: see HPI; No cough, No dyspnea on exertion, No short of breath Cardiovascular: see HPI; No chest pain; Hx of Intervention Gastrointestinal: see HPI; No abdominal pain, No nausea, No vomiting Genitourinary: see HPI; No dysuria, No frequency, No hematuria Musculoskeletal: joint pain, joint swelling, muscle stiffness Skin: see HPI, change in color; No change in hair/nails; other (hematoma) Psychiatric/Neurological: Denies Anxiety, Denies Depressed, Denies Seizure Reviewed Test Results Reviewed Test Results Lab Laboratory Tests Test 09/16/22 20:47 09/17/22 05:47 Range/Units White Blood Count 7.2 7.1 4.3-11.0 10^3/uL Red Blood Count 3.26 L 3.32 L 3.80-5.11 10^6/uL Hemoglobin 10.6 L 10.5 L 11.5-16.0 g/dL Hematocrit 31 L 32 L 35-52 % Mean Corpuscular Volume 94 96 80-99 fL Mean Corpuscular Hemoglobin 33 32 25-34 pg Mean Corpuscular Hemoglobin Concent 35 33 32-36 g/dL Red Cell Distribution Width 12.9 13.0 10.0-14.5 % Platelet Count 275 284 130-400 10^3/uL Mean Platelet Volume 8.6 L 8.7 L 9.0-12.2 fL Immature Granulocyte % (Auto) 0 0 % Neutrophils (%) (Auto) 60 54 42-75 % Lymphocytes (%) (Auto) 26 31 12-44 % Monocytes (%) (Auto) 11 11 0-12 % Eosinophils (%) (Auto) 2 2 0-10 % Basophils (%) (Auto) 1 0 0-10 % Neutrophils # (Auto) 4.4 3.9 1.8-7.8 10^3/uL Lymphocytes # (Auto) 1.9 2.2 1.0-4.0 10^3/uL Monocytes # (Auto) 0.8 0.8 0.0-1.0 10^3/uL Eosinophils # (Auto) 0.1 0.2 0.0-0.3 10^3/uL Basophils # (Auto) 0.0 0.0 0.0-0.1 10^3/uL Immature Granulocyte # (Auto) 0.0 0.0 0.0-0.1 10^3/uL Prothrombin Time 13.3 12.2-14.7 SEC INR Comment 1.0 0.8-1.4 Activated Partial Thromboplast Time 38 H 24-35 SEC D-Dimer 1.43 H 0.00-0.49 UG/ML Sodium Level 132 L 135 135-145 MMOL/L Potassium Level 4.1 3.8 3.6-5.0 MMOL/L Chloride Level 95 L 99 98-107 MMOL/L Carbon Dioxide Level 27 26 21-32 MMOL/L Anion Gap 10 10 5-14 MMOL/L Blood Urea Nitrogen 16 13 7-18 MG/DL Creatinine 0.81 0.78 0.60-1.30 MG/DL Estimat Glomerular Filtration Rate 70 73 BUN/Creatinine Ratio 20 17 Glucose Level 104 87 70-105 MG/DL Calcium Level 9.2 9.0 8.5-10.1 MG/DL Corrected Calcium 9.5 8.5-10.1 MG/DL Magnesium Level 1.7 1.6-2.4 MG/DL Total Bilirubin 0.7 0.1-1.0 MG/DL Aspartate Amino Transf (AST/SGOT) 25 5-34 U/L Alanine Aminotransferase (ALT/SGPT) 13 0-55 U/L Alkaline Phosphatase 99 40-136 U/L C-Reactive Protein 5.59 H <0.50 MG/DL Total Protein 6.9 6.4-8.2 GM/DL Albumin 3.6 3.2-4.5 GM/DL Radiology Date of Exam:09/17/22 US VENOUS LOWER EXT LT PROCEDURE: US left lower extremity venous. TECHNIQUE: Multiple Real-time grayscale images were obtained over the left lower extremity in various projections. Additional duplex Doppler and color Doppler images were also obtained. INDICATION: Left lower leg cellulitis, edema. COMPARISON: None. FINDINGS: The left common femoral vein, femoral vein, deep femoral vein, and popliteal vein are normal in appearance. These vessels show normal compressibility, color flow, and Doppler augmentation. The visualized deep calf veins demonstrate no distinct intraluminal thrombus. IMPRESSION: No sonographic evidence of deep venous thrombosis in the left lower extremity. Preliminary findings were reported to the patient's nurse by the loan clerk following the examination. Dictated by: Dictated on workstation # [id number] Dict: 09/17/22 1045 Trans: 09/17/22 1128 [id number] Interpreted by: DAVIS ASHER MD Electronically signed by: DAVIS ASHER MD 09/17/22 1128 Physical Exam Physical Exam Vital Signs Vital Signs - First Documented 09/16/22 09/16/22 09/17/22 20:17 22:59 01:50 Temp 37.2 Pulse 66 Resp 18 B/P (MAP) 125/82 (96) Pulse Ox 97 O2 Delivery Room Air FiO2 21 Capillary Refill : Less Than 3 Seconds Height, Weight, BMI Height: '" Weight: lbs. oz. kg; 29.09 BMI Method: General Appearance: No Apparent Distress, WD/WN Eyes: Bilateral Eye PERRL, Bilateral Eye EOMI HEENT: PERRL/EOMI Neck: Full Range of Motion, Normal Inspection Respiratory: Lungs Clear, Normal Breath Sounds Cardiovascular: Regular Rate, Rhythm Gastrointestinal: Non Tender, Soft Extremity: Normal Range of Motion, Calf Tenderness, Pedal Edema (Nonpitting edema of her left leg with swelling extending from lower part of thigh to her foot, with extensive hematoma formation, ecchymosis, mild tenderness, not warm to touch.) Neurologic/Psychiatric: Alert, Oriented x3, Normal Mood/Affect Skin: Ecchymosis (of left ), Other (Extensive ecchymosis of left leg , N/V bundle intact) A/P-Cardiology Admission Diagnosis Cellulitis Coronary artery disease Hypertension Hyperlipidemia Assessment/Plan Cellulitis of the left leg with erythema and hematoma. Questionable underlying compartment syndrome, surgical consult was called Continue to monitor Paroxysmal atrial fibrillation. Patient has history of paroxysmal atrial fibrillation, currently in sinus rhythm Review of the Holter monitor showed few episodes of short atrial fibrillation, continue to monitor, currently in sinus rhythm Coronary artery disease History of acute myocardial infarction in October 2019 with total occlusion of the right coronary artery with heavy thrombus burden, had to stent deployment using Annie 3.5 x 23 and 3.5 x 12 mm expanded to 4 mm within the right coronary artery Underwent a second intervention at [facility] on November 15, 2019 with deployment of Promus Premier 2.5 x 12 mm to the mid LAD with excellent results. Thoracic aortic aneurysm, involving the ascending aorta measuring 4.[address] scan done in November 2019. Congestive heart failure, chronic left ventricular systolic dysfunction, last echocardiogram showed improvement in the contractibility with normal ejection fraction continue to monitor History of frequent PVCs, ventricular bigeminy and runs of nonsustained ve ntricular tachycardia has been on amiodarone which was stopped based on patient request. History of right leg and foot discomfort with feeling cold, YUVAL was done in November 2019 and it was normal bilaterally with slightly abnormal TBI. Mild bilateral carotid stenosis nonobstructive disease. Continue to monitor Hypertension, restart home medication monitor blood pressure Hyperlipidemia, monitor lipids Chronic kidney disease stage IIIa. ZULLY CRANE MD Sep 17, 2022 15:50
[2022-09-17] MEDS ORDERED: FUROSEMIDE 20 MG (LASIX) TAB ONE (20:09)
[2022-09-17] MEDS: DOCUSATE SODIUM 100 MG (COLACE) CAP PO SCH (20:12)
[2022-09-17] MEDS ORDERED: polyethylene glycoL POWDER 17 GM (MIRALAX) PACK PO PRN (20:30)
[2022-09-17] MEDS ORDERED: ASPIRIN E.C. 81 MG (ECOTRIN) TAB PO SCH (21:00)
[2022-09-17] MEDS ORDERED: FUROSEMIDE 20 MG (LASIX) TAB PO SCH (21:00)
[2022-09-18 05:02] VITALS: BP 126/59
[2022-09-18] MEDS: CATHETER FLUSH 10 ML SYR IVP SCH ×2 (05:21→13:38)
[2022-09-18] MEDS: ceFAZolin INJECTION 1,000 MG VIAL IV SCH ×2 (05:21→13:38)
[2022-09-18 05:46] LABS: HEMATOCRIT 30 % (35-52); MEAN CORPUSCULAR HEMOGLOBIN 32 pg (25-34); MEAN CORPUSCULAR HGB CONC 33 g/dL (32-36); MEAN CORPUSCULAR VOLUME 96 fL (80-99); MEAN PLATELET VOLUME 8.9 fL (9.0-12.2); PLATELET COUNT 289 10^3/uL (130-400); WHITE BLOOD COUNT 6.7 10^3/uL (4.3-11.0)
[2022-09-18 05:56] LABS: POTASSIUM 3.8 MMOL/L (3.6-5.0)
[2022-09-18 05:57] LABS: CALCIUM 8.7 MG/DL (8.5-10.1)
[2022-09-18 06:01] LABS: CREATININE SERUM 0.77 MG/DL (0.60-1.30)
[2022-09-18] MEDS ORDERED: MULTIVIT W/MINERALS TAB (THERAGRAN M) PO SCH (07:00)
[2022-09-18 07:23] VITALS: BP 161/70
--- NOTE | 2022-09-18 07:51 | Cardiology Progress Note ---
Subjective Date Seen by Provider: Sep 18, 2022 Time Seen by Provider: 07:55 Subjective/Events-last exam Patient was awake and alert in bed when seen this morning. She continues to have the LLE leg wound and rates her pain this morning as 4/10 pain. No Surgical incision/debridement was performed yesterday. She is ready for the leg to feel better but has no other concerns or questions at this time. No chest pain, palpitations,or SOB. Review of Systems General: No Chills, No Fatigue HEENT: No Head Aches, No Visual Changes Pulmonary: No Dyspnea, No Cough Cardiovascular: No: Chest Pain, Palpitations Gastrointestinal: No: Nausea, Vomiting, Abdominal Pain, Diarrhea Genitourinary: No Dysuria, No Hematuria Musculoskeletal: leg pain (LLE from wound) Neurological: No: Weakness, Numbness, Change in speech, Confusion Objective-Cardiology Exam Last Set of Vital Signs Vital Signs 09/17/22 09/18/22 09/18/22 01:50 11:16 13:11 Temp 36.8 Pulse 62 Resp 20 B/P (MAP) 142/68 (92) Pulse Ox 91 O2 Delivery Room Air FiO2 21 I&O Intake and Output 09/18/22 00:00 Intake Total 1390 ml Output Total 4 ml Balance 1386 ml Intake Oral 1390 ml Output Urine Total 4 ml # Voids 3 Daily Weight Change No General: Alert, Oriented X3, Cooperative, No Acute Distress HEENT: Atraumatic, PERRLA, EOMI Neck: Supple, No JVD, No Thyromegaly Lungs: Clear to Auscultation, Normal Air Movement Heart: Regular Rate, Normal S1, Normal S2 Abdomen: Normal Bowel Sounds, Soft, No Tenderness, No Masses Extremities: No Clubbing, No Cyanosis, No Edema, Normal Pulses, Other (Large hematoma on Smith of LLE with surrounding erythema echymosis. Unchanged since yesterday.) Skin: No Rashes Neuro: Normal Speech, Normal Tone, Sensation Intact Psych/Mental Status: Mental Status NL Results Lab Laboratory Tests 09/18/22 05:25 A/P-Cardiology Admission Diagnosis Cellulitis Coronary artery disease Hypertension Hyperlipidemia Assessment/Plan Cellulitis of the left leg with erythema and hematoma. Surgery was consulted yesterday. No debridement or incision has been performed. Wound appears unchanged since yesterday. Continue to monitor. On cefazolin at this time. Paroxysmal atrial fibrillation. Patient has history of paroxysmal atrial fibrillation, currently in sinus rhythm Review of the Holter monitor showed few episodes of short atrial fibrillation, continue to monitor, currently in sinus rhythm Hold Aspirin and Lovenox given large hematoma of LLE. [id number] score of 6 Coronary artery disease History of acute myocardial infarction in October 2019 with total occlusion of the right coronary artery with heavy thrombus burden, had to stent deployment using Annie 3.5 x 23 and 3.5 x 12 mm expanded to 4 mm within the right coronary artery Underwent a second intervention at [facility] on November 15, 2019 with deployment of Promus Premier 2.5 x 12 mm to the mid LAD with excellent results. Hypertension Currently on Losartan 50mg QD. BP appears mostly well controlled with occasional episodes >140/90mmHg. BP this morning was 161/70mmHg. Not symptomatic. Will monitor for now and consider increasing dose if BP continues to be elevated. Thoracic aortic aneurysm, involving the ascending aorta measuring 4.[address] scan done in November 2019. Congestive heart failure, chronic left ventricular systolic dysfunction, last echocardiogram showed improvement in the contractibility with normal ejection fraction continue to monitor History of frequent PVCs, ventricular bigeminy and runs of nonsustained ventricular tachycardia has been on amiodarone which was stopped based on patient request. History of right leg and foot discomfort with feeling cold, YUVAL was done in November 2019 and it was normal bilaterally with slightly abnormal TBI. Mild bilateral carotid stenosis nonobstructive disease. Continue to monitor Hyperlipidemia, monitor lipids, consider starting a statin given history of CAD. History of Chronic kidney disease stage IIIa. Today Cr of .77 with GFR of 74. Supervisory-Addendum Brief Verification & Attestation Participated in pt care: history, MDM, physical Personally performed: exam, history, MDM, supervision of care Care discussed with: Medical Student Procedures: n/a Results interpretation: Verified all documentation Verification and Attestation of Medical Student E/M Service A medical student performed and documented this service in my presence. I reviewed and verified all information documented by the medical student and made modifications to such information, when appropriate. I personally performed the physical exam and medical decision making. Patient was seen and evaluated, ready for discharge Underwent procedure on her leg. Okay for discharge I agree with discontinuation of the aspirin, Plavix, hold any anticoagulation at this point due to the hematoma Patient will require to be on aspirin in the future Regarding oral anticoagulation at this time she cannot tolerate it. We will address it as an outpatient. Arrange for follow-up in 2 weeks in my office. Tiffanie Wilson, Sep 18, 2022,16:27 JUAN HENAO Sep 18, 2022 07:51 TIFFANIE WILSON MD Sep 18, 2022 16:42
[2022-09-18] MEDS: DOCUSATE SODIUM 100 MG (COLACE) CAP PO SCH (08:03)
--- NOTE | 2022-09-18 08:24 | Progress Note - Surgery ---
MARIOROMANROBERTA Reynolds 09/18/22 0824: Subjective Date Seen by a Provider: Sep 18, 2022 Time Seen by a Provider: 08:19 Subjective/Events-last exam Pt is resting comfortably in bed with L leg propped up on pillow. Pt states that she is feeling better today and that her pain has improved from yesterday. At rest pain is a 3/10 and with ambulation pain increases to a 6/10. Pt feels that her pain has been well controlled with her current pain medications. Pt states that she was able to ambulate yesterday without issue. Pt was seen by wound care yesterday but they were unable to drain to hematoma and have deferred to us. Per nurse, pt's leg circumference was 37cm, which has not changed from yesterday. Pt has been tolerating diet and drinking. Pt has been voiding but notes that she has not had a BM. Pt states that she normally takes 3 stool softeners at night and 2 in the morning to help with her BMs but has not received any since admiss ion. Pt states that she would like to go home and is tearful in the room stating that she would like to go home. Pt had a doppler of the LLE that was negative for DVT. Pt has no other complaints. Pt denies CP, SOB, abd pain, diarrhea, nausea, vomiting, and WINTERS. Review of Systems General: No Chills, No Night Sweats HEENT: No Head Aches, No Eye Pain Pulmonary: No Dyspnea, No Cough Cardiovascular: No: Chest Pain, Lt Headedness Gastrointestinal: Constipation; No: Nausea, Vomiting, Abdominal Pain, Diarrhea Genitourinary: No Dysuria Musculoskeletal: leg pain; No: neck pain, shoulder pain Neurological: No: Weakness, Numbness Objective Exam Vital Signs Date Time Temp Pulse Resp B/P (MAP) Pulse Ox O2 Delivery O2 Flow Rate FiO2 09/18/22 07:23 36.3 61 18 161/70 (100) 97 Room Air 09/18/22 05:02 36.6 67 20 126/59 (81) 95 Room Air 09/18/22 01:00 63 09/17/22 23:14 37.0 62 20 134/73 (93) 94 Room Air 09/17/22 22:17 93 Room Air 09/17/22 20:15 Room Air 09/17/22 20:01 37.1 73 18 124/60 (81) 93 Room Air 09/17/22 19:00 81 09/17/22 16:20 36.8 60 18 136/63 (87) 98 Room Air 09/17/22 13:23 57 09/17/22 12:47 67 09/17/22 11:41 37.1 58 18 191/85 (120) 96 Room Air I & O 09/18/22 07:00 Intake Total 1890 ml Output Total 4 ml Balance 1886 ml Capillary Refill : Less Than 3 Seconds General Appearance: No Apparent Distress, WD/WN HEENT: PERRL/EOMI Respiratory: Lungs Clear, Normal Breath Sounds, No Accessory Muscle Use, No Respiratory Distress Cardiovascular: Regular Rate, Rhythm, No Murmur Peripheral Pulses: 2+ Dorsalis Pedis (R), 2+ Left Dors-Pedis (L) Gastrointestinal: non tender, soft Extremity: Calf Tenderness (diffuse tenderness overlying the LLE due to wound on the anterior lateral aspect of the estrella ), Swelling (Nonpitting edema of her left leg with swelling extending around the from below the knee to just above the foot, with extensive hematoma formation, ecchymosis, tenderness, not warm to touch.) Neurologic/Psychiatric: Alert, Oriented x3, Normal Mood/Affect Skin: Warm/Dry, Ecchymosis (of LLE), Erythema (Surrounding wound/hematoma on the LLE on the anterior lateral aspect of the estrella, improved from yesterday), Other (Extensive ecchymosis of left leg, some blood oozing from just below scab ) Results Lab Laboratory Tests 09/18/22 05:25: White Blood Count 6.7, Red Blood Count 3.12L, Hemoglobin 10.0L, Hematocrit 30L, Mean Corpuscular Volume 96, Mean Corpuscular Hemoglobin 32, Mean Corpuscular Hemoglobin Concent 33, Red Cell Distribution Width 13.0, Platelet Count 289, Mean Platelet Volume 8.9L, Sodium Level 134L, Potassium Level 3.8, Chloride Level 100, Carbon Dioxide Level 24, Anion Gap 10, Blood Urea Nitrogen 14, Creatinine 0.77, Estimat Glomerular Filtration Rate 74, BUN/Creatinine Ratio 18, Glucose Level 87, Calcium Level 8.7 Radiology NAME: TANIA ART REC#: [id number] PT STATUS: ADM Annette : 1935 PHYSICIAN: VERNA POSADAS MD ADMIT DATE: 09/16/22 Signed Date of Exam:09/17/22 US VENOUS LOWER EXT LT PROCEDURE: US left lower extremity venous. TECHNIQUE: Multiple Real-time grayscale images were obtained over the left lower extremity in various projections. Additional duplex Doppler and color Doppler images were also obtained. INDICATION: Left lower leg cellulitis, edema. COMPARISON: None. FINDINGS: The left common femoral vein, femoral vein, deep femoral vein, and popliteal vein are normal in appearance. These vessels show normal compressibility, color flow, and Doppler augmentation. The visualized deep calf veins demonstrate no distinct intraluminal thrombus. IMPRESSION: No sonographic evidence of deep venous thrombosis in the left lower extremity. Preliminary findings were reported to the patient's nurse by the television maintenance man following the examination. Dictated by: Dictated on workstation # [id number] Dict: 09/17/22 1045 Trans: 09/17/22 1128 [id number] Interpreted by: DAVIS ASHER MD Electronically signed by: DAVIS ASHER MD 09/17/22 1128 Assessment/Plan Assessment/Plan Assessment/Plan LLE Hematoma Fluctuance under area in LLE Ischemic tissue vs Scab Large ecchymosis over LLE Pt was seen by wound care yesterday but hematoma was not drained. Erythema of wound has improved but is oil process stillman and fluctuant near wound. There is some blood oozing from scab. Will assess wound later to see if it needs to be drained. Doppler of LLE showed no evidence of DVT. Continue pain medications and abx. Will continue to monitor GUERDALINDAZENON Marcial DO 09/18/22 1004: Subjective Time Seen by a Provider: 09:05 Subjective/Events-last exam Pt seen and examined, states she wants to go home. She does admit to still having moderate pain in the left leg. Tolerating diet and pain mostly controlled. Review of Systems General: No Chills, No Night Sweats Pulmonary: No Dyspnea, No Cough Cardiovascular: No: Chest Pain Gastrointestinal: Constipation; No: Nausea, Vomiting, Abdominal Pain Genitourinary: No Dysuria Musculoskeletal: leg pain Objective Exam General Appearance: No Apparent Distress, WD/WN HEENT: PERRL/EOMI Respiratory: Lungs Clear, Normal Breath Sounds, No Accessory Muscle Use, No Respiratory Distress Cardiovascular: Regular Rate, Rhythm, No Murmur Extremity: Calf Tenderness (diffuse tenderness overlying the LLE due to wound on the anterior lateral aspect of the estrella ), Swelling (Nonpitting edema of her left leg with swelling extending around the from below the knee to just above the foot, with extensive hematoma formation, ecchymosis, tenderness, not warm to touch.) Skin: Ecchymosis (of LLE), Erythema (Surrounding wound/hematoma on the LLE on the anterior lateral aspect of the estrella, improved from yesterday), Other (Extensive ecchymosis of left leg, some blood oozing from just below scab ) Assessment/Plan Assessment/Plan Assessment/Plan LLE Hematoma Fluctuance under area in LLE Ischemic tissue vs Scab Large ecchymosis over LLE Pt was seen by wound care yesterday but hematoma was not drained. Erythema of wound has improved but is oil process stillman and fluctuant near wound. There is some blood oozing from scab. Doppler of LLE showed no evidence of DVT. Continue pain medications and abx. I did an I&D at the bedside with the pt's permission; only found jelly-like hematoma. Did not drain out very much. Pt ok to go home, but will have wound care come by to make a recommendation. Supervisory-Addendum Brief Verification & Attestation Participated in pt care: history, MDM, physical Personally performed: exam, history, MDM, supervision of care Care discussed with: Medical Student Procedures: n/a Verification and Attestation of Medical Student E/M Service A medical student performed and documented this service. I then reviewed and verified all information documented by the medical student and made modifications to such information, when appropriate. I personally performed a physical exam, medical decision making and then discussed any differences between the notes and made revisions as necessary to create one note. Zenon Harvey , 09/18/22 , 10:04 ROBERTA LUIS Sep 18, 2022 08:24 ZENON HARVEY DO Sep 18, 2022 10:04
[2022-09-18] MEDS ORDERED: LOSARTAN 50 MG (COZAAR) TAB PO SCH (09:00)
[2022-09-18] MEDS ORDERED: MULTIVITAMIN WITH MINERALS PO SCH (09:00)
[2022-09-18] MEDS: ACETAMINOPHEN 325 MG TABLET PO PRN (09:09)
[2022-09-18] MEDS ORDERED: HYPOCHLOROUS ACID/NaCl (VASHE) 250 ML IR PRN (09:45)
--- NOTE | 2022-09-18 10:08 | Progress Note-Post Operative ---
Post-Operative Progess Note Surgeon (s)/River [employer] Worker (s) Surgeon ZENON HARVEY DO [employer] Worker: none Pre-Operative Diagnosis LLE cellulitis with swelling possible abscess Post-Operative Diagnosis LLE cellulitis and hematoma Procedure & Operative Findings Date of Procedure 09/18/22 Procedure Performed/Findings I&D of LLE Anesthesia Type none Estimated Blood Loss Estimated blood loss (mL): none Specimens/Packing Specimens Removed old hematoma, not sent to path Packin ZENON HARVEY DO Sep 18, 2022 10:08
[2022-09-18 11:16] VITALS: BP 142/68
--- NOTE | 2022-09-18 11:20 | Wound Care Assessment ---
Wound Care Assessment Date Seen by Provider: Sep 18, 2022 Time Seen by Provider: 10:25 Chief Complaint Leg wound HPI Ms. Jeffers is an 87 year old female who presented to the ED OCT 03 s/p fall a week prior. Wound care was consulted s/p hematoma evacuation (see op note per Dr. Mortensen for full details). Patient fell down wooden steps and hit her left estrella. She did not seek immediate treatment but did report pain. She came to the ED when the pain and swelling got worse. She is on clopidogrel and aspirin. Patient reports that after her I&D her pain has improved but she is till tender. She is able to bear weight but it is painful. Plain films of her femur, tibia, and fibula show no acute osseous abnormality but confirmed the presence of a hematoma. Doppler showed no evidence of a DVT. On exam, she was noted to have a large fluctuant area with necrotic epithelium atop. Inferiorly with [id number] area opened with coagulated blood. Upon probing with Qtip noted to have at least 12 cm tracking to superior edge of necrotic skin. I am unable to assess the depth at the distant areas. It is also impossible to ascertain if active bleeding is still present. Patient notes that she halted evacuation due to pain earlier with Dr. Mortensen. PMHx CAD with stenting Known AFIB Smoking Status: Former Smoker Review of Systems General: No Chills, No Fatigue Pulmonary: No Dyspnea, No Cough Cardiovascular: No: Chest Pain, Palpitations Gastrointestinal: No: Nausea, Vomiting Musculoskeletal: leg pain; No: foot pain Exam Vital Signs Date Time Temp Pulse Resp B/P (MAP) Pulse Ox O2 Delivery O2 Flow Rate FiO2 09/18/22 09:09 Room Air 09/18/22 07:31 54 09/18/22 07:23 36.3 18 161/70 (100) 97 09/17/22 01:50 21 Capillary Refill : Less Than 3 Seconds General Appearance: WD/WN, no apparent distress HEENT: No pale conjunctivae (R), No pale conjunctivae (L) Cardiovascular: normal peripheral pulses, regular rate, rhythm Respiratory: lungs clear, normal breath sounds, no respiratory distress, no accessory muscle use Extremities: inflammation, pedal edema, swelling Neurologic/Psychiatric: alert, normal mood/affect, oriented x 3 Skin: ecchymosis; No pallor Skin Problem Location: lower extremities (Left) Wound is on anterior left estrella approximately 5 cm proximal to the distal tibia. Open area measures 2 x 2.1 x 1.9 cm. There is tunneling at least 12 cm at 12 o'clock and undermining from 5-7 of 1.5 cm Necrotic is large and eschar and fluctuant. There is no granulation. There is no epithelialization. Margins are flat. Drainage is large and sanguineous, congealed without active bleeding. Some dark uncoagulated blood noted as well. Extensive bruising is present from patient's toes on left foot to distal posterior thigh, proximal to the popliteal fossa. Results Laboratory Tests 09/18/22 05:25: White Blood Count 6.7, Red Blood Count 3.12L, Hemoglobin 10.0L, Hematocrit 30L, Mean Corpuscular Volume 96, Mean Corpuscular Hemoglobin 32, Mean Corpuscular Hemoglobin Concent 33, Red Cell Distribution Width 13.0, Platelet Count 289, Mean Platelet Volume 8.9L, Sodium Level 134L, Potassium Level 3.8, Chloride Level 100, Carbon Dioxide Level 24, Anion Gap 10, Blood Urea Nitrogen 14, Creatinine 0.77, Estimat Glomerular Filtration Rate 74, BUN/Creatinine Ratio 18, Glucose Level 87, Calcium Level 8.7 Assessment/Plan/Dx Left lower extremity hematoma s/p I&D OCT [address] Mortensen Patient okay to d/c per surgery recommendations No evidence of acute osseous abnormalities Left lower extremity ecchymoses and bruising Anemia 1. Defer discharge plan to primary team 2. Washed wound with Vasche wound equipment cleaner and tester and covered open area with Aquacel. Wrapped with gauze and an LUÍS wrap. Patient will need QD dressing changes. She will have home health upon discharge and it is unlikely the patient can manage more than daily dressing changes (a vashe WTD bid would provide some debridement with dressing changes but this is not an option with current living situation). 3. Plan for home health for wound changes. Patient does not want to do it herself and family does not live close enough. 4. Patient plans to follow with wound care in [place] with Dr. Alan as this is closer to her home. I did call Dr. Alan to discuss case. 5. I am highly suspicious that the necrotic area will open and that the hematoma underlying this skin is extensive. There still may be active bleeding as well with aspirin and plavix that is tamponaded currently with coagulated blood currently. Full evacuation would be ideal but this is not currently safe at bedside and also quite painful. Patient requesting to leave [facility]. This could certainly be performed as an outpatient as well and she does have follow up with Dr. Mortensen already planned. Surgical decisions at his discretion. There is risk for infection in future and it may open on its own. Regardless, this will likely take months to heal with regular wound care follow up. Supervisory-Addendum Brief Verification & Attestation Participated in pt care: history, MDM, physical Personally performed: exam, history, MDM, supervision of care Care discussed with: Medical Student Procedures: n/a Results interpretation: Verified all documentation DAIJA Lee Sep 18, 2022 11:20 ARRON BARRAZA MD Sep 18, 2022 16:16
[2022-09-18] MEDS ORDERED: CEPH500T PO (15:03)
[2022-09-18] MEDS ORDERED: LOSA50TA63 PO (15:03)
--- NOTE | 2022-09-18 15:05 | D/C HH Face to Face Order ---
D/C Face to Face Orders Instructions for Patient Patient Instructions/FollowUp: Follow up with Dr. Wilson within 2 weeks Follow up with Primary physician within a week. Physician to follow Patient: YARELISEIgnacio Discharge Diet for Home: Cardiac Diet Patient Data-Allergies,Ht & Wt Patient Allergies: Coded Allergies: No Known Drug Allergies (Unverified , 12/02/11) Home Health Need/Face to Face Date of Face to Face: Sep 18, 2022 Clinical Findings: Pain with ambulation I have seen Pt [id number]: Yes Discharged To: Home Diagnosis/Conditions: Infected hematoma Cellulitis Atrial fibrillation HTN Patient is Homebound due to: Pain w/ambulation Homebound Status Due to the above stated illness, injury or surgical procedure (medical condition or diagnosis) and associated clinical findings, the patient is homebound because of his/her inability to leave home except with aid of a supportive device and/or person AND leaving the home requires a considerable and taxing effort or is medically contraindicated. Pt req the following assistanc: Aid of another person Home Health Nursing Orders Home Health Services Order: Nursing Services, Wound Care-Eval/Treat WOUND CARE- LEFT LOWER EXTREMITY 1. CLEANSE WOUND WITH VASHE. 2. APPLY AQUACEL AG INTO OPEN, DEEP WOUND BED BASE, UNTIL FILLED TO TOP OF SKIN. 3. COVER WITH DRY GAUZE. 4. WRAP WITH KERLIX. 5. WRAP WITH LUÍS BANDAGE. CHANGE DAILY. Home Health Infusion Therapy Line Start Date: Sep 16, 2022 Certify Stmt I certify that this patient is under my care and that I, a nurse practitioner or a physician; a environmental emergencies assistant working with me, had a face to face encounter that - meets the physician face to face encounter requirements with this patient as dated. VERNA POSADAS MD Sep 18, 2022 15:05
--- NOTE | 2022-09-18 15:06 | Discharge Summary ---
Discharge Summary Hospital Course Problems/Diagnosis: (1) Cellulitis of left lower extremity Status: Acute Assessment & Plan: Cefazolin started in ER, pt reports improvement. Markedly large hematoma with dark area concerning for possible need for debridement, Surgery consulted, opened distal end and removed some old blood. Wound care consulted and did feel entire hematoma may need evacuated and expect large cavity will be left behind with expectation of months required to heal. Surgery did not want to drain at this time, will continue to follow and consider outpatient if needed. (2) Hematoma Status: Acute Assessment & Plan: Secondary to injury, now infected, see above. (3) Atrial fibrillation Status: Acute Assessment & Plan: Patient does not recall history of a fib, has had CAD with stenting and was on amiodarone in the past but she isn't sure why. Cardiology consulted, appreciate recommendations. Hesitant to start anticoagulation given marked hematoma with large ecchymosis and some bleeding with light touch. Qualifiers: Qualified Codes: I48.0 - Paroxysmal atrial fibrillation (4) Coronary artery disease Qualifiers: Qualified Codes: I25.10 - Atherosclerotic heart disease of ho-chunk coronary artery without angina pectoris (5) Hyponatremia Status: Acute Assessment & Plan: Improved, suspect due to poor intake with nausea and poor appetite due to infection. (6) Elevated d-dimer Status: Acute Assessment & Plan: Venous doppler negative. Hospital Course Date of Admission: Sep 16, 2022 at 23:59 Admission Diagnosis : Family Physician/Provider: Aaron Aguilar MD Date of Discharge: 09/18/22 Discharge Diagnosis: See problem list Hospital Course: 87 yo female admitted after she hit her estrella against a step after slipping, developed large hematoma which then became infected. See problem list for treatment and plans. Labs and Pending Lab Test: Laboratory Tests 09/18/22 05:25: White Blood Count 6.7, Red Blood Count 3.12L, Hemoglobin 10.0L, Hematocrit 30L, Mean Corpuscular Volume 96, Mean Corpuscular Hemoglobin 32, Mean Corpuscular Hemoglobin Concent 33, Red Cell Distribution Width 13.0, Platelet Count 289, Mean Platelet Volume 8.9L, Sodium Level 134L, Potassium Level 3.8, Chloride Level 100, Carbon Dioxide Level 24, Anion Gap 10, Blood Urea Nitrogen 14, Creatinine 0.77, Estimat Glomerular Filtration Rate 74, BUN/Creatinine Ratio 18, Glucose Level 87, Calcium Level 8.7 Home Meds Active Cephalexin 500 Mg Tablet 500 Mg PO TID 7 Days Losartan Potassium 50 Mg Tablet 50 Mg PO DAILY Reported Aspirin EC (Aspirin) 81 Mg Tablet.dr 81 Mg PO HS Docusate Sodium 100 Mg Capsule 300 Mg PO HS TAKES 3 (100MG) CAPS Hair, Skin & Nails (Multivitamin with Minerals) 1 Each Tablet 1 Each PO DAILY Red Yeast Rice 600 Mg Capsule 600 Mg PO BID Potassium Chloride 10 Meq Tab.er.prt 10 Meq PO HS Furosemide 20 Mg Tablet 20 Mg PO HS Docusate Sodium 100 Mg Capsule 200 Mg PO DAILY TAKES 2 (100MG) CAPS One Daily Complete (Multivitamin with Minerals) 1 Each Tablet 1 Ea PO DAILY Assessment/Pt DC Instructions Follow up with primary physician within a week of discharge. Follow up with Dr. Alan for wound care for leg. Follow up with Dr. Mortensen (Surgery) as directed. Activity as Tolerated: Yes Discharge Physical Examination Allergies: Coded Allergies: No Known Drug Allergies (Unverified , 12/02/11) General Appearance: No Apparent Distress, WD/WN Respiratory: Lungs Clear, Normal Breath Sounds Cardiovascular: Regular Rate, Rhythm Gastrointestinal: Normal Bowel Sounds, Non Tender, Soft Skin: Other (leg wrapped, no drainage on bandage) Neurologic/Psychiatric: Alert, Normal Mood/Affect VERNA POSADAS MD Sep 18, 2022 15:06
--- NOTE | 2022-09-18 15:43 | OPERATIVE REPORT ---
PREOPERATIVE DIAGNOSES: Left lower extremity cellulitis with swelling and possible abscess. POSTOPERATIVE DIAGNOSES: Left lower extremity cellulitis and hematoma. PROCEDURE PERFORMED: Incision and drainage of left lower extremity hematoma. SURGEON: Andres Mortensen DO. AGRICULTURE WORKER: None. ANESTHESIA: None. BLOOD LOSS: None. FLUIDS: None. SPECIMENS: Portion of old hematoma, not sent to path. DESCRIPTION OF PROCEDURE: The patient was in her bed. She was prepped just with a little bit of alcohol over the lower portion of the scab and then using scissors, cut out an approximately 3 x 3 cm portion of the lower scab on this and saw what looked like jelly blood. This is old hematoma. There was no purulence. Attempted to squeeze some of this out by pushing from the top down. This caused some severe pain. The patient did get a little bit more of the hematoma out, tried to flush a little bit with saline and at this point because the patient having pain, I elected to stop. The patient otherwise tolerated the procedure and we will try to do some wound care and some flushing as an outpatient. Job ID: [id number] DocumentID: [id number] Dictated Date: 09/18/2022 10:08:20 Drugless Physician Date: 09/18/2022 15:41:00 Dictated By: ANDRES MORTENSEN DO
[2022-09-18 16:00] VITALS: BP 151/71
[2022-09-18] MEDS ORDERED: TRM50T PO (17:23)
[2022-09-18 18:44] VITALS: BP 151/71
[2022-09-18] MEDS ORDERED: KCL 10 MEQ TAB (MICRO K) PO SCH (21:00)
== END 2022-09-18 18:44 | disposition home health service (06) ==
LOC: EDUNIT# 20:14 → ER FS 20:15 → 4TH 23:59
PROVIDERS: ADMIT Family Medicine; ATTEND Family Medicine
DX: L03.116 Cellulitis of left lower limb (principal); S80.12XA Contusion of left lower leg, initial encounter; M79.81 Nontraumatic hematoma of soft tissue; I48.0 Paroxysmal atrial fibrillation; I99.8 Other disorder of circulatory system; I25.10 Atherosclerotic heart disease of native coronary artery without angina pectoris; E87.1 Hypo-osmolality and hyponatremia; M79.89 Other specified soft tissue disorders; I71.21 Aneurysm of the ascending aorta, without rupture; I13.0 Hypertensive heart and chronic kidney disease with heart failure and stage 1 through stage 4 chronic kidney disease, or unspecified chronic kidney disease; I50.22 Chronic systolic (congestive) heart failure; I65.23 Occlusion and stenosis of bilateral carotid arteries; N18.31 Chronic kidney disease, stage 3a; E78.5 Hyperlipidemia, unspecified; I49.3 Ventricular premature depolarization; W01.0XXA Fall on same level from slipping, tripping and stumbling without subsequent striking against object, initial encounter; Y93.A3 Activity, aerobic and step exercise; Z87.891 Personal history of nicotine dependence
CPT/HCPCS: 10140; 36415; 73552; 73590; 80048 ×2; 80053; 83735; 85025 ×2; 85027; 85379; 85610; 85730; 86141; 93005; 93971; 94760 ×2; 96372; 96376 ×2; 99283; G0378

== ENCOUNTER 2022-10-02 06:57 | Day surgery (SDC) | payer MEDICARE ==
[~2022-10-02] VITALS: Ht 154.9 cm; Wt 62.8 kg
[2022-10-02] VITALS (10 sets, daily range): BP systolic 96–146; BP diastolic 59–82
[~2022-10-02 06:57] MED LIST changes: +CEPH500T PO; +FURO20TA4 PO; +LOSA50TA63 PO; +MULT-1054 PO; +POTA-177 PO; +RED600CA2 PO; +TRM50T PO
[2022-10-02] MEDS ORDERED: HEParin (CATH LAB) 2,000 ML IV ONE (07:07)
[2022-10-02] MEDS ORDERED: LIDOCAINE 1% INJ 30 ML (XYLOCAINE) VIAL ONE (07:07)
[2022-10-02] MEDS ORDERED: NS IV 1000 ML 1,000 ML ONE (07:07)
[2022-10-02] MEDS ORDERED: NS IV 1000 ML 1,000 ML IV SCH ×2 (07:15→09:00)
[2022-10-02 07:32] LABS: HEMATOCRIT 38 % (35-52); HEMOGLOBIN 12.3 g/dL (11.5-16.0); MEAN CORPUSCULAR HEMOGLOBIN 32 pg (25-34); MEAN CORPUSCULAR HGB CONC 33 g/dL (32-36); MEAN CORPUSCULAR VOLUME 96 fL (80-99); MEAN PLATELET VOLUME 8.1 fL (9.0-12.2); PLATELET COUNT 476 10^3/uL (130-400); WHITE BLOOD COUNT 7.5 10^3/uL (4.3-11.0)
[2022-10-02 07:33] LABS: BILIRUBIN,URINE NEGATIVE (NEGATIVE); CLARITY,URINE CLEAR; COLOR,URINE YELLOW; GLUCOSE, URINE (UA) NEGATIVE (NEGATIVE); KETONES,URINE NEGATIVE (NEGATIVE); LEUKOCYTE ESTERASE ,URINE 1+ (NEGATIVE); NITRITE,URINE NEGATIVE (NEGATIVE); PH,URINE 5.5 (5-9); PROTEIN,URINE NEGATIVE (NEGATIVE)
[2022-10-02 07:42] LABS: BACTERIA,URINE TRACE /HPF; WBC,URINE 0-2 /HPF
[2022-10-02 07:43] LABS: ALBUMIN 3.3 GM/DL (3.2-4.5); POTASSIUM 3.5 MMOL/L (3.6-5.0)
[2022-10-02 07:45] LABS: CALCIUM 9.2 MG/DL (8.5-10.1)
[2022-10-02 07:46] LABS: INR 1.1 (0.8-1.4); PROTHROMBIN TIME PATIENT 14.4 SEC (12.2-14.7); TOTAL PROTEIN 6.8 GM/DL (6.4-8.2)
[2022-10-02] MEDS ORDERED: GINK60TA2 PO (07:47)
[2022-10-02] MEDS ORDERED: MTP25TSR PO (07:47)
[2022-10-02] MEDS ORDERED: LOSA50TA63 PO (07:47)
[2022-10-02] MEDS ORDERED: DOXY100C5 PO (07:47)
[2022-10-02 07:48] LABS: BILIRUBIN,TOTAL 0.7 MG/DL (0.1-1.0)
[2022-10-02 07:50] LABS: CREATININE SERUM 0.76 MG/DL (0.60-1.30)
[2022-10-02] MEDS ORDERED: MIDAZOLAM 5 MG/5 ML (VERSED) VIAL ONE (07:57)
[2022-10-02] MEDS ORDERED: fentaNYL INJ 100 MCG/2 ML AMP ONE (07:57)
--- NOTE | 2022-10-02 08:02 | Diagnostic Imaging Report ---
INDICATION: NON HEALING WOUND COMPARISON: 12/30/2019 FINDINGS: Single frontal view of the chest demonstrates normal heart size and pulmonary vascularity. The lungs are well aerated and clear. No large pleural effusion or pneumothorax is seen. The visualized osseous structures show no acute abnormalities. IMPRESSION: 1. No acute cardiopulmonary process. Dictated by: Dictated on workstation # [id number]
--- NOTE | 2022-10-02 08:20 | Cardiac Procedure Note-CS/ASA ---
Pre-Procedure Note Pre-Op Procedure Note Date of Available H&P: Oct 01, 2022 Date H&P Reviewed: Oct 02, 2022 Time H&P Reviewed: 08:20 History & Physical: H&P Reviewed, Patient Examed, No changes noted Pre-Operative Diagnosis: PAD Conscious Sedation Pre-Proced Time 08:20 ASA Score 3 For ASA 3 and 4: Consider anesthesia and medical clearance. Also, for patients with a history of failed moderate sedation consider anesthesia. Airway Lungs Heart ASA score ASA 1: a normal healthy patient ASA 2: a patient with a mild systemic disease (mid diabetes, controlled hypertension, obesity ASA 3: a patient with a severe systemic disease that limits activity (angina, COPD, prior Myocardial infarction) ASA 4: a patient with an incapacitating disease that is a constant threat to life (CHF, renal failure) ASA 5: a moribund patient not expected to survive 24 hrs. (ruptured aneurysm) ASA 6: a declared brain- patient whose organs are being harvested. For emergent operations, add the letter E after the classification Mallampati Classification Grade 3 Sedation Plan Analgesia, Amnesia, Plan communicated to team members, Discussed options with patient/fam, Discussed risks with patient/fam The patient is an appropriate candidate to undergo the planned procedure, sedation, and anesthesia. The patient immediately re-assessed prior to indication. ZULLY CRANE MD Oct 02, 2022 08:20
[2022-10-02] MEDS ORDERED: PATIENT MAY USE OWN MEDS, ALL PO SCH (09:00)
--- NOTE | 2022-10-02 09:00 | Discharge Inst-Post CATH ---
Discharge Inst-CATH/EP Problems Reviewed?: Yes Post Cardiac Cath/EP D/C Inst Follow Up/Plan Appointment with Dr. Wilson's office in 2 to 4 weeks <b>CARDIAC CATH/EP PROCEDURE DISCHARGE INSTRUCTIONS</b> ACTIVITY * Go Home directly and rest. * Limit activity of the leg (or wrist if it was used) for 7 days including aer obics, swimming, jogging, bicycling, etc. * Restrict stair-climbing for 7 days if possible, if not, climb up with your non-cath leg, then bring together on the same step. * Avoid lifting, pushing, pulling or excessive movement of the affected extremi ty for 7 days. * Customary sexual activity may be resumed after 2 days-use caution not to use a position that strains or causes pain to the affected extremity. * No driving for 24 hours. * NO SMOKING. * Avoid straining for bowel movements for 7 days. * Gentle walking on level ground is allowed. * Returning to work will depend on the type of procedure and the results. Your doctor will discuss this with you. CALL YOUR DOCTOR FOR ANY OF THE FOLLOWING: *If bleeding from the puncture site occurs- Apply gentle pressure to site with clean cloth and call your doctor or EMS. * If a knot or lump forms under the skin, increases in size, or causes pain. * If bruising appears to be worsening or moving further down your leg instead of disappearing. * Temperature above 101 F. CARE OF YOUR GROIN INCISION; * Bruising or purple discoloration of the skin near the puncture site is common. * You may shower only, no bathtub bathing for 5 days. Be careful to avoid slipping as your leg may feel stiff. * If a closure device was used on your femoral artery, please see the attached guide regarding care of the device and your leg. * Leave dressing on FOR 24 hours. CARE OF YOUR WRIST INCISION; * Bruising or purple discoloration of the skin near the puncture site is common. * You may shower. * DO NOT submerge wrist. * Leave dressing on FOR 24 hours. ZULLY WILSON MD Oct 02, 2022 09:00
--- NOTE | 2022-10-02 09:26 | Peripheral Report ---
Peripheral Report Physician (s)/Legal Manager (s) Physician ZULLY CRANE MD Pre-Procedure Diagnosis Pre-Procedure Diagnosis: PAD Post-Procedure Note Procedure Start Date: Oct 02, 2022 Name of Procedure: Abdominal aortogram Bilateral lower extremities runoff First order Additional imaging x2 Findings/Procedure Note PROCEDURE NOTE: 87-year-old lady with peripheral arterial disease, abnormal YUVAL/TBI, has large wound on her left leg with poor healing. Scheduled for peripheral angiogram After explaining the procedure to the patient, all pros and cons were explained, all questions were answered. The patient signed the consent and then she was placed on the cardiac catheterization laboratory. The patient was placed on the cardiac catheterization laboratory. Groin was prepped SL fashion local anesthesia was used. Sheath placed in the right femoral artery, runoff to the right lower extremity was done. Rim catheter was advanced and placed at the origin of the left common iliac artery and runoff to the left lower extremity was done. DSA imaging was done at the level of the trifurcation then repeat DSA imaging was done at the level of the foot on the left side. The rim catheter was pulled and advanced up to the abdominal aorta and abdominal aortogram was done then the catheter was pulled down above the bifurcation and angiogram was repeated. At the end of the procedure sheath was removed and Mynx device was deployed FINDINGS: Abdominal aortogram: Abdominal aorta is normal in size, no aneurysm, calcification was noted in the abdominal aorta, the superior and inferior mesenteric artery were normal, right renal artery was normal, the left renal artery was not well visualized. Right lower extremity: Common iliac, calcified, slightly tortuous with no obstructive disease Common femoral has no obstructive disease SFA has slow flow but no significant obstructive disease At the level of the trifurcation there was no significant obstructive disease but slow flow due to small vessel disease distally. Left lower extremity: Common iliac is mildly calcified with slight tortuosity with no significant obstructive disease Common femoral has no obstructive disease SFA and popliteal artery has no obstructive disease Anterior tibial artery has good runoff down to the foot with no obstructive disease Peroneal artery has good runoff with no obstructive disease down to the foot Posterior tibial artery is tapering down into very small artery and occluded slightly above the ankle. Very small artery for intervention, conservative management is recommended CONCLUSIONS: 1. Calcified abdominal aorta and iliac arteries with no obstructive disease 2. Occluded left posterior tibial artery distally, the artery tapers down into a very small artery then total occlusion above the ankle. 3. On the right side small vessel disease with slow flow down to the trifurcation DISCUSSION AND RECOMMENDATIONS: Conservative management is recommended no intervention is warranted at this point Anesthesia Type: Conscious Sedation Estimated blood loss (mL): 15 ml Contrast Amount: 45 ml Total Radiation Dose: 40 mGy Post-Procedure Diagnosis Post-operative diagnosis: Nonhealing foot ulcer Peripheral arterial disease Hypertension Hyperlipidemia ZULLY CRANE MD Oct 02, 2022 09:26
== END 2022-10-02 13:34 | disposition home or self-care (01) ==
LOC: CATH 06:57 → SDC 09:19 → CATH 13:34
PROVIDERS: ATTEND Internal Medicine Cardiovascular Disease
DX: I70.245 Atherosclerosis of native arteries of left leg with ulceration of other part of foot (principal); L97.529 Non-pressure chronic ulcer of other part of left foot with unspecified severity; I70.239 Atherosclerosis of native arteries of right leg with ulceration of unspecified site; L97.919 Non-pressure chronic ulcer of unspecified part of right lower leg with unspecified severity; E78.5 Hyperlipidemia, unspecified; I70.92 Chronic total occlusion of artery of the extremities; I25.10 Atherosclerotic heart disease of native coronary artery without angina pectoris; I13.0 Hypertensive heart and chronic kidney disease with heart failure and stage 1 through stage 4 chronic kidney disease, or unspecified chronic kidney disease; I48.0 Paroxysmal atrial fibrillation; I71.21 Aneurysm of the ascending aorta, without rupture; I50.22 Chronic systolic (congestive) heart failure; Q21.12 Patent foramen ovale; I65.23 Occlusion and stenosis of bilateral carotid arteries; N18.31 Chronic kidney disease, stage 3a; I34.0 Nonrheumatic mitral (valve) insufficiency; E78.2 Mixed hyperlipidemia; Z87.891 Personal history of nicotine dependence
CPT/HCPCS: 36245; 36248; 71045; 75625; 75716; 80053; 80061; 81000; 85027; 85610; 85730; 87081; 93005; C1760; C1769; C1887; C1894; 36415

== ENCOUNTER → 2022-12-09 | Outpatient (CLI) | payer MEDICARE ==
[~2022-12-09] MED LIST changes: +CATHETER FLUSH 10 ML SYR IV PRN; +DOXY100C5 PO; +GINK60TA2 PO; +HOLD METFORMIN - RECEIVED CONTRAST 20 ML VIAL IV SCH; +IOHEXOL 350 MG/ML 100 ML (OMNIPAQUE 350) VIAL IV ONE; +MTP25TSR PO; +NS 100 ML (IVPB) BAG IV ONE
[2022-12-09 08:30] LABS: CREATININE SERUM 0.81 MG/DL (0.60-1.30)
--- NOTE | 2022-12-09 09:55 | Diagnostic Imaging Report ---
PROCEDURE: CT angiography of the chest with contrast. TECHNIQUE: Multiple contiguous axial images were obtained through the chest after uneventful bolus administration of intravenous contrast. 3D reconstructed CTA MIP acquisitions were also performed. Auto Exposure Controls were utilized during the CT exam to meet ALARA standards for radiation dose reduction. INDICATION: Thoracic aneurysm. TECHNIQUE: Pre and post IV contrast enhanced CT angio chest utilizing arteriography protocol was performed with 2D and 3D reconstructions. COMPARISON: 11/08/2020. FINDINGS: The ascending aortic aneurysm today measures 4 cm maximally. The descending thoracic aortic aneurysm today measures 4 cm maximally. Ectasia of the great vessels is unchanged with the right innominate and subclavian measuring 1.4 cm, unchanged. No mural hematoma, dissection, or rupture. The pulmonary arterial branches remain widely patent. The thoracic aorta at the level of the hiatus is tortuous and measures 3.1 cm, unchanged. The visualized upper abdomen is nonacute. No consolidating pneumonia. Underlying COPD is chronic. No suspicious lung mass. No thoracic adenopathy. IMPRESSION: Stable atherosclerotic unruptured mild aneurysmal dilatation of the tortuous thoracic aorta with no acute aortic syndrome. Negative for PE. Chronic COPD is noted. Dictated by: Dictated on workstation # [id number]
== END ==
LOC: LAB FS 07:33
PROVIDERS: ATTEND Internal Medicine Cardiovascular Disease
DX: I71.20 Thoracic aortic aneurysm, without rupture, unspecified (principal); J44.9 Chronic obstructive pulmonary disease, unspecified
CPT/HCPCS: 36415; 71275; 82565; 84520; 93306; Q9967

== ENCOUNTER → 2023-01-20 | Outpatient (CLI) | payer MEDICARE ==
[~2023-01-20] MED LIST changes: -CATHETER FLUSH 10 ML SYR IV PRN; -HOLD METFORMIN - RECEIVED CONTRAST 20 ML VIAL IV SCH; -IOHEXOL 350 MG/ML 100 ML (OMNIPAQUE 350) VIAL IV ONE; -NS 100 ML (IVPB) BAG IV ONE
--- NOTE | 2023-01-20 17:52 | Diagnostic Imaging Report ---
Indication: Wrist pain. Study compared 06/20/2020. Findings: 3 view left wrist is performed. 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 There is widening of the scapholunate joint space but no significant displacement of the capitate. There are severe degenerative changes to the 1st CMC. No fracture or acute bony abnormality. There is no dislocation. 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 Dictated by: Dictated on workstation # [id number]
== END ==
LOC: RAD FS 10:06
PROVIDERS: ATTEND Nurse Practitioner
DX: M19.032 Primary osteoarthritis, left wrist (principal)
CPT/HCPCS: 73110

== ENCOUNTER → 2023-08-27 | Outpatient (CLI) | payer MEDICARE ==
[~2023-08-27] MED LIST changes: +CATHETER FLUSH 10 ML SYR IVP PRN; +REGADENOSON 0.4 MG/5 ML SYR IV ONE
[2023-08-27 09:33] VITALS: BP 189/93
--- NOTE | 2023-08-27 16:06 | Cardiology Stress Test Report ---
Stress Test Report Date of Procedure/Referring: Date of Procedure: Aug 27, 2023 PCP Aaron Aguilar MD Admitting Physician Admitting Physician: Attending Physician: Tiffanie Wilson MD Baseline Heart Rate: 59 Baseline Blood Pressure: Blood Pressure Systolic: 189 Blood Pressure Diastolic: 93 Baseline Vitals Vital Signs Date Time Temp Pulse Resp B/P (MAP) Pulse Ox O2 Delivery O2 Flow Rate FiO2 08/27/23 09:33 62 189/93 (125) Baseline EKG: Baseline EKG: NSR Summary After explaining the procedure to the patient, she signed a consent and then brought to the stress nuclear laboratory. Patient received 0.4 mg Lexiscan for stress test, ECG, heart rate and blood pressure were monitored continuously. Resting and stress dose of radio tracer w ere injected, imaging was acquired and reviewed in short axis, horizontal long axis and vertical long axis views. TID: 1.04 SSS: 0 SDS: 0 EF: 61 Patient tolerated Lexiscan well Baseline hypertension persisted during test Diaphragmatic attenuation with mild decrease uptake at the base of the inferior wall, there is no significant ischemia or infarction on SPECT images Normal left ventricular size, ejection fraction 61% Copy Copies To 1: AARON AGUILAR MD, BASHAR J MD Aug 27, 2023 16:06
== END ==
LOC: CARD 08-13 06:38
PROVIDERS: ATTEND Internal Medicine Cardiovascular Disease
DX: I10 Essential (primary) hypertension (principal); I25.10 Atherosclerotic heart disease of native coronary artery without angina pectoris
CPT/HCPCS: 78452; 93017; A9502